=== PATIENT | female | born 1970 | race Caucasian/White ===

== ENCOUNTER 2021-08-14 15:27 | Outpatient (CLI) | payer OTHER, SELFPAY ==
--- NOTE | ~2021-08-14 | MR_ITS ---
EXAMINATION: MR brain IAC wo con DATE: 08/14/2021 16:28 INDICATION: Headache, unspecified. TECHNIQUE: Magnetic resonance imaging (MRI) of the brain, brainstem, and internal auditory canals was performed without intravenous contrast. COMPARISON: None. FINDINGS: There is no intracranial hemorrhage, acute infarction, or abnormal intracranial mass lesion . The ventricles are normal in size. The orbits are normal. The paranasal sinuses are clear. The mast oid air cells are normal. The internal auditory canals and inner and middle ears are normal. IMPRESSION: 1. Normal brain. Reviewed, dictated and finalized at location A. IMPRESSION: 1. Normal brain.
== END 2021-08-14 15:28 | disposition home or self-care (01) ==
PROVIDERS: PCP Internal Medicine; Visit Provider Physician Assistant
DX: R51.9 Headache, unspecified (principal)
CPT/HCPCS: 70551

== ENCOUNTER 2022-06-24 07:47 | Day surgery (SDC) | payer OTHER, SELFPAY ==
[2022-06-13 09:09] VITALS: BMI 32.5
--- NOTE | 2022-06-24 09:01 | PM.HPGS ---
History of Present Illness History of Present Illness Consent: Risks, benefits, and alternatives have been discussed and questions answered. Patient agrees to proceed with procedure. Chief complaint: Neoplasm Screening Narrative: Bernice Benavides is a 52 year old female here for first screening colonoscopy Review of Systems Constitutional: Constitutional: Denies headache(s) and Denies weakness Eyes: Eyes: Denies blurry vision ENT: Reports Normal hearing present, Denies headache(s) and Denies neck pain Cardiovascular: Cardiovascular: Denies chest pain and Denies dyspnea Respiratory: Respiratory: Denies dyspnea Gastrointestinal: Gastrointestinal: Reports no additional gastrointestinal complaints Genitourinary: Genitourinary: Denies dysuria Musculoskeletal: Musculoskeletal: Denies neck pain Integumentary/Breasts: Skin/Breast: Denies dry skin Neurologic: Reports Normal hearing present, Denies headache(s) and Denies weakness Psychiatric: Psychiatric: Denies anxiety Endocrine: Endocrine: Denies change in body appearance Hematologic/Lymphatic: Hematologic/Lymphatic: Denies easy bleeding Allergic/Immunologic: Allergic/Immunologic: Denies urticaria PMFSH Past Medical History Medical History (Updated 06/24/22 @ 09:02 by Yoshi Joiner MD) Anxiety and depression Colon cancer screening High cholesterol Screening mammogram, encounter for Surgical History Surgical History History of gynecological procedure (09/20/19) mirena iud insertion Family History Family History Mother Patient's mother is in good health Father Patient's father is in good health Social History Social History (Updated 05/07/22 @ 15:30 by Shane Baltazar MA) Smoking packs per day: 1 Smoking cigarettes per day: 20.0 Years smoked: 35 Smoking pack-years: 35.00 Smoking status: Current every day smoker Tobacco type: cigarettes Second hand tobacco smoke exposure: No Alcohol intake: current Alcohol use details: rarely Substance use: never Substance use type: does not use Lack of Transportation: No Lack of Food: Never True Current Housing: I Have Housing Concerned About Future Housing: No Difficulty Paying Gas/Electric Bills: No Difficulty Paying for Meds: No Currently Unemployed: No Education: Bachelor's Degree Difficulty w/ Childcare or Family Care: No Living arrangements: with family Spiritual care concerns: No Meds Home Medications and Allergies Home Medications Medication Instructions Recorded Confirmed Type alprazolam 0.5 mg tablet (Xanax) 0.5 mg PO BID PRN Anxiety 03/17/19 06/24/22 History fluoxetine 40 mg capsule (Prozac) 40 mg PO DAILY 03/17/19 06/24/22 History albuterol sulfate 90 mcg/actuation 2 puff inhalation Q4-6H PRN 12/25/21 06/24/22 Rx aerosol inhaler (ProAir HFA) shortness of breath or wheezing #8.5 grams simvastatin 20 mg tablet 20 mg PO DAILY #90 tabs 01/25/22 06/24/22 Rx ergocalciferol (vitamin D2) 1,250 50,000 unit PO WEEKLY #13 caps 04/26/22 06/24/22 Rx mcg (50,000 unit) capsule imiquimod 3.75 % topical cream 1 packet topical QHS #28 ea 05/07/22 06/24/22 Rx packet Allergies Allergy/AdvReac Type Severity Reaction Status Date / Time No Known Allergies Allergy Verified 06/24/22 08:34 Exam Const: General: comfortable and no acute distress HENMT: Face/Nose/Sinus: Normal nares present Eyes: General: appearance normal, both eyes and all related structures Neck: Neck: no JVD Resp: Auscultation: clear to auscultation bilaterally Cardio: Rate: regular rate Rhythm: regular rhythm GI: Inspection: non-distended GI Palp: Yes Soft to palpation Skin: General skin exam: normal color Neuro: General: gait normal Speech: normal speech Extrem: General: normal to inspection Psych: Mental Status: mental stat
[2022-06-24] MEDS: LACTATED RINGERS 1,000 ML 150 ML IV CONT (09:02)
[2022-06-24 09:22] VITALS: BP 118/63; PULSE 69; RESP 16; O2SAT 94
[2022-06-24 09:32] VITALS: BP 127/67; PULSE 62; RESP 20; O2SAT 94
--- NOTE | 2022-06-24 09:36 | WPDANESPN ---
Anes - Prog Note Post-Op Date/Time: 06/24/22 09:36 Cardiovascular status: normal Respiratory status: normal Airway patency: baseline Mental status: baseline Post-Op hydration status: normal Pain Score (VAS): 0 I/O: Intake & Output 06/23/22 06/24/22 06/24/22 23:59 07:59 15:59 Intake Total 200 Balance 200 Patient Feedback: Patient satisfied with anesthetic care.
[2022-06-24 09:42] VITALS: BP 146/67; PULSE 72; RESP 20; O2SAT 98
--- NOTE | 2022-06-24 09:46 | WPDANESEPPF ---
Anes - Initial Pre Proc Eval Procedure: Operation Date: 06/24/22 09:30 Proposed Procedures p Screening Colonoscopy - Yoshi Joiner MD Date/Time: 06/24/22 09:46 Surgeon: Yoshi Joiner MD Pre Op Diagnosis: Neoplasm Screening Patient Data Age: 52 Gender: F Height: 1.63 m Weight: 85.9 kg Last Vital Signs Pulse 62 06/24/22 09:32 Resp 20 06/24/22 09:32 BP 127/67 06/24/22 09:32 Pulse Ox 94 06/24/22 09:32 O2 Del Method Room Air 06/24/22 09:32 Allergies Allergy/AdvReac Type Severity Reaction Status Date / Time No Known Allergies Allergy Verified 06/24/22 08:34 Home Medications Medication Instructions Recorded Confirmed Type alprazolam 0.5 mg tablet (Xanax) 0.5 mg PO BID PRN Anxiety 03/17/19 06/24/22 History fluoxetine 40 mg capsule (Prozac) 40 mg PO DAILY 03/17/19 06/24/22 History albuterol sulfate 90 mcg/actuation 2 puff inhalation Q4-6H PRN 12/25/21 06/24/22 Rx aerosol inhaler (ProAir HFA) shortness of breath or wheezing #8.5 grams simvastatin 20 mg tablet 20 mg PO DAILY #90 tabs 01/25/22 06/24/22 Rx ergocalciferol (vitamin D2) 1,250 50,000 unit PO WEEKLY #13 caps 04/26/22 06/24/22 Rx mcg (50,000 unit) capsule imiquimod 3.75 % topical cream 1 packet topical QHS #28 ea 05/07/22 06/24/22 Rx packet Patient hx anesthesia problems: none Family hx anesthesia problems: none Results Review: All pre-operative results and documents have been reviewed as part of the pre-operative evaluation. [facility] Past Medical History Medical History Anxiety and depression Colon cancer screening High cholesterol Screening mammogram, encounter for Surgical History Surgical History History of gynecological procedure (09/20/19) mirena iud insertion Family History Family History Mother Patient's mother is in good health Father Patient's father is in good health Social History Social History Smoking packs per day: 1 Smoking cigarettes per day: 20.0 Years smoked: 35 Smoking pack-years: 35.00 Smoking status: Current every day smoker Tobacco type: cigarettes Second hand tobacco smoke exposure: No Alcohol intake: current Alcohol use details: rarely Substance use: never Substance use type: does not use Lack of Transportation: No Lack of Food: Never True Current Housing: I Have Housing Concerned About Future Housing: No Difficulty Paying Gas/Electric Bills: No Difficulty Paying for Meds: No Currently Unemployed: No Education: Bachelor's Degree Difficulty w/ Childcare or Family Care: No Living arrangements: with family Spiritual care concerns: No Anes - Eval Final PreProcedure Day of Procedure 06/24/22 09:46 Patient weight: obese Heart: regular rate and rhythm Lungs: decreased breath sounds Airway: Mallampati scale class II Neurological: alert and oriented Last oral intake: >/= 8 hours ASA classification: III Emergent: no Anesthetic plan: proceed Anesthesia type and monitoring: general GIVS and standard monitoring Results Review: All pre-operative results and documents have been reviewed as part of the pre-operative evaluation. Informed Consent: The patient's anesthetic plan and its attendant risks and benefits were discussed with the patient/family/POA. Questions were solicited and answers provided to the satisfaction of the patient/family/POA.
== END 2022-06-24 10:11 | disposition home or self-care (01) ==
PROVIDERS: PCP Internal Medicine; Visit Provider Internal Medicine Gastroenterology
PROC: 0DJD8ZZ Inspection of Lower Intestinal Tract, Via Natural or Artificial Opening Endoscopic (ICD-10-PCS; CPT 45378; principal; 2022-06-24 09:30)
DX: Z12.11 Encounter for screening for malignant neoplasm of colon (principal)
CPT/HCPCS: 45385

== ENCOUNTER 2022-06-24 09:00 | Outpatient (NON) | payer OTHER, SELFPAY | END 2022-06-24 09:01 | disposition home or self-care (01) | LOC: ANHLAB 06-25 10:19 | PROVIDERS: PCP Internal Medicine; Visit Provider Internal Medicine Gastroenterology | DX: Z12.11 Encounter for screening for malignant neoplasm of colon (principal) | CPT/HCPCS: 88305 ==

== ENCOUNTER → 2022-06-26 15:12 | Outpatient (CLI) | payer OTHER, SELFPAY ==
--- NOTE | ~2022-06-26 | MM_ITS ---
EXAMINATION: MM screening [facility] BI [facility] HISTORY: Screening mammogram TECHNIQUE: Craniocaudal and mediolateral oblique 3-D tomosynthesis images were obtained and synthetic 2-D images were generated. CAD analysis was submitted and interpreted. COMPARISON: 05/09/2016, 08/05/2008 BREAST PARENCHYMAL COMPOSITION: There are scattered areas of fibroglandular density. FINDINGS: No suspicious mass, calcification, or architectural distortion are identified in either jamir ast to suggest malignancy. There has been no suspicious interval change. IMPRESSION: 1. No mammographic evidence of malignancy. 2. Recommend routine screening mammography in one year. BI-RADS Category 1: Negative Reviewed, dictated and finalized at location A. 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
== END ==
PROVIDERS: PCP Internal Medicine; Visit Provider Obstetrics & Gynecology
DX: Z12.31 Encounter for screening mammogram for malignant neoplasm of breast (principal)
CPT/HCPCS: 77063; 77067

== ENCOUNTER 2023-03-31 13:37 | Outpatient (CLI) | payer OTHER, SELFPAY ==
--- NOTE | ~2023-03-31 | CT_ITS ---
CT Scan of the Chest without Contrast: Clinical Indication: Lung cancer screening, smoker Technique: Contiguous sections were acquired throughout the chest without intravenous contrast. Dose reduction technique was used on this scan by utilizing automated exposure control and iterative recon struction technique. The dose-length product (DLP) was 194.71 mGy-cm. Findings: There is no evidence of any significant mediastinal, hilar or axillary lymphadenopathy. The mediastin al soft tissues appear normal. There is no evidence of pleural or pericardial effusion. Calcified granulomas are present. No noncalcified pulmonary nodules. Images through the upper abdomen reveal no abnormalities. Impression: Lung RADS 2: Benign appearance. 12 month follow-up screening CT advised. Reviewed, dictated and finalized at location . 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 12 month follow-up screening CT advised.
== END 2023-03-31 13:38 | disposition home or self-care (01) ==
PROVIDERS: PCP Internal Medicine; Visit Provider Physician Assistant
DX: Z12.2 Encounter for screening for malignant neoplasm of respiratory organs (principal); Z87.891 Personal history of nicotine dependence
CPT/HCPCS: 71271

== ENCOUNTER 2023-06-28 11:09 | Outpatient (CLI) | payer OTHER, SELFPAY ==
--- NOTE | ~2023-06-28 | MM_ITS ---
EXAMINATION: MM screening [facility] HISTORY: Screening mammogram TECHNIQUE: Craniocaudal and mediolateral oblique 3-D tomosynthesis images were obtained and synthetic 2-D images were generated. CAD analysis was submitted and interpreted. COMPARISON: 06/26/2022, 05/09/2016 bilateral screening mammogram examinations BREAST PARENCHYMAL COMPOSITION: There are scattered areas of fibroglandular density. FINDINGS: Stable mild fibroglandular asymmetry. There is no evidence of suspicious mass, calcificatio n, or architectural distortion to suggest malignancy in either breast. There has been no suspicious i nterval change. IMPRESSION: 1. No mammographic evidence of malignancy. 2. Recommend routine screening mammography in one year. BI-RADS Category 1: Negative Reviewed, dictated and finalized at location A.
== END 2023-06-28 11:10 ==
LOC: MICIMG 11:09
PROVIDERS: PCP Obstetrics & Gynecology; Visit Provider Obstetrics & Gynecology
DX: Z12.31 Encounter for screening mammogram for malignant neoplasm of breast (principal)
CPT/HCPCS: 77063; 77067

== ENCOUNTER 2024-07-26 14:43 | Outpatient (CLI) | payer OTHER, SELFPAY ==
--- NOTE | ~2024-07-26 | MM_ITS ---
EXAMINATION: MM screening [facility] BI [facility] HISTORY: Screening TECHNIQUE: Craniocaudal and mediolateral oblique 3-D tomosynthesis images were obtained and synthetic 2-D images were generated. CAD analysis was submitted and interpreted. COMPARISON: Comparison to multiple prior studies sequentially, with oldest reviewed study dated 05/09. BREAST PARENCHYMAL COMPOSITION: Not dense: There are scattered areas of fibroglandular density. FINDINGS: There is no evidence of suspicious mass, calcification, or architectural distortion to sugg est malignancy in either breast. There has been no suspicious interval change. IMPRESSION: 1. No mammographic evidence of malignancy. 2. Recommend routine screening mammography in one year. BI-RADS Category 1: Negative Reviewed, dictated and finalized at location A.
== END 2024-07-26 14:44 | disposition home or self-care (01) ==
LOC: MICIMG 14:44
PROVIDERS: PCP Internal Medicine; Visit Provider Obstetrics & Gynecology
DX: Z12.31 Encounter for screening mammogram for malignant neoplasm of breast (principal)
CPT/HCPCS: 77063; 77067

== ENCOUNTER 2025-01-19 14:45 | Outpatient (CLI) | payer OTHER, SELFPAY ==
--- NOTE | ~2025-01-19 | CT_ITS ---
EXAMINATION:CT lung screening DATE: 01/19/2025 15:12 INDICATION: Tobacco use. Current smoker with 22 pack year history. TECHNIQUE: Computed tomography (CT) of the chest was performed without intravenous contrast. Automated exposure control and iterative reconstruction technique were employed. The dose-length product (DLP) was 148.29 mGy-cm. COMPARISON: Chest CT 03/31/2023 FINDINGS: There is mild emphysema. The lungs demonstrate minimal atelectasis. Calcified bilateral lung nodules and calcified bilateral hilar lymph nodes are consistent with old granulomatous disease. No pleural effusion. The heart size is normal. There are coronary artery calcifications. No pericardial effusion. There is mild thoracic spondylosis. There is mild chronic anterior wedging of T7 vertebral body. IMPRESSION: 1. Lung-RADS category 1: Negative. Continue annual screening with noncontrast low-dose chest CT in 12 months. Reviewed, dictated and finalized at location E. IMPRESSION: 1. Lung-RADS category 1: Negative. Continue annual screening with noncontrast l ow-dose chest CT in 12 months.
--- OUTSIDE RECORDS SUMMARY | 2025-01-19 14:49 | XMS_ITS | Clinical Summary ---
Author Organization [facility] Address [address] [place] [address] Care Team Providers Care Manager Safe Name Role Phone Unavailable Primary Care Provider Unavailabl e Source Comments [facility],non-owned Affiliates and Associated Physician Practices is amultiple site organization consisting of ambulatory clinics and hospital sitesin [place], [place], [place] and [place]. This disclosure is being madepursuant to the Care Everywhere program and may not contain all information available regarding this patient. Last updated 18.[facility] Allergies No known active allergies Medications * Be aware that medications may not be up to date on this document. Alwaysverify current medications with the patient. FLUoxetine HCl (PROZAC PO) Active DULoxetine HCl (CYMBALTA PO) Active ofloxacin (OCUFLOX) 0.3 % ophthalmic solution 1-2 gtts every 2-4 hours for 2 days, then QID x 5 days 1 bottles 01/03/2018 Active Family History Medical History Relation Name Comments Asthma Neg Hx Autoimmune Disease Neg Hx Bipolar Disorder Neg Hx Cancer - Breast Neg Hx Cancer - Colon Neg Hx Cancer - Other Neg Hx Cancer - Ovarian Neg Hx Cancer - Pancreatic Neg Hx Cancer - Prostate Neg Hx Depression Neg Hx Eczema Neg Hx Hypertension Neg Hx Migraine Neg Hx Osteoporosis Neg Hx Seizures Neg Hx Sudd. <30 Neg Hx Thyroid Disease Neg Hx Ulcerative Colitis Neg Hx Relation Name Status Comments Father Alive Mother Alive Social History Tobacco Use Types Packs/Day Years Used Date Smoking Tobacco: Every Day Smokeless Tobacco: Never Tobacco Cessation:Ready to Q uit: No; Counseling Given: No Alcohol Use Standard Drinks/Week Comments No 0 (1 standard drink = 0.6 oz pur e alcohol) Comments No Sex and Gender Information Value Date Recorded Sex Assigned at Not on file Legal Sex Female 2:47 PM CDT Gender Identity Not on file Sexual Orientation Not on file Last Filed Vital Signs Vital Sign Reading Time Taken Comments Blood Pressure 124/80 01/03/2018 2:55 PM CDT Pulse 80 01/03/2018 2:55 PM CDT Temperature 36.8 C (98.2 F) 01/03/2018 2:55 PM CDT Respiratory Rate 20 01/03/2018 2:55 PM CDT Oxygen Saturation 97% 01/03/2018 2:55 PM CDT Inhaled Oxygen Concentration - - Weight 81.6 kg (180 lb) 01/03/2018 2:55 PM CDT Height 162.6 cm (5' 4) 01/03/2018 2:55 PM CDT Body Mass Index 30.9 01/03/2018 2:55 PM CDT Plan of Treatment Health Maintenance Due Date Last Done Comments COLOGUARD (AGES 45-75) - COL ON CA SCREENING 1972 COLON MONITORING 1972 COLONOSCOPY - COLON CA SCREENING 1972 CT COLONOGRAPHY - COLON CA SCREENING 1972 Colorectal Cancer Screening 1972 FIT - COLON CA SCREENING 1972 FLEX SIG - COLON CA SCREENING 1972 LIPID TESTING 1972 MAMMOGRAM 1972 HIV SCREENING 02/07/1987 HEPATITIS C SCREENING 02/03/1990 DTAP/TDAP/TD VACCINES (1 - Tdap) 02/07/1991 HEPATITIS B VACCINE (1 of 3 - 19+ 3-dose series) 02/07/1991 PNEUMOCOCCAL VACCINE 50+ (1 of 2 - PCV) 02/07/1991 SCREENING FOR DIABETES 01/03/2018 ZOSTER VACCINE (1 of 2) 02/07/2022 DEPRESSION SCREENING 04/21/2024 COVID-19 VACCINE (1 - 2023-2 5 season) 2024 INFLUENZA VACCINE (#1) 2024 HIB VACCINE Aged Out No longer eligi ble based on patient's age to complete this topic HPV VACCINE Aged Out No longer eligi ble based on patient's age to complete this topic MENINGOCOCCAL (Group B) VACC INE SHARED DECISION-MAKING Aged Out No longer eligibl e based on patient's age to complete this topic MENINGOCOCCAL GROUPS A/C/Y/W VACCINE Aged Out No longer eligible b ased on patient's age to complete this topic Insurance [facility] Member Subscriber Plan / Payer (Ef fective 2017-Present) Name:Adrián Npaoles Relation to Subscriber:Self Name:Adrián Napoles Payer ID:[id number] (NAIC) Type:[employer] Address: [place] [phone] Member Subscriber Plan / Payer (Ef fective 2022-Present) Name:Adrián Napoles Relation to Subscriber:Self Name:ADRIÁN NAPOLES Payer ID:[id number] (NAIC) Type:[employer] Address: [place] [phone]
--- OUTSIDE RECORDS SUMMARY | 2025-01-19 14:49 | XMS_ITS | Patient Health Record ---
Author Organization [facility] Address [address] [place] [address] Care Team Providers Care Renal Dialysis Technician Name Role Phone Yassine HAYWARD Darrel Primary Care Provider Unavailleah ernestina Bernice Fofana Unavailable [phone] Allergies No Known Allergies Results Component Value Reference Range Flag Notes DRUG MONITOR,AMPHETAMINE, W/ DL, QN URINE (00525) Reviewed date:09/09/2024 08:16:55 AM Interpretation: Performing Lab:SARAH [facility] Opdx1415 [facility] EddbAC[address] Domenico Peres, Director - [address] [address] [facility] Notes/Report: FASTING: NO Amphetamine NEGATIVE <250 ng/mL Methamphetamine NEGATIVE <250 ng/mL Amphetamines Comments See LDT Notes Notes and Comments This drug testing is for medical treatment only. Analysis was performed as non-forensic testing and these results should be used only by healthcare providers to render diagnosis or treatment, or to monitor progress of medical conditions. Benzodiazepines Notes: aOH Alprazolam detected is consistent with the use of the drug Alprazolam. Buprenorphine Notes: Buprenorphine, Norbuprenorphine detected is consistent with the use of the drug(s) Buprenorphine or Buprenorphine with Naloxone. Naloxone may be negative due to poor oral bioavailability and/or short half-life. Buprenorphine, Norbuprenorphine, Naloxone detected is consistent with the use of the drug Buprenorphine and Naloxone. LDT Notes: Confirmation tests were developed and their analytical performance characteristics have been determined by [facility]. It has not been cleared or approved by the FDA. This assay has been validated pursuant to the CLIA regulations and is used for clinical purposes. medMATCH(R) enables providers to identify if drug use is consistent or inconsistent with a corresponding prescribed medication(s) list. Healthcare Providers needing Interpretation assistance, please contact us at [phone] ( ) M-F, 8am to 10pm EST DRUG MONITOR, BENZO, QN, URI NE ([id number]) Reviewed date:09/09/2024 08:16:44 AM Interpretation: Performing Lab:SARAH [facility] [address], TARIS BiomedicalKiviYM[address] Domenico Peres Notes/Report: FASTING: NO Alphahydroxyalprazolam 120 <25 ng/mL H medMATCH aOH alprazolam INCONSISTENT A Alphahydroxymidazolam NEGATIVE <50 ng/mL Alphahydroxytriazolam NEGATIVE <50 ng/mL Aminoclonazepam NEGATIVE <25 ng/mL Hydroxyethylflurazepam NEGATIVE <50 ng/mL Lorazepam NEGATIVE <50 ng/mL Nordiazepam NEGATIVE <50 ng/mL Oxazepam NEGATIVE <50 ng/mL Temazepam NEGATIVE <50 ng/mL Benzodiazepines Comments See Benzodiazepines Notes, LDT Notes DRUG MONITOR, METHADONE META B, QN, URINE ([id number]) Reviewed date:09/09/2024 08:15:42 AM Interpretation: Performing Lab:SARAH [facility] [address], KimLink Auto DetailingZjlcLE[address] Domenico Peres Notes/Report: FASTING: NO EDDP NEGATIVE <100 ng/mL Methadone NEGATIVE <100 ng/mL Methadone Comments See LD T Notes DRUG MONITOR, OPIATES EXPAND ED, QN, URINE ([id number]) Reviewed date:09/09/2024 08:15:11 AM Interpretation: Performing Lab:SARAH [facility] [address], KimLink Auto DetailingRyokZC[address] Domenico Peres Notes/Report: FASTING: NO Codeine NEGATIVE <50 ng/mL Hydrocodone NEGATIVE <50 ng/mL Hydromorphone NEGATIVE <50 ng/mL Morphine NEGATIVE <50 ng/mL Norhydrocodone NEGATIVE <50 ng/mL Opiates Comments See LDT Notes Noroxycodone NEGATIVE <50 ng/mL Oxycodone NEGATIVE <50 ng/mL Oxymorphone NEGATIVE <50 ng/mL Oxycodone Comments See LD T Notes DRUG MONITOR, BUP AND NALOXO NE,QN,URINE ([id number]) Reviewed date:09/09/2024 08:16:28 AM Interpretation: Performing Lab:Kelli SMITH-Miguel [address], [place] SqrgBT[address] Domenico Peres Notes/Report: FASTING: NO Buprenorphine 141 <2 ng/mL H medMATCH Buprenorphine INCONSISTENT A Norbuprenorphine 373 <2 ng/mL H medMATCH Norbuprenorphine INCONSISTENT A Naloxone 314 <2 ng/mL H medMATCH Naloxone INCONSISTENT A Buprenorphine Comments Se e Buprenorphine Notes, LDT Notes DRUG MONITOR,CARISOPRODOL ME TAB, QN, URINE ([id number]) Reviewed date:09/09/2024 08:16:03 AM Interpretation: Performing Lab:Kelli SMITH-Miguel [address], [place] OmcsKT[address] Domenico Peres Notes/Report: FASTING: NO Meprobamate NEGATIVE <1000 ng/mL Carisoprodol Comments See LDT Notes PRESCRIBED DRUGS, medMATCH(R ) ([id number]) Reviewed date:09/09/2024 08:17:07 AM Interpretation: Performing Lab:Kelli BLAND-Bsvema[address], NivoedAT[address] Norah Mays MD Notes/Report: FASTING: NO medMATCH Summary Prescribed Prescribed Not Prescribed Consistent Inconsistent Inconsistent Alphahydroxyalprazol am Buprenorphine Naloxone Norbuprenorphine DRUG MONITOR,MITRAGYNINE, QN , URINE ([id number]) Reviewed date:09/09/2024 08:15:32 AM Interpretation: Performing Lab:Kelli SMITH-Miguel [address], [place] RxxpCB[address] Domenico Peres Notes/Report: FASTING: NO Mitragynine NEGATIVE <2 ng/mL Mitragynine Comments See LDT Notes DRUG MONITOR,AMPHETAMINE, W/ DL, QN URINE ([id number]) Reviewed date:10/07/2024 11:41:45 AM Interpretation: Performing Lab:Kelli SMITH-Miguel Kennedye13[address] [facility]oni[facility] HospitalMiguel méndezMmjhMJ[address] Domenico V Ja, Director - [address] [address] [facility] Notes/Report: FASTING: NO Amphetamine NEGATIVE <250 ng/mL Methamphetamine NEGATIVE <250 ng/mL Amphetamines Comments See LDT Notes Notes and Comments This drug testing is for medical treatment only. Analysis was performed as non-forensic testing and these results should be used only by healthcare providers to render diagnosis or treatment, or to monitor progress of medical conditions. Benzodiazepines Notes: aOH Alprazolam detected is consistent with the use of the drug Alprazolam. Buprenorphine Notes: Buprenorphine, Norbuprenorphine detected is consistent with the use of the drug(s) Buprenorphine or Buprenorphine with Naloxone. Naloxone may be negative due to poor oral bioavailability and/or short half-life. Buprenorphine, Norbuprenorphine, Naloxone detected is consistent with the use of the drug Buprenorphine and Naloxone. LDT Notes: Confirmation tests were developed and their analytical performance characteristics have been determined by [facility]. It has not been cleared or approved by the FDA. This assay has been validated pursuant to the CLIA regulations and is used for clinical purposes. medMATCH(R) enables providers to identify if drug use is consistent or inconsistent with a corresponding prescribed medication(s) list. Healthcare Providers needing Interpretation assistance, please contact us at [phone] ( ) M-F, 8am to 10pm EST PRESCRIBED DRUGS, medMATCH(R ) (28687) Reviewed date:10/07/2024 11:42:05 AM Interpretation: Performing Lab:Kelli BLAND [employer]-Yeyqad[address], SutiqqWK[address] Norah Mays MD Notes/Report: FASTING: NO medMATCH Summary Prescribed Prescribed Not Prescribed Consistent Inconsistent Inconsistent Alprazolam Naloxone Buprenorphine Prescribed Drug 1 Alprazolam Prescribed Drug 2 Buprenorphine DRUG MONITOR, NALTREXONE, QN , URIN (50286) Reviewed date:10/07/2024 11:40:42 AM Interpretation: Performing Lab:Kelli SMITH-Miguel [address], TARIS BiomedicalQwmpPB[address] Domenico Peres Notes/Report: FASTING: NO Naltrexone NEGATIVE <5 ng/mL 6 Beta Naltrexol NEGATIVE <5 ng/mL Naltrexone Comments See L DT Notes DRUG MONITOR, BUP AND NALOXO NE,QN,URINE (35534) Reviewed date:10/07/2024 11:41:21 AM Interpretation: Performing Lab:SARAH [facility]-[employer] Detailinge[address], [employer] Serv[employer] SolutionsXnymTA[address] Domenico Peres Notes/Report: FASTING: NO Buprenorphine 225 <2 ng/mL H medMATCH Buprenorphine CONSISTENT Norbuprenorphine 547 <2 ng/mL H medMATCH Norbuprenorphine CONSISTENT Naloxone 1054 <2 ng/mL H medMATCH Naloxone INCONSISTENT A Buprenorphine Comments Se e Buprenorphine Notes, LDT Notes DRUG MONITOR, OPIATES EXPAND ED, QN, URINE ([id number]) Reviewed date:10/07/2024 11:40:32 AM Interpretation: Performing Lab:SARAH [facility]-[employer] Detailinge[address] [employer], [employer] Servicing SolutionsJmjaFB[address] Domenico Peres Notes/Report: FASTING: NO Codeine NEGATIVE <50 ng/mL Hydrocodone NEGATIVE <50 ng/mL Hydromorphone NEGATIVE <50 ng/mL Morphine NEGATIVE <50 ng/mL Norhydrocodone NEGATIVE <50 ng/mL Opiates Comments See LDT Notes Noroxycodone NEGATIVE <50 ng/mL Oxycodone NEGATIVE <50 ng/mL Oxymorphone NEGATIVE <50 ng/mL Oxycodone Comments See LD T Notes DRUG MONITOR, BENZO, QN, URI NE (76266) Reviewed date:10/07/2024 11:41:34 AM Interpretation: Performing Lab:SARAH [facility] [address], TARIS BiomedicalAzdwTM[address] Domenico Peres Notes/Report: FASTING: NO Alphahydroxyalprazolam 124 <25 ng/mL H medMATCH aOH alprazolam CONSISTENT Alphahydroxymidazolam NEGATIVE <50 ng/mL Alphahydroxytriazolam NEGATIVE <50 ng/mL Aminoclonazepam NEGATIVE <25 ng/mL Hydroxyethylflurazepam NEGATIVE <50 ng/mL Lorazepam NEGATIVE <50 ng/mL Nordiazepam NEGATIVE <50 ng/mL Oxazepam NEGATIVE <50 ng/mL Temazepam NEGATIVE <50 ng/mL Benzodiazepines Comments See Benzodiazepines Notes, LDT Notes UDT Reviewed date:07/23/2024 03:04:40 PM Interpretation: Performing Lab: Notes/Report: THC NEG 0 - 50 ng/ml Cocaine NEG 0 - 300 ng/ml Amphetamine NEG 0 - 1000 ng/ml Buprenorphine (BUP) POS 0 - 10 ng/ml Secobarbital (Bar) NEG 0 - 300 ng/ml Oxazepam (BZO) POS 0 - 300 ng/ml 6-quecyujrni-0,9-qrrtlsex-0, 3-dip henylpyrrolidine (EDDP) NEG 0 - 300 ng/ml Methamphetamine (MET) NEG 0 - 1000 ng/ml Methylenedioxymethamphetamin e (MDMA) NEG 0 - 500 ng/ml Morphine (MOP 300/JZQ7342) NEG 0 - 300 ng/ml Methadone (MTD) NEG 0 - 300 ng/ml Phencyclidine (PCP) NEG 0 - 25 ng/ml Nortriptyline (TCA) NEG 0 - 1000 ng/ml Oxycodone NEG 0 - 300 ng/ml x NEG 0 - 300 ng/ml UDT Reviewed date:09/02/2024 03:30:46 PM Interpretation: Performing Lab: Notes/Report: THC NEG 0 - 50 ng/ml Cocaine NEG 0 - 300 ng/ml Amphetamine NEG 0 - 1000 ng/ml Buprenorphine (BUP) POS 0 - 10 ng/ml Secobarbital (Bar) NEG 0 - 300 ng/ml Oxazepam (BZO) POS 0 - 300 ng/ml 9-gokwrypehq-7,6-oxnvhoev-6, 3-dip henylpyrrolidine (EDDP) NEG 0 - 300 ng/ml Methamphetamine (MET) NEG 0 - 1000 ng/ml Methylenedioxymethamphetamin e (MDMA) NEG 0 - 500 ng/ml Morphine (MOP 300/HTH0869) NEG 0 - 300 ng/ml Methadone (MTD) NEG 0 - 300 ng/ml Phencyclidine (PCP) NEG 0 - 25 ng/ml Nortriptyline (TCA) NEG 0 - 1000 ng/ml Oxycodone NEG 0 - 300 ng/ml x NEG 0 - 300 ng/ml UDT Reviewed date:08/02/2024 12:14:02 PM Interpretation: Performing Lab: Notes/Report: THC NEG 0 - 50 ng/ml Cocaine NEG 0 - 300 ng/ml Amphetamine NEG 0 - 1000 ng/ml Buprenorphine (BUP) POS 0 - 10 ng/ml Secobarbital (Bar) NEG 0 - 300 ng/ml Oxazepam (BZO) POS 0 - 300 ng/ml 0-aubqczlzvr-0,5-xjezmzsi-4, 3-dip henylpyrrolidine (EDDP) NEG 0 - 300 ng/ml Methamphetamine (MET) NEG 0 - 1000 ng/ml Methylenedioxymethamphetamin e (MDMA) NEG 0 - 500 ng/ml Morphine (MOP 300/UNX7981) NEG 0 - 300 ng/ml Methadone (MTD) NEG 0 - 300 ng/ml Phencyclidine (PCP) NEG 0 - 25 ng/ml Nortriptyline (TCA) NEG 0 - 1000 ng/ml Oxycodone NEG 0 - 300 ng/ml x NEG 0 - 300 ng/ml DRUG MONITOR, BENZO, QN, URI NE ([id number]) Reviewed date:07/29/2024 08:10:04 AM Interpretation: Performing Lab:SARAH [facility]-[employer] Detailinge[address] [employer] Domenico Peres Notes/Report: FASTING: NO Alphahydroxyalprazolam 182 <25 ng/mL H medMATCH aOH alprazolam CONSISTENT Alphahydroxymidazolam NEGATIVE <50 ng/mL Alphahydroxytriazolam NEGATIVE <50 ng/mL Aminoclonazepam NEGATIVE <25 ng/mL Hydroxyethylflurazepam NEGATIVE <50 ng/mL Lorazepam NEGATIVE <50 ng/mL Nordiazepam NEGATIVE <50 ng/mL Oxazepam NEGATIVE <50 ng/mL Temazepam NEGATIVE <50 ng/mL Benzodiazepines Comments See Benzodiazepines Notes, LDT Notes DRUG MONITOR, BUP AND NALOXO NE,QN,URINE ([id number]) Reviewed date:07/29/2024 08:09:52 AM Interpretation: Performing Lab:SARAH [facility]-Kim[employer] Auto Detailinge[address] PlateJoyL[address] Domenico Peres, Director - [address] [facility] Notes/Report: FASTING: NO Buprenorphine 524 <2 ng/mL H medMATCH Buprenorphine INCONSISTENT A Norbuprenorphine 997 <2 ng/mL H medMATCH Norbuprenorphine INCONSISTENT A Naloxone 1612 <2 ng/mL H medMATCH Naloxone INCONSISTENT A Buprenorphine Comments Se e Buprenorphine Notes, LDT Notes Notes and Comments This drug testing is for medical treatment only. Analysis was performed as non-forensic testing and these results should be used only by healthcare providers to render diagnosis or treatment, or to monitor progress of medical conditions. Benzodiazepines Notes: aOH Alprazolam detected is consistent with the use of the drug Alprazolam. Buprenorphine Notes: Buprenorphine, Norbuprenorphine detected is consistent with the use of the drug(s) Buprenorphine or Buprenorphine with Naloxone. Naloxone may be negative due to poor oral bioavailability and/or short half-life. Buprenorphine, Norbuprenorphine, Naloxone detected is consistent with the use of the drug Buprenorphine and Naloxone. LDT Notes: Confirmation tests were developed and their analytical performance characteristics have been determined by [facility]. It has not been cleared or approved by the FDA. This assay has been validated pursuant to the CLIA regulations and is used for clinical purposes. medMATCH(R) enables providers to identify if drug use is consistent or inconsistent with a corresponding prescribed medication(s) list. Healthcare Providers needing Interpretation assistance, please contact us at [phone] ( ) M-F, 8am to 10pm EST PRESCRIBED DRUGS, medMATCH(R ) ([id number]) Reviewed date:07/29/2024 08:10:19 AM Interpretation: Performing Lab:BALDO [facility]-Jsrlbn[address], MfcqyyZA[address] Norah Mays MD Notes/Report: FASTING: NO medMATCH Summary Prescribed Prescribed Not Prescribed Consistent Inconsistent Inconsistent Alprazolam Buprenorphine Naloxone Norbuprenorphine Prescribed Drug 1 Alprazolam DRUG MONITOR,AMPHETAMINE, W/ DL, QN URINE (25099) Reviewed date:08/12/2024 08:01:30 AM Interpretation: Performing Lab:Kelli SMITH-Miguel Pnmt[address], [place] KennedyXrevKT[address] Domenico Peres, Director - [address] [address] GarrettBaihe-[place] Notes/Report: FASTING: NO Amphetamine NEGATIVE <250 ng/mL Methamphetamine NEGATIVE <250 ng/mL Amphetamines Comments See LDT Notes Notes and Comments This drug testing is for medical treatment only. Analysis was performed as non-forensic testing and these results should be used only by healthcare providers to render diagnosis or treatment, or to monitor progress of medical conditions. Benzodiazepines Notes: aOH Alprazolam detected is consistent with the use of the drug Alprazolam. Buprenorphine Notes: Buprenorphine, Norbuprenorphine detected is consistent with the use of the drug(s) Buprenorphine or Buprenorphine with Naloxone. Naloxone may be negative due to poor oral bioavailability and/or short half-life. Buprenorphine, Norbuprenorphine, Naloxone detected is consistent with the use of the drug Buprenorphine and Naloxone. LDT Notes: Confirmation tests were developed and their analytical performance characteristics have been determined by [facility]. It has not been cleared or approved by the FDA. This assay has been validated pursuant to the CLIA regulations and is used for clinical purposes. medMATCH(R) enables providers to identify if drug use is consistent or inconsistent with a corresponding prescribed medication(s) list. Healthcare Providers needing Interpretation assistance, please contact us at [phone] ( ) M-F, 8am to 10pm EST DRUG MONITOR, BENZO, QN, URI NE ([id number]) Reviewed date:08/12/2024 08:01:20 AM Interpretation: Performing Lab:Kelli SMITH-[employer] Detailinge[address], KimLink Auto DetailingSywwIJ[address] Domenico Peres Notes/Report: FASTING: NO Alphahydroxyalprazolam 140 <25 ng/mL H medMATCH aOH alprazolam CONSISTENT Alphahydroxymidazolam NEGATIVE <50 ng/mL Alphahydroxytriazolam NEGATIVE <50 ng/mL Aminoclonazepam NEGATIVE <25 ng/mL Hydroxyethylflurazepam NEGATIVE <50 ng/mL Lorazepam NEGATIVE <50 ng/mL Nordiazepam NEGATIVE <50 ng/mL Oxazepam NEGATIVE <50 ng/mL Temazepam NEGATIVE <50 ng/mL Benzodiazepines Comments See Benzodiazepines Notes, LDT Notes DRUG MONITOR, MARIJUANA META B, QN, URINE ([id number]) Reviewed date:08/12/2024 08:00:26 AM Interpretation: Performing Lab:SARAH [facility]-[address], [facility] HospitalOojmFR[address] Domenico Peres Notes/Report: FASTING: NO Marijuana Metabolite NEGATIVE <5 ng/mL Marijuana Comments See LD T Notes DRUG MONITOR, METHADONE META B, QN, URINE (93785) Reviewed date:08/12/2024 08:00:16 AM Interpretation: Performing Lab:SARAH [facility] [address], [facility] CenterOymfPY[address] Domenico Peres Notes/Report: FASTING: NO EDDP NEGATIVE <100 ng/mL Methadone NEGATIVE <100 ng/mL Methadone Comments See LD T Notes DRUG MONITOR, BUP AND NALOXO NE,QN,URINE (50410) Reviewed date:08/12/2024 08:01:10 AM Interpretation: Performing Lab:SARAH [facility]-Wood Km[address], [facility] CenterPlcoEK[address] Domenico Peres Notes/Report: FASTING: NO Buprenorphine 171 <2 ng/mL H medMATCH Buprenorphine CONSISTENT Norbuprenorphine 465 <2 ng/mL H medMATCH Norbuprenorphine CONSISTENT Naloxone 811 <2 ng/mL H medMATCH Naloxone CONSISTENT Buprenorphine Comments Se e Buprenorphine Notes, LDT Notes DRUG MONITOR, HEROIN METAB, QN, URINE (77409) Reviewed date:08/12/2024 08:00:37 AM Interpretation: Performing Lab:SARAH [facility]-Miguel [address], [facility] CenterFpsmLX[address] Domenico Peres Notes/Report: FASTING: NO 6 Acetylmorphine NEGATIVE <10 ng/mL Heroin Metab Comments See LDT Notes DRUG MONITOR, COCAINE METAB, QN, URINE (54409) Reviewed date:08/12/2024 08:00:49 AM Interpretation: Performing Lab:SARAH [facility]-Wood [address], [facility] CenterYmwlNF[address] Domenico Peres Notes/Report: FASTING: NO Benzoylecgonine NEGATIVE <100 ng/mL Cocaine Comments See LDT Notes PRESCRIBED DRUGS, medMATCH(R ) (78408) Reviewed date:08/12/2024 08:01:41 AM Interpretation: Performing Lab:BALDO, [facility]-Otoihx[address], AdjerbDV[address] Norah Masy MD Notes/Report: FASTING: NO medMATCH Summary Prescribed Prescribed Not Prescribed Consistent Inconsistent Inconsistent Alprazolam Suboxone(TM) Prescribed Drug 1 Alprazolam Prescribed Drug 2 Suboxone(TM) DRUG MONITOR,ESZOPICLONE, QN , URINE (51382) Reviewed date:08/12/2024 07:59:43 AM Interpretation: Performing Lab:CB, [facility] [address], Kim[employer] Auto DetailingKziqZT[address] Domenico Peres Notes/Report: FASTING: NO Eszopiclone TNP N TEST NOT PERFORMED Specimen received at incorrect temperature. DRUG MONITOR, NALTREXONE, QN , URIN ([id number]) Reviewed date:08/12/2024 08:00:04 AM Interpretation: Performing Lab:AT, [facility]-Edftoln9786 [facility] HarrisburgA[address] [address] Yoav Terry Notes/Report: FASTING: NO Naltrexone NEGATIVE <5 ng/mL 6 Beta Naltrexol NEGATIVE <5 ng/mL Naltrexone Comments See L DT Notes DRUG MONITOR,MITRAGYNINE, QN , URINE ([id number]) Reviewed date:08/12/2024 07:59:54 AM Interpretation: Performing Lab:CB, [facility] [address], Kim[employer] Auto DetailingUohuJS[address] Domenico Peres Notes/Report: FASTING: NO Mitragynine NEGATIVE <2 ng/mL Mitragynine Comments See LDT Notes DRUG MONITOR, BENZO, QN, URI NE (41080) Reviewed date:11/12/2024 08:09:15 AM Interpretation: Performing Lab:CB, [facility] [address], Kim[employer] Auto DetailingXxudBF[address] Domenico Peres Notes/Report: FASTING: NO Alphahydroxyalprazolam 319 <25 ng/mL H medMATCH aOH alprazolam INCONSISTENT A Alphahydroxymidazolam NEGATIVE <50 ng/mL Alphahydroxytriazolam NEGATIVE <50 ng/mL Aminoclonazepam NEGATIVE <25 ng/mL Hydroxyethylflurazepam NEGATIVE <50 ng/mL Lorazepam NEGATIVE <50 ng/mL Nordiazepam NEGATIVE <50 ng/mL Oxazepam NEGATIVE <50 ng/mL Temazepam NEGATIVE <50 ng/mL Benzodiazepines Comments See Benzodiazepines Notes, LDT Notes DRUG MONITOR, MARIJUANA META B, QN, URINE (79484) Reviewed date:11/12/2024 08:08:26 AM Interpretation: Performing Lab:SARAH, [facility] [address], [place] YqjhKI[address] Domenico Peres Notes/Report: FASTING: NO Marijuana Metabolite NEGATIVE <5 ng/mL Marijuana Comments See LD T Notes DRUG MONITOR, METHADONE META B, QN, URINE (64099) Reviewed date:11/12/2024 08:08:20 AM Interpretation: Performing Lab:SARAH, [facility] [address], [place] AgzkGC[address] Domenico Peres Notes/Report: FASTING: NO EDDP NEGATIVE <100 ng/mL Methadone NEGATIVE <100 ng/mL Methadone Comments See LD T Notes DRUG MONITOR, OPIATES EXPAND ED, QN, URINE (16384) Reviewed date:11/12/2024 08:08:13 AM Interpretation: Performing Lab:SARAH, [facility] [address], [place] SeaeWK[address] Domenico Peres Notes/Report: FASTING: NO Codeine NEGATIVE <50 ng/mL Hydrocodone NEGATIVE <50 ng/mL Hydromorphone NEGATIVE <50 ng/mL Morphine NEGATIVE <50 ng/mL Norhydrocodone NEGATIVE <50 ng/mL Opiates Comments See LDT Notes Noroxycodone NEGATIVE <50 ng/mL Oxycodone NEGATIVE <50 ng/mL Oxymorphone NEGATIVE <50 ng/mL Oxycodone Comments See LD T Notes DRUG MONITOR, FENTANYL, QN, URINE (64445) Reviewed date:11/12/2024 08:08:39 AM Interpretation: Performing Lab:SARAH, [facility] [address], KimLink Auto DetailingMvymXP[address] Domenico Peres Notes/Report: FASTING: NO Fentanyl NEGATIVE <0.5 ng/mL Norfentanyl NEGATIVE <0.5 ng/mL Fentanyl Comments See LDT Notes DRUG MONITOR, BUP AND NALOXO NE,QN,URINE (05137) Reviewed date:11/12/2024 08:09:02 AM Interpretation: Performing Lab:SARAH [facility]I [address], TARIS BiomedicalXstcDP[address] Domenico Peres Notes/Report: FASTING: NO Buprenorphine 688 <2 ng/mL H medMATCH Buprenorphine INCONSISTENT A Norbuprenorphine 1534 <2 ng/mL H medMATCH Norbuprenorphine INCONSISTENT A Naloxone >2000 <2 ng/mL H medMATCH Naloxone INCONSISTENT A Buprenorphine Comments Se e Buprenorphine Notes, LDT Notes DRUG MONITOR,CARISOPRODOL ME TAB, QN, URINE (16621) Reviewed date:11/12/2024 08:08:45 AM Interpretation: Performing Lab:SARAH [facility] HTI Yqov[address] [employer], TARIS BiomedicalFhkyJA[address] Domenico Peres, Director - [address] [facility] CenterBaiheWata[facility] Notes/Report: FASTING: NO Meprobamate NEGATIVE <1000 ng/mL Carisoprodol Comments See LDT Notes Notes and Comments This drug testing is for medical treatment only. Analysis was performed as non-forensic testing and these results should be used only by healthcare providers to render diagnosis or treatment, or to monitor progress of medical conditions. Benzodiazepines Notes: aOH Alprazolam detected is consistent with the use of the drug Alprazolam. Buprenorphine Notes: Buprenorphine, Norbuprenorphine detected is consistent with the use of the drug(s) Buprenorphine or Buprenorphine with Naloxone. Naloxone may be negative due to poor oral bioavailability and/or short half-life. Buprenorphine, Norbuprenorphine, Naloxone detected is consistent with the use of the drug Buprenorphine and Naloxone. LDT Notes: Confirmation tests were developed and their analytical performance characteristics have been determined by [facility]. It has not been cleared or approved by the FDA. This assay has been validated pursuant to the CLIA regulations and is used for clinical purposes. medMATCH(R) enables providers to identify if drug use is consistent or inconsistent with a corresponding prescribed medication(s) list. Healthcare Providers needing Interpretation assistance, please contact us at [phone] ( ) M-F, 8am to 10pm EST DRUG MONITOR, HEROIN METAB, QN, URINE (58238) Reviewed date:11/12/2024 08:08:33 AM Interpretation: Performing Lab:SARAH [facility] Kyhd[address]30 [facility], [place] SfhmRJ[address] Domenico Peres Notes/Report: FASTING: NO 6 Acetylmorphine NEGATIVE <10 ng/mL Heroin Metab Comments See LDT Notes PRESCRIBED DRUGS, medMATCH(R ) (83841) Reviewed date:11/12/2024 08:09:24 AM Interpretation: Performing Lab:[facility] Baihe-[id number] [facility]ina [facility], [id number] Norah Mays MD Notes/Report: FASTING: NO medMATCH Summary Prescribed Prescribed Not Prescribed Consistent Inconsistent Inconsistent Alphahydroxyalprazol am Buprenorphine Naloxone Norbuprenorphine UDT Reviewed date:09/30/2024 12:24:16 PM Interpretation: Performing Lab: Notes/Report: THC NEG 0 - 50 ng/ml Cocaine NEG 0 - 300 ng/ml Amphetamine NEG 0 - 1000 ng/ml Buprenorphine (BUP) POS 0 - 10 ng/ml Secobarbital (Bar) NEG 0 - 300 ng/ml Oxazepam (BZO) POS 0 - 300 ng/ml 0-lmjymdkjoq-1,4-gdbtmvty-2, 3-dip henylpyrrolidine (EDDP) NEG 0 - 300 ng/ml Methamphetamine (MET) NEG 0 - 1000 ng/ml Methylenedioxymethamphetamin e (MDMA) NEG 0 - 500 ng/ml Morphine (MOP 300/[id number]) NEG 0 - 300 ng/ml Methadone (MTD) NEG 0 - 300 ng/ml Phencyclidine (PCP) NEG 0 - 25 ng/ml Nortriptyline (TCA) NEG 0 - 1000 ng/ml Oxycodone NEG 0 - 300 ng/ml x NEG 0 - 300 ng/ml UDT Reviewed date:10/29/2024 11:55:55 AM Interpretation: Performing Lab: Notes/Report: THC n 0 - 50 ng/ml Cocaine n 0 - 300 ng/ml Amphetamine n 0 - 1000 ng/ml Buprenorphine (BUP) p 0 - 10 ng/ml Secobarbital (Bar) n 0 - 300 ng/ml Oxazepam (BZO) p 0 - 300 ng/ml 2-xpgkhtzaot-1,0-buogtdya-8, 3-dip henylpyrrolidine (EDDP) n 0 - 300 ng/ml Methamphetamine (MET) n 0 - 1000 ng/ml Methylenedioxymethamphetamin e (MDMA) n 0 - 500 ng/ml Morphine (MOP 300/[id number]) n 0 - 300 ng/ml Methadone (MTD) n 0 - 300 ng/ml Phencyclidine (PCP) n 0 - 25 ng/ml Nortriptyline (TCA) n 0 - 1000 ng/ml Oxycodone n 0 - 300 ng/ml x n 0 - 300 ng/ml UDT Reviewed date:12/28/2024 03:17:35 PM Interpretation: Performing Lab: Notes/Report: THC n 0 - 50 ng/ml Cocaine n 0 - 300 ng/ml Amphetamine n 0 - 1000 ng/ml Buprenorphine (BUP) p 0 - 10 ng/ml Secobarbital (Bar) n 0 - 300 ng/ml Oxazepam (BZO) p 0 - 300 ng/ml 5-qzpnorhqvj-9,7-hxqukrnf-5, 3-dip henylpyrrolidine (EDDP) n 0 - 300 ng/ml Methamphetamine (MET) n 0 - 1000 ng/ml Methylenedioxymethamphetamin e (MDMA) nn 0 - 500 ng/ml Morphine (MOP 300/[id number]) n 0 - 300 ng/ml Methadone (MTD) n 0 - 300 ng/ml Phencyclidine (PCP) n 0 - 25 ng/ml Nortriptyline (TCA) n 0 - 1000 ng/ml Oxycodone p 0 - 300 ng/ml UDT Reviewed date:11/26/2024 11:58:49 AM Interpretation: Performing Lab: Notes/Report: THC N 0 - 50 ng/ml Cocaine N 0 - 300 ng/ml Amphetamine N 0 - 1000 ng/ml Buprenorphine (BUP) P 0 - 10 ng/ml Secobarbital (Bar) N 0 - 300 ng/ml Oxazepam (BZO) P 0 - 300 ng/ml 5-gzixhutuod-8,7-qgbhnsuj-3, 3-dip henylpyrrolidine (EDDP) N 0 - 300 ng/ml Methamphetamine (MET) N 0 - 1000 ng/ml Methylenedioxymethamphetamin e (MDMA) N 0 - 500 ng/ml Morphine (MOP 300/[id number]) N 0 - 300 ng/ml Methadone (MTD) N 0 - 300 ng/ml Phencyclidine (PCP) N 0 - 25 ng/ml Nortriptyline (TCA) N 0 - 1000 ng/ml Oxycodone N 0 - 300 ng/ml Reason For Referral No Information Medications Medication SIG (Take, Route, Frequency, Duration) Notes Start Date End Date Status Vitamin D (Ergocalciferol) 1.25 MG (86764 UT) Capsule TAKE 1 CAPSULE BY MOUTH ONE TIME PER WEEK Oral; Duration: 28 Days Active Dicyclomine HCl 20 MG Tablet Oral 07/15/2023 Active Simvastatin 20 MG Tablet Oral 07/15/2023 Active ProAir HFA 108 (90 Base) MCG/ACT Aerosol Solution Inhalation 07/15/2023 Act nelson busPIRone HCl 5 MG Tablet 1 tablet Orall y Twice a day; Duration: 30 days Active hydrOXYzine HCl 10 MG Tablet 1 tablet as needed Orally 3 times a day; Duration: 30 days Active Simvastatin 10 MG Tablet Oral 07/15/2023 Not-Taking Gabapentin 100 MG Capsule Oral 07/15/2023 Not-Taking ALPRAZolam 0.5 MG Tablet 1 tablet Orally Twice a day; Duration: 30 days 12/28/2024 Active busPIRone HCl 10 MG Tablet Oral 07/15/2023 Not-Taking Divalproex Sodium 250 MG Tablet Delayed Release Oral 07/15/2023 Not-T aking Buprenorphine HCl-Naloxone HCl 8-2 MG Film DISSOLVE 1 FILM UNDER THE TONGUE TWICE A DAY Sublingual twice a day; Duration: 30 days 12/28/2024 01/27/2025 Active FLUoxetine HCl 20 MG Capsule 3 capsule Oral Once a day; Duration: 90 days 12/28/2024 Active hydrOXYzine HCl 25 MG Tablet 1 tablet Orally three times a day; Duration: 90 days Active Immunizations Vaccine Route Administration Date Status Comme nts Moderna Covid-19 Vaccine 1st dose Unknown 06/10/2020 Ad ministered Moderna Covid-19 Vaccine 1st dose Unknown 07/08/2020 Ad ministered Pfizer Biontech Covid-19 Vac cine 2nd dose Unknown 06/06/2021 Administered Social History Tobacco Use: Social History Observation Description Date Details (start date - stop date) Current Smoker 04/21/1987 - NA Sex Assigned At : Social History Observation Description Sex Assigned At Female Social History Household: Social Info Question Answer Notes Household Marital status: Number of adults in household: 2 Level of education: finished college Drug/Alcohol: Social Info Question Answer Notes AUDIT-C (Standard) Did you have a drink containing alcohol in the past year? Yes How often did you have six or more drinks on one occasion in the past year? Less than monthly (1 point) How many drinks did you have on a typical day when you were drinking in the past year? 1 or 2 drinks (0 point) How often did you have a drink containing alcohol in the past year? Monthly or less (1 point) Points 2 Interpretation Negative Caffeine Intake: 1-2 cups per day Tobacco Use: Social Info Question Answer Notes Tobacco Control (Standard) Tobacco use: Current smoker When did you start smoking? 04/21/1987 How often do you smoke cigarettes? Every day How many cigarettes a day do you smoke? 11-20 How soon after you wake up do you smoke your first cigarette? 6-30 minutes Are you interested in quitting? Not ready to quit Additional Details Category Social Info Options Details Migrated Social History Migrated Social History Alcohol Intake: None 10/17/2020,Tobacco Years: Current every day smoker 02/26/2018,Smoking Status: 31 04/01/2023 Drug/Alcohol: Do you smoke marijuana? Den ies Section Notes: Activities of Daily LivingAr e you able to care for yourself?: YesAre you blind or do you have difficulty seeing?: NoAre you deaf or do you have serious difficulty hearing? : NoDo you have difficulty concentrating, remembering or making decisions?: NoDo you have difficulty walking or climbing stairs?: NoDo you have difficulty dressing or bathing?: NoDo you have difficulty doing errands alone?: NoAre you able to walk?: Yes: walks without restrictionsDo you have transportation difficulties?: NoOtherEducation: 4 Year CollegeFamily history of heart disease?: NoHigh blood pressure: NoHigh Cholesterol: NoHigh number of sexual partners: NoHistory of inconsistent/no condom use: NoMarital status: MarriedGender Identity and LGBTQ IdentityGender identity: Identifies as FemaleAssigned sex at : FemaleSexual orientation: Straight or heterosexual, Substance UseDo you or have you ever smoked tobacco?: Current every day smokerHow many years have you smoked tobacco?: 31At what age did you start smoking tobacco?: 17How much tobacco do you smoke?: 1 pack per dayDo you or have you ever used any other forms of tobacco or nicotine?: NoDo you or have you ever used e-cigarettes or vape?: Never used electronic cigarettesDo you or have you ever used smokeless tobacco?: Never used smokeless tobaccoHow much tobacco do you chew?: noneWhat was the date of your most recent tobacco screening?: 07/15/2023Has tobacco cessation counseling been provided?: YesOn what date was tobacco cessation counseling provided?: 07/15/2023What is your level of alcohol consumption?: NoneHow many years have you consumed alcohol?: 27Do you use any illicit or recreational drugs?: NoWhich illicit or recreational drugs have you used?: NoneHave you used IV drugs?: NoWhat is your level of caffeine consumption?: ModerateEducation and OccupationWhat is the highest grade or level of school you have completed or the highest degree you have received?: Bachelor's degree (e.g., BA, AB, BS)Are you currently in school?: NoAre you currently employed?: YesWho is your employer?: [employer]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 and SexualityWhat is your relationship status?: MarriedAre you sexually active?: YesDo you use protection during sex?: NoHow many children do you have?: 1Home and EnvironmentAre you a caregiver?: NoDo you have any siblings?: 1Do you have smoke and carbon monoxide detectors in your home?: YesAre you passively exposed to smoke?: YesAre there any smokers in your house?: YesAre there any guns present in your home?: NoDiet and ExerciseWhat type of diet are you following?: RegularLifestyleDo you participate in social media?: YesDo you use your seat belt or car seat routinely?: YesAdvance DirectiveDo you have an advance directive?: YesWhat is your code status?: Full CodeDo you have a medical power of assistant district attorney?: Yes Problems Problem Type SNOMED Code ICD Code Onset Dates Problem Status W/U Status Risk Notes Problem Tobacco user (704984405) Nicotine dependence, unspecified, uncomplicated (F17.200) 07/15/19 24 Active confirmed Problem Mild recurrent major depression (34291547) Major depressive disorder, recurrent, mild (F33.0) 07/15/19 Active confirmed Problem Generalized anxiety disorder (36003068) Generalized anxiety disorder (F41.1) 07/15/19 Active confirmed Problem Screening for cardiovascular system disease (983355080) Encounter for screening for cardiovascular disorders (Z13.6) Active confirmed Problem Dietary management surveillance (104519450) Dietary counseling and surveillance (Z71.3) Active confirmed Problem Long-term current use of drug therapy (375918818) Other intermediate manager (current) drug therapy (Z79.899) 07/15/19 Active confirmed Problem Depression Screening (699918270) Encounter for screening for depression (Z13.31) Active confirmed Problem Opioid dependence in remission (773878315) Opioid dependence in remission (F11.21) Active confirmed Problem Elevated blood-pressure reading without diagnosis of hypertension (896263205) Elevated blood pressure reading (R03.0) Active confirmed Problem Tobacco use (247773871) Nicotine use (Z72.0) Active confirmed Vital Signs Heart Rate 92 /min 12/28/2024 Respiratory Rate 20 /min 12/28/2024 Blood pressure diastolic 77 mm Hg 12/28/2024 Height-cm 162.56 cm 12/28/2024 Weight-kg 81.65 kg 12/28/2024 Height 64.00 in 12/28/2024 Blood pressure systolic 132 mm Hg 12/28/2024 Weight 180 lbs 12/28/2024 BMI 30.89 kg/m2 12/28/2024 Encounters Encounter Location Date Provider Diagnosis [facility] [employer] [address] [place] [address] 01/20/2024 Bernice Fofana Major depressive disorder, recurrent, mild F33.0 ; Generalized anxiety disorder F41.1 ; Nicotine dependence, unspecified, uncomplicated F17.200 and Other intermediate manager (current) drug therapy Z79.899 [facility] [employer] [facility] [address] [place] [address] 04/23/2024 Bernice Fofana Major depressive disorder, recurrent, mild F33.0 ; Generalized anxiety disorder F41.1 ; Nicotine dependence, unspecified, uncomplicated F17.200 and Other [facility] (current) [facility] Z[facility].899 [email or web address] [address] [address] 07/23/2024 Bernice Thery Nicotine use Z72.0 ; Encounter for screening for depression Z13.31 ; Encounter for screening for cardiovascular disorders Z13.6 ; Dietary counseling and surveillance Z71.3 ; Major depressive disorder, recurrent, mild F33.0 ; Generalized anxiety disorder F41.1 ; Opioid dependence in remission F11.21 and Elevated blood pressure reading R03.0 [email or web address] [address] [address] 08/02/2024 Bernice Thery Nicotine use Z72.0 ; Encounter for screening for depression Z13.31 ; Encounter for screening for cardiovascular disorders Z13.6 ; Dietary counseling and surveillance Z71.3 ; Major depressive disorder, recurrent, mild F33.0 ; Generalized anxiety disorder F41.1 ; Opioid dependence in remission F11.21 and Elevated blood pressure reading R03.[address] [address] 09/02/2024 Bernice Thery Negative depression screening Z13.31 ; Major depressive disorder, recurrent, mild F33.0 ; Nicotine use Z72.0 ; Encounter for screening for depression Z13.31 ; Encounter for screening for cardiovascular disorders Z13.6 ; Dietary counseling and surveillance Z71.3 ; Generalized anxiety disorder F41.1 ; Opioid dependence in remission F11.21 and Elevated blood pressure reading R03.0 [email or web address] [address] [address] 09/30/2024 Bernice Thery Negative depression screening Z13.31 ; Opioid dependence in remission F11.21 ; Nicotine use Z72.0 ; Encounter for screening for cardiovascular disorders Z13.6 ; Dietary counseling and surveillance Z71.3 ; Major depressive disorder, recurrent, mild F33.0 ; Encounter for screening for depression Z13.31 ; Generalized anxiety disorder F41.1 and Elevated blood pressure reading R03.0 [email or web address] [address] [address] 10/29/2024 Bernice Thery Negative depression screening Z13.31 ; Opioid dependence in remission F11.21 ; Nicotine use Z72.0 ; Encounter for screening for cardiovascular disorders Z13.6 ; Dietary counseling and surveillance Z71.3 ; Major depressive disorder, recurrent, mild F33.0 ; Encounter for screening for depression Z13.31 ; Generalized anxiety disorder F41.1 and Elevated blood pressure reading R03.0 [facility] [employer] [facility] [address] [facility] [address] [place] [address] 11/26/2024 Bernice Fofana Negative depression screening Z13.31 ; Opioid dependence in remission F11.21 ; Nicotine use Z72.0 ; Encounter for screening for cardiovascular disorders Z13.6 ; Dietary counseling and surveillance Z71.3 ; Major depressive disorder, recurrent, mild F33.0 ; Encounter for screening for depression Z13.31 ; Generalized anxiety disorder F41.1 and Elevated blood pressure reading R03.0 [facility] [employer] [facility] [address] [address] 12/28/2024 Bernice Therfernandez Nicotine use Z72.0 ; Opioid dependence in remission F11.21 ; Major depressive disorder, recurrent, mild F33.0 ; Generalized anxiety disorder F41.1 and Elevated blood pressure reading R03.0 [facility] [employer] [place] [id number] [address] 07/28/2024 [email or web address] [place] [address] [address] 10/01/2024 Bernice Thery [place] [address] [address] 01/03/2025 Bernice Fofana Assessments Encounter Date Diagnosis (ICD Code) Assessment Notes Treatment Notes Treatment Clinical Notes Section Notes 04/23/2024 Major depressive disorder, recurrent, mild (ICD-10 - F33.0) Preventing Depression From Coming Back: Care Instructions material was published, Learning About How to Get Help During a Mental Health Crisis material was published, Learning About Depression Screening material was published, Learning About Depression material was published, Depression Treatment: Care Instructions material was published 1. Mild recurrent major depression -Prozac 20 mg daily (3 tabs daily) obtain recent labs PCP educated on all medications, benefits, side effects and risk, and educated on depression, anxiety, and mood d/o and educated on compliance of medications, appointment's, continue therapy discussion with patient about course of treatment and patient instructions. [place] prescription reviewed 2. Generalized anxiety disorder - Xanax 1 mg twice a daystable Discussed and educated pt regarding benzodiazepines are generally not intended for prolonged use and that use can cause tolerance, dependence, depression, and associated memory issues including dementias (this list is not exhaustive). Benzodiazepine use is generally not recommended concurrently with pain medications and/or other controlled substances due to increased risks of profound sedation, respiratory depression, coma, and even . They are not to be used with any alcohol, as this combination can also be lethal. Patient was provided caution 3. Nicotine dependence 4. Long-term drug therapy LABS REVIEWED AND SCANND INTO CHART b/p monitored and see PCP 01/20/2024 Major depressive disorder, recurrent, mild (ICD-10 - F33.0) Preventing Depression From Coming Back: Care Instructions material was published, Learning About How to Get Help During a Mental Health Crisis material was published, Learning About Depression Screening material was published, Learning About Depression material was published, Depression Treatment: Care Instructions material was published 1. Mild recurrent major depression -Prozac 20 mg daily (3 tabs daily) obtain recent labs PCP educated on all medications, benefits, side effects and risk, and educated on depression, anxiety, and mood d/o and educated on compliance of medications, appointment's, continue therapy discussion with patient about course of treatment and patient instructions. [place] prescription reviewed 2. Generalized anxiety disorder - Xanax 1 mg twice a daystable Discussed and educated pt regarding benzodiazepines are generally not intended for prolonged use and that use can cause tolerance, dependence, depression, and associated memory issues including dementias (this list is not exhaustive). Benzodiazepine use is generally not recommended concurrently with pain medications and/or other controlled substances due to increased risks of profound sedation, respiratory depression, coma, and even . They are not to be used with any alcohol, as this combination can also be lethal. Patient was provided caution 3. Nicotine dependence 4. Long-term drug therapy LABS REVIEWED AND SCANND INTO CHART b/p monitored and see PCP 07/23/2024 Nicotine use (ICD-10 - Z72.0) Quitting Tobacco: Care Instructions material was published, Stopping Smokeless Tobacco Use: Care Instructions material was published, Learning About Benefits of Quitting Smoking material was published, Deciding About Using Medicines To Quit Smoking material was published 1. Mild recurrent major depression -Prozac 20 mg daily (3 tabs daily) obtain recent labs PCP educated on all medications, benefits, side effects and risk, and educated on depression, anxiety, and mood d/o and educated on compliance of medications, appointment's, continue therapy discussion with patient about course of treatment and patient instructions. [place] prescription reviewed 2. Generalized anxiety disorder - Xanax 1 mg twice a day UDS showed suboxone and cannibis and Benzo discuss cannabis use and Benzo and patient reported will stop cannabis Patient was abusing opiated and has been taking suboxone off the street for the past 2-3 years. Discussed moving to sublocade to assure that she is not addicted to suboxone and to give steady medication. Patient agreeable. Instructed on plan of care -one week of suboxone, return to office and will start sublocade 300mg, then 100mg monthly. Discussed and educated pt regarding benzodiazepines are generally not intended for prolonged use and that use can cause tolerance, dependence, depression, and associated memory issues including dementias (this list is not exhaustive). Benzodiazepine use is generally not recommended concurrently with pain medications and/or other controlled substances due to increased risks of profound sedation, respiratory depression, coma, and even . They are not to be used with any alcohol, as this combination can also be lethal. Patient was provided caution 3. Nicotine dependence Do not smoke. Nicotine and other chemicals in cigarettes and cigars can cause lung damage. Ask your healthcare provider for information if you currently smoke and need help to quit. E-cigarettes or smokeless tobacco still contain nicotine. Talk to your healthcare provider before you use these products. education on decrease to stopping nicotine products and stop smoking hotline given Quit - Yes [place] Tobacco Quitline Call a Smoking Quitline The [employer]'s Smoking Quitline, (4-693-34G-QUIT) Smokefree.gov, which connects you with your State's Quitline, (0-280-SROGLXT) Veterans Smoking Quitline, (3-824-FLBVTCD) 4. Opioid use disorder Suboxone 8mg/2mg SL film daily for 1 week Discussed policy and procedures of suboxone, pill counts, UDS, controlled med contract. Discussed that she will need to come back in one week and will start Sublocade 300mg then in a month Sublocade 100mg per month. Patient educated on Sublocade, reduction of addiction to Suboxone risk and agreed Will give one week of Suboxone until prior auth is completed for Sublocade. Spoke with Dr. Omer about plan of care with suboxone and sublocade. 5. ELEVATED Blood pressure educated on healthy b/p 120/80 monitor b/p at home heart healthy diet and excise limit salt intake limit soda intake and caffiene increase water b/p monitored and see PCP 08/02/2024 Nicotine use (ICD-10 - Z72.0) Quitting Tobacco: Care Instructions material was published, Stopping Smokeless Tobacco Use: Care Instructions material was published, Learning About Benefits of Quitting Smoking material was published, Deciding About Using Medicines To Quit Smoking material was published, Deciding About Using Medicines To Quit Smoking material was published, Quitting Tobacco: Care Instructions material was published, Stopping Smokeless Tobacco Use: Care Instructions material was published, Learning About Benefits of Quitting Smoking material was published 1. major depression -Prozac 20 mg daily (3 tabs daily) obtain recent labs PCP educated on all medications, benefits, side effects and risk, and educated on depression, anxiety, and mood d/o and educated on compliance of medications, appointment's, continue therapy discussion with patient about course of treatment and patient instructions. [place] prescription reviewed 2. Generalized anxiety disorder - Xanax 1 mg twice a day- plan to taper off in near future UDS showed suboxone and Benzo- discuss Patient was abusing opiated and has been taking suboxone off the street for the past 2-3 years. Discussed moving to sublocade in near future and coverage with insurance to assure that she is not addicted to suboxone and to give steady medication. Patient agreeable. Discussed and educated pt regarding benzodiazepines are generally not intended for prolonged use and that use can cause tolerance, dependence, depression, and associated memory issues including dementias (this list is not exhaustive). Benzodiazepine use is generally not recommended concurrently with pain medications and/or other controlled substances due to increased risks of profound sedation, respiratory depression, coma, and even . They are not to be used with any alcohol, as this combination can also be lethal. Patient was provided caution 3. Nicotine dependence Do not smoke. Nicotine and other chemicals in cigarettes and cigars can cause lung damage. Ask your healthcare provider for information if you currently smoke and need help to quit. E-cigarettes or smokeless tobacco still contain nicotine. Talk to your healthcare provider before you use these products. education on decrease to stopping nicotine products and stop smoking hotline given -Quit - Yes [place] Tobacco Quitline Call a Smoking Quitline The National [employer]'s Smoking Quitline, (7-740-47H-QUIT) Smokefree.gov, which connects you with your State's Quitline, (1-877-XXWMYRZ) Veterans Smoking Quitline, (6-546-VPCVZED) 4. Opioid use disorder Suboxone 8mg/2mg SL film twice daily - monthly appointments and pill counts, and emties, and UDS discuss therapy options Discussed policy and procedures of suboxone, pill counts, UDS, controlled med contract. Discussed that she will need to come back in one week and will start Sublocade 300mg then in a month Sublocade 100mg per month. Patient educated on Sublocade, reduction of addiction to Suboxone risk and agreed Spoke with Dr. Omer about plan of care with suboxone and sublocade at last visit Subolcade [place] will continue Suboxone at this time and patient will like to try Suboclade in future. 5. ELEVATED Blood pressure educated on healthy b/p 120/80 monitor b/p at home heart healthy diet and excise limit salt intake limit soda intake and caffiene increase water b/p monitored and see PCP 09/02/2024 Major depressive disorder, recurrent, mild (ICD-10 - F33.0) Preventing Depression From Coming Back: Care Instructions material was published, Learning About How to Get Help During a Mental Health Crisis material was published, Learning About Depression Screening material was published, Learning About Depression material was published, Depression Treatment: Care Instructions material was published, Preventing Depression From Coming Back: Care Instructions material was published, Depression Treatment: Care Instructions material was published, Learning About How to Get Help During a Mental Health Crisis material was published, Preventing Depression From Coming Back: Care Instructions material was published, Learning About Depression Screening material was published 1. major depression -Prozac 20 mg daily (3 tabs daily) obtain labs PCP educated on all medications, benefits, side effects and risk, and educated on depression, anxiety, and mood d/o and educated on compliance of medications, appointment's, continue therapy discussion with patient about course of treatment and patient instructions. [place] prescription reviewed 2. Generalized anxiety disorder - Xanax 1 mg twice a day- plan to taper off in near future UDS showed suboxone and Benzo- discuss Patient was abusing opiated and has been taking suboxone off the street for the past 2-3 years. Discussed moving to sublocade in near future and coverage with insurance to assure that she is not addicted to suboxone and to give steady medication. Patient agreeable. Discussed and educated pt regarding benzodiazepines are generally not intended for prolonged use and that use can cause tolerance, dependence, depression, and associated memory issues including dementias (this list is not exhaustive). Benzodiazepine use is generally not recommended concurrently with pain medications and/or other controlled substances due to increased risks of profound sedation, respiratory depression, coma, and even . They are not to be used with any alcohol, as this combination can also be lethal. Patient was provided caution 3. Nicotine dependence Do not smoke. Nicotine and other chemicals in cigarettes and cigars can cause lung damage. Ask your healthcare provider for information if you currently smoke and need help to quit. E-cigarettes or smokeless tobacco still contain nicotine. Talk to your healthcare provider before you use these products. education on decrease to stopping nicotine products and stop smoking hotline given 404Quit - Yes [place] Tobacco Quitline Call a Smoking Quitline The [employer]'s Smoking Quitline, (2-947-21J-QUIT) Smokefree.gov, which connects you with your State's Quitline, (2-639-UVUFBQN) [facility] Smoking Quitline, (2-683-VNIAQZM) 4. Opioid use disorder Suboxone 8mg/2mg SL film twice daily - monthly appointments and pill counts, and emties, and UDS discuss therapy options Discussed policy and procedures of suboxone, pill counts, UDS, controlled med contract. Discussed that she will need to come back in one week and will start Sublocade 300mg then in a month Sublocade 100mg per month. Patient educated on Sublocade, reduction of addiction to Suboxone risk and agreed Spoke with Dr. Omer about plan of care with suboxone and sublocade at last [place] Subolcade [place] will continue Suboxone at this time and patient will like to try Suboclade in future. 5. ELEVATED Blood pressure- PATIENT will see PCP and monitor and document B/P at home discuss B/P and cardiovascular risk educated on healthy b/p 120/80 monitor b/p at home heart healthy diet and excise limit salt intake limit soda intake and caffiene increase water b/p monitored and see PCP 09/02/2024 Negative depression screening (ICD-10 - Z13.31) 1. major depression -Prozac 20 mg daily (3 tabs daily) obtain labs PCP educated on all medications, benefits, side effects and risk, and educated on depression, anxiety, and mood d/o and educated on compliance of medications, appointment's, continue therapy discussion with patient about course of treatment and patient instructions. [place] prescription reviewed 2. Generalized anxiety disorder - Xanax 1 mg twice a day- plan to taper off in near future UDS showed suboxone and Benzo- discuss Patient was abusing opiated and has been taking suboxone off the street for the past 2-3 years. Discussed moving to sublocade in near future and coverage with insurance to assure that she is not addicted to suboxone and to give steady medication. Patient agreeable. Discussed and educated pt regarding benzodiazepines are generally not intended for prolonged use and that use can cause tolerance, dependence, depression, and associated memory issues including dementias (this list is not exhaustive). Benzodiazepine use is generally not recommended concurrently with pain medications and/or other controlled substances due to increased risks of profound sedation, respiratory depression, coma, and even . They are not to be used with any alcohol, as this combination can also be lethal. Patient was provided caution 3. Nicotine dependence Do not smoke. Nicotine and other chemicals in cigarettes and cigars can cause lung damage. Ask your healthcare provider for information if you currently smoke and need help to quit. E-cigarettes or smokeless tobacco still contain nicotine. Talk to your healthcare provider before you use these products. education on decrease to stopping nicotine products and stop smoking hotline given -Quit - Yes [place] Tobacco Quitline Call a Smoking Quitline The [employer]'s Smoking Quitline, (0-140-44O-QUIT) Smokefree.gov, which connects you with your State's Quitline, (2-953-WMWDIRM) [facility] Smoking Quitline, (7-577-YNRYAUJ) 4. Opioid use disorder Suboxone 8mg/2mg SL film twice daily - monthly appointments and pill counts, and emties, and UDS discuss therapy options Discussed policy and procedures of suboxone, pill counts, UDS, controlled med contract. Discussed that she will need to come back in one week and will start Sublocade 300mg then in a month Sublocade 100mg per month. Patient educated on Sublocade, reduction of addiction to Suboxone risk and agreed Spoke with Dr. Omer about plan of care with suboxone and sublocade at last visit Subolcade [place] will continue Suboxone at this time and patient will like to try Suboclade in future. 5. ELEVATED Blood pressure- PATIENT will see PCP and monitor and document B/P at home discuss B/P and cardiovascular risk educated on healthy b/p 120/80 monitor b/p at home heart healthy diet and excise limit salt intake limit soda intake and caffiene increase water b/p monitored and see PCP 09/30/2024 Opioid dependence in remission (ICD-10 - F11.21) Learning About Opioid Use Disorder material was published, Learning About Pain Control When You Have a History of Opioid Use Disorder material was published, Opioid Overdose: Care Instructions material was published, Learning About Substance Use Disorder material was published, Learning About Pain Control When You Have a History of Opioid Use Disorder material was published, Learning About Opioid Use Disorder material was published, Substance Use Disorder: Care Instructions material was published, Opioid Withdrawal: Care Instructions material was published, Learning About Medication-Assi sted Treatment for Opioid Use Disorder material was published 1. major depression -Prozac 20 mg daily (3 tabs daily) no refill needed today obtain labs PCP educated on all medications, benefits, side effects and risk, and educated on depression, anxiety, and mood d/o and educated on compliance of medications, appointment's, continue therapy discussion with patient about course of treatment and patient instructions. [place] prescription reviewed 2. Generalized anxiety disorder - Xanax 1 mg twice a day- plan to taper off in near future Patient was abusing opiated and has been taking suboxone off the street for the past 2-3 years. Discussed moving to sublocade in near future and coverage with insurance to assure that she is not addicted to suboxone and to give steady medication. Patient agreeable. Discussed and educated pt regarding benzodiazepines are generally not intended for prolonged use and that use can cause tolerance, dependence, depression, and associated memory issues including dementias (this list is not exhaustive). Benzodiazepine use is generally not recommended concurrently with pain medications and/or other controlled substances due to increased risks of profound sedation, respiratory depression, coma, and even . They are not to be used with any alcohol, as this combination can also be lethal. Patient was provided caution 3. Nicotine dependence Do not smoke. Nicotine and other chemicals in cigarettes and cigars can cause lung damage. Ask your healthcare provider for information if you currently smoke and need help to quit. E-cigarettes or smokeless tobacco still contain nicotine. Talk to your healthcare provider before you use these products. education on decrease to stopping nicotine products and stop smoking hotline given 193-Quit - Yes [place] Tobacco Quitline Call a Smoking Quitline The [employer] Smoking Quitline, (2-814-32U-QUIT) Smokefree.gov, which connects you with your State's Quitline, (2-002-WVANVMR) [facility] Smoking Quitline, (0-769-HSKCXGE) 4. Opioid use disorder Suboxone 8mg/2mg SL film twice daily - monthly appointments and pill counts, and emties, and UDS discuss therapy options Discussed policy and procedures of suboxone, pill counts, UDS, controlled med contract. Discussed that she will need to come back in one week and will start Sublocade 300mg then in a month Sublocade 100mg per month. Patient educated on Sublocade, reduction of addiction to Suboxone risk and agreed Spoke with Dr. Omer about plan of care with suboxone and sublocade at last visit Subolcade [place] will continue Suboxone at this time 5. ELEVATED Blood pressure- PATIENT will see PCP and monitor and document B/P at home discuss B/P and cardiovascular risk educated on healthy b/p 120/80 monitor b/p at home heart healthy diet and excise limit salt intake limit soda intake and caffiene increase water b/p monitored and see PCP 09/30/2024 Negative depression screening (ICD-10 - Z13.31) 1. major depression -Prozac 20 mg daily (3 tabs daily) no refill needed today obtain labs PCP educated on all medications, benefits, side effects and risk, and educated on depression, anxiety, and mood d/o and educated on compliance of medications, appointment's, continue therapy discussion with patient about course of treatment and patient instructions. [place] prescription reviewed 2. Generalized anxiety disorder - Xanax 1 mg twice a day- plan to taper off in near future Patient was abusing opiated and has been taking suboxone off the street for the past 2-3 years. Discussed moving to sublocade in near future and coverage with insurance to assure that she is not addicted to suboxone and to give steady medication. Patient agreeable. Discussed and educated pt regarding benzodiazepines are generally not intended for prolonged use and that use can cause tolerance, dependence, depression, and associated memory issues including dementias (this list is not exhaustive). Benzodiazepine use is generally not recommended concurrently with pain medications and/or other controlled substances due to increased risks of profound sedation, respiratory depression, coma, and even . They are not to be used with any alcohol, as this combination can also be lethal. Patient was provided caution 3. Nicotine dependence Do not smoke. Nicotine and other chemicals in cigarettes and cigars can cause lung damage. Ask your healthcare provider for information if you currently smoke and need help to quit. E-cigarettes or smokeless tobacco still contain nicotine. Talk to your healthcare provider before you use these products. education on decrease to stopping nicotine products and stop smoking hotline given 27-Quit - Yes [place] Tobacco Quitline Call a Smoking Quitline The [employer] Smoking Quitline, (5-552-84W-QUIT) Smokefree.gov, which connects you with your State's Quitline, (4-529-RULZAVR) [facility] Smoking Quitline, (1-606-AIQTBXG) 4. Opioid use disorder Suboxone 8mg/2mg SL film twice daily - monthly appointments and pill counts, and emties, and UDS discuss therapy options Discussed policy and procedures of suboxone, pill counts, UDS, controlled med contract. Discussed that she will need to come back in one week and will start Sublocade 300mg then in a month Sublocade 100mg per month. Patient educated on Sublocade, reduction of addiction to Suboxone risk and agreed Spoke with Dr. Omer about plan of care with suboxone and sublocade at last visit Subolcade [place] will continue Suboxone at this time 5. ELEVATED Blood pressure- PATIENT will see PCP and monitor and document B/P at home discuss B/P and cardiovascular risk educated on healthy b/p 120/80 monitor b/p at home heart healthy diet and excise limit salt intake limit soda intake and caffiene increase water b/p monitored and see PCP 10/29/2024 Negative depression screening (ICD-10 - Z13.31) Learning About Depression Screening material was published 1. major depression -Prozac 20 mg daily (3 tabs daily) obtain labs PCP educated on all medications, benefits, side effects and risk, and educated on depression, anxiety, and mood d/o and educated on compliance of medications, appointment's, continue therapy discussion with patient about course of treatment and patient instructions. [place] prescription reviewed 2. Generalized anxiety disorder - GDR plans discuss and will do slow tiration over each visit with plan to stop Xanax decrease Xanax 1 mg in evening and Xanax 0.5 mg in am- plan to taper off in near future discuss and educated on adding Buspar 5 mg twice a day for anxiety and panic discuss and educated on adding Vistaril 10 mg twice a day for anxiety and panic Patient was abusing opiated and has been taking suboxone off the street for the past 2-3 years. Discussed moving to sublocade in near future and coverage with insurance to assure that she is not addicted to suboxone and to give steady medication. Patient agreeable. Discussed and educated pt regarding benzodiazepines are generally not intended for prolonged use and that use can cause tolerance, dependence, depression, and associated memory issues including dementias (this list is not exhaustive). Benzodiazepine use is generally not recommended concurrently with pain medications and/or other controlled substances due to increased risks of profound sedation, respiratory depression, coma, and even . They are not to be used with any alcohol, as this combination can also be lethal. Patient was provided caution 3. Nicotine dependence Do not smoke. Nicotine and other chemicals in cigarettes and cigars can cause lung damage. Ask your healthcare provider for information if you currently smoke and need help to quit. E-cigarettes or smokeless tobacco still contain nicotine. Talk to your healthcare provider before you use these products. education on decrease to stopping nicotine products and stop smoking hotline given -Quit - Yes [place] Tobacco Quitline Call a Smoking Quitline The [employer]'s Smoking Quitline, (6-594-65Z-QUIT) Smokefree.gov, which connects you with your State's Quitline, (7-065-GNXXQGY) [facility] Smoking Quitline, (0-969-GRTFOCZ) 4. Opioid use disorder Suboxone 8mg/2mg SL film twice daily - monthly appointments and pill counts, and emties, and UDS discuss therapy options Discussed policy and procedures of suboxone, pill counts, UDS, controlled med contract. Discussed that she will need to come back in one week and will start Sublocade 300mg then in a month Sublocade 100mg per month. Patient educated on Sublocade, reduction of addiction to Suboxone risk and agreed Subolcade [place] will continue Suboxone at this time 5. ELEVATED Blood pressure- PATIENT will see PCP appointment 12/13 to discuss HTN and medication options monitor and document B/P at home discuss B/P and cardiovascular risk educated on healthy b/p 120/80 monitor b/p at home heart healthy diet and excise limit salt intake limit soda intake and caffiene increase water b/p monitored and see PCP 11/26/2024 Negative depression screening (ICD-10 - Z13.31) Learning About Depression Screening material was published 1. major depression -Prozac 20 mg daily (3 tabs daily) obtain labs PCP educated on all medications, benefits, side effects and risk, and educated on depression, anxiety, and mood d/o and educated on compliance of medications, appointment's, continue therapy discussion with patient about course of treatment and patient instructions. [place] prescription reviewed 2. Generalized anxiety disorder - GDR plans discuss and will do slow tiration over each visit with plan to stop Xanax decrease Xanax 0.5 mg in evening and Xanax 0.5 mg in am- plan to taper off in near future d/c Buspar 5 mg twice a day for anxiety and panic not taking discuss and educated on increase Vistaril 10 mg three times a day for anxiety and panic Patient was abusing opiated and has been taking suboxone off the street for the past 2-3 years. Discussed moving to sublocade in near future and coverage with insurance to assure that she is not addicted to suboxone and to give steady medication. Patient agreeable. Discussed and educated pt regarding benzodiazepines are generally not intended for prolonged use and that use can cause tolerance, dependence, depression, and associated memory issues including dementias (this list is not exhaustive). Benzodiazepine use is generally not recommended concurrently with pain medications and/or other controlled substances due to increased risks of profound sedation, respiratory depression, coma, and even . They are not to be used with any alcohol, as this combination can also be lethal. Patient was provided caution 3. Nicotine dependence Do not smoke. Nicotine and other chemicals in cigarettes and cigars can cause lung damage. Ask your healthcare provider for information if you currently smoke and need help to quit. E-cigarettes or smokeless tobacco still contain nicotine. Talk to your healthcare provider before you use these products. education on decrease to stopping nicotine products and stop smoking hotline given 011-Quit - Yes [place] Tobacco Quitline Call a Smoking Quitline The [employer]'s Smoking Quitline, (0-684-50I-QUIT) Smokefree.gov, which connects you with your State's Quitline, (2-537-CJFOMPY) [facility] Smoking Quitline, (8-180-FTRAUJU) 4. Opioid use disorder Suboxone 8mg/2mg SL film twice daily - monthly appointments and pill counts, and emties, and UDS discuss therapy options Discussed policy and procedures of suboxone, pill counts, UDS, controlled med contract. Discussed that she will need to come back in one week and will start Sublocade 300mg then in a month Sublocade 100mg per month. Patient educated on Sublocade, reduction of addiction to Suboxone risk and agreed Subolcade [place] insurance will continue Suboxone at this time 5. ELEVATED Blood pressure- PATIENT will see PCP appointment 01/13 to discuss HTN and medication options monitor and document B/P at home discuss B/P and cardiovascular risk educated on healthy b/p 120/80 monitor b/p at home heart healthy diet and excise limit salt intake limit soda intake and caffiene increase water b/p monitored and see PCP 12/28/2024 Nicotine use (ICD-10 - Z72.0) Quitting Tobacco: Care Instructions material was published, Stopping Smokeless Tobacco Use: Care Instructions material was published, Learning About Benefits of Quitting Smoking material was published, Deciding About Using Medicines To Quit Smoking material was published, Deciding About Using Medicines To Quit Smoking material was published, Quitting Tobacco: Care Instructions material was published, Stopping Smokeless Tobacco Use: Care Instructions material was published, Learning About Benefits of Quitting Smoking material was published, Deciding About Using Medicines To Quit Smoking material was published, Learning About Benefits of Quitting Smoking material was published, Stopping Smokeless Tobacco Use: Care Instructions material was published, Quitting Tobacco: Care Instructions material was published 1. 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 [place] prescription reviewed 2. Generalized anxiety disorder - GDR plans discuss and will do slow tiration with plan to stop Xanax Xanax 0.5 mg in evening and Xanax 0.5 mg in am- plan to continue at this dose for next 3 months plan to taper off in near future discuss and educated on increase Vistaril 25 mg three times a day for anxiety and panic pateint reported 10 mg dose taking 3 tabs at a time recently Patient was abusing opiated and has been taking suboxone off the street for the past 2-3 years. Discussed moving to sublocade in near future and coverage with insurance to assure that she is not addicted to suboxone and to give steady medication. Patient agreeable. Discussed and educated pt regarding benzodiazepines are generally not intended for prolonged use and that use can cause tolerance, dependence, depression, and associated memory issues including dementias (this list is not exhaustive). Benzodiazepine use is generally not recommended concurrently with pain medications and/or other controlled substances due to increased risks of profound sedation, respiratory depression, coma, and even . They are not to be used with any alcohol, as this combination can also be lethal. Patient was provided caution 3. Nicotine dependence Do not smoke. Nicotine and other chemicals in cigarettes and cigars can cause lung damage. Ask your healthcare provider for information if you currently smoke and need help to quit. E-cigarettes or smokeless tobacco still contain nicotine. Talk to your healthcare provider before you use these products. education on decrease to stopping nicotine products and stop smoking hotline given -Quit - Yes [place] Tobacco Quitline Call a Smoking Quitline The [employer]'s Smoking Quitline, (4-653-04D-QUIT) Smokefree.gov, which connects you with your State's Quitline, (2-160-OPQVJEO) [facility] Smoking Quitline, (0-785-BSQYWKO) 4. Opioid use disorder Suboxone 8mg/2mg SL film twice daily - monthly appointments and pill counts, and emties, and UDS discuss therapy options Discussed policy and procedures of suboxone, pill counts, UDS, controlled med contract. Discussed that she will need to come back in one week and will start Sublocade 300mg then in a month Sublocade 100mg per month. Patient educated on Sublocade, reduction of addiction to Suboxone risk and agreed Subolcade [place] insurance will continue Suboxone at this time 5. ELEVATED Blood pressure- PATIENT will see PCP appointment 01/13 to discuss HTN and medication options monitor and document B/P at home discuss B/P and cardiovascular risk educated on healthy b/p 120/80 monitor b/p at home heart healthy diet and excise limit salt intake limit soda intake and caffiene increase water b/p monitored and see PCP 12/28/2024 Major depressive disorder, recurrent, mild (ICD-10 - F33.0) Preventing Depression From Coming Back: Care Instructions material was published, Learning About How to Get Help During a Mental Health Crisis material was published, Learning About Depression Screening material was published, Learning About Depression material was published, Depression Treatment: Care Instructions material was published, Preventing Depression From Coming Back: Care Instructions material was published, Depression Treatment: Care Instructions material was published, Learning About How to Get Help During a Mental Health Crisis material was published, Preventing Depression From Coming Back: Care Instructions material was published, Learning About Depression Screening material was published, Preventing Depression From Coming Back: Care Instructions material was published, Depression Treatment: Care Instructions material was published, Learning About How to Get Help During a Mental Health Crisis material was published 1. 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 [place] prescription reviewed 2. Generalized anxiety disorder - GDR plans discuss and will do slow tiration with plan to stop Xanax Xanax 0.5 mg in evening and Xanax 0.5 mg in am- plan to continue at this dose for next 3 months plan to taper off in near future discuss and educated on increase Vistaril 25 mg three times a day for anxiety and panic pateint reported 10 mg dose taking 3 tabs at a time recently Patient was abusing opiated and has been taking suboxone off the street for the past 2-3 years. Discussed moving to sublocade in near future and coverage with insurance to assure that she is not addicted to suboxone and to give steady medication. Patient agreeable. Discussed and educated pt regarding benzodiazepines are generally not intended for prolonged use and that use can cause tolerance, dependence, depression, and associated memory issues including dementias (this list is not exhaustive). Benzodiazepine use is generally not recommended concurrently with pain medications and/or other controlled substances due to increased risks of profound sedation, respiratory depression, coma, and even . They are not to be used with any alcohol, as this combination can also be lethal. Patient was provided caution 3. Nicotine dependence Do not smoke. Nicotine and other chemicals in cigarettes and cigars can cause lung damage. Ask your healthcare provider for information if you currently smoke and need help to quit. E-cigarettes or smokeless tobacco still contain nicotine. Talk to your healthcare provider before you use these products. education on decrease to stopping nicotine products and stop smoking hotline given -Quit - Yes [place] Tobacco Quitline Call a Smoking Quitline The [employer]'s Smoking Quitline, (6-218-18R-QUIT) Smokefree.gov, which connects you with your State's Quitline, (8-313-BNUDUCF) Veterans Smoking Quitline, (2-852-LJYWAMV) 4. Opioid use disorder Suboxone 8mg/2mg SL film twice daily - monthly appointments and pill counts, and emties, and UDS discuss therapy options Discussed policy and procedures of suboxone, pill counts, UDS, controlled med contract. Discussed that she will need to come back in one week and will start Sublocade 300mg then in a month Sublocade 100mg per month. Patient educated on Sublocade, reduction of addiction to Suboxone risk and agreed Subolcade [place] on insurance will continue Suboxone at this time 5. ELEVATED Blood pressure- PATIENT will see PCP appointment 01/13 to discuss HTN and medication options monitor and document B/P at home discuss B/P and cardiovascular risk educated on healthy b/p 120/80 monitor b/p at home heart healthy diet and excise limit salt intake limit soda intake and caffiene increase water b/p monitored and see PCP 12/28/2024 Opioid dependence in remission (ICD-10 - F11.21) Learning About Opioid Use Disorder material was published, Learning About Pain Control When You Have a History of Opioid Use Disorder material was published, Opioid Overdose: Care Instructions material was published, Learning About Substance Use Disorder material was published, Learning About Pain Control When You Have a History of Opioid Use Disorder material was published, Learning About Opioid Use Disorder material was published, Substance Use Disorder: Care Instructions material was published, Opioid Withdrawal: Care Instructions material was published, Learning About Medication-Assi sted Treatment for Opioid Use Disorder material was published, Learning About Opioid Use Disorder material was published, Learning About Pain Control When You Have a History of Opioid Use Disorder material was published, Substance Use Disorder: Care Instructions material was published, Opioid Overdose: Care Instructions material was published, Opioid Withdrawal: Care Instructions material was published 1. 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 [place] prescription reviewed 2. Generalized anxiety disorder - GDR plans discuss and will do slow tiration with plan to stop Xanax Xanax 0.5 mg in evening and Xanax 0.5 mg in am- plan to continue at this dose for next 3 months plan to taper off in near future discuss and educated on increase Vistaril 25 mg three times a day for anxiety and panic pateint reported 10 mg dose taking 3 tabs at a time recently Patient was abusing opiated and has been taking suboxone off the street for the past 2-3 years. Discussed moving to sublocade in near future and coverage with insurance to assure that she is not addicted to suboxone and to give steady medication. Patient agreeable. Discussed and educated pt regarding benzodiazepines are generally not intended for prolonged use and that use can cause tolerance, dependence, depression, and associated memory issues including dementias (this list is not exhaustive). Benzodiazepine use is generally not recommended concurrently with pain medications and/or other controlled substances due to increased risks of profound sedation, respiratory depression, coma, and even . They are not to be used with any alcohol, as this combination can also be lethal. Patient was provided caution 3. Nicotine dependence Do not smoke. Nicotine and other chemicals in cigarettes and cigars can cause lung damage. Ask your healthcare provider for information if you currently smoke and need help to quit. E-cigarettes or smokeless tobacco still contain nicotine. Talk to your healthcare provider before you use these products. education on decrease to stopping nicotine products and stop smoking hotline given -Quit - Yes [place] Tobacco Quitline Call a Smoking Quitline The [employer]'s Smoking Quitline, (5-220-98K-QUIT) Smokefree.gov, which connects you with your State's Quitline, (1-822-VMOSKJZ) Veterans Smoking Quitline, (3-906-QZICVUY) 4. Opioid use disorder Suboxone 8mg/2mg SL film twice daily - monthly appointments and pill counts, and emties, and UDS discuss therapy options Discussed policy and procedures of suboxone, pill counts, UDS, controlled med contract. Discussed that she will need to come back in one week and will start Sublocade 300mg then in a month Sublocade 100mg per month. Patient educated on Sublocade, reduction of addiction to Suboxone risk and agreed Subolcade [place] insurance will continue Suboxone at this time 5. ELEVATED Blood pressure- PATIENT will see PCP appointment 01/13 to discuss HTN and medication options monitor and document B/P at home discuss B/P and cardiovascular risk educated on healthy b/p 120/80 monitor b/p at home heart healthy diet and excise limit salt intake limit soda intake and caffiene increase water b/p monitored and see PCP 09/30/2024 Nicotine use (ICD-10 - Z72.0) Quitting Tobacco: Care Instructions material was published, Stopping Smokeless Tobacco Use: Care Instructions material was published, Learning About Benefits of Quitting Smoking material was published, Deciding About Using Medicines To Quit Smoking material was published, Deciding About Using Medicines To Quit Smoking material was published, Quitting Tobacco: Care Instructions material was published, Stopping Smokeless Tobacco Use: Care Instructions material was published, Learning About Benefits of Quitting Smoking material was published 1. major depression -Prozac 20 mg daily (3 tabs daily) no refill needed today obtain labs PCP educated on all medications, benefits, side effects and risk, and educated on depression, anxiety, and mood d/o and educated on compliance of medications, appointment's, continue therapy discussion with patient about course of treatment and patient instructions. [place] prescription reviewed 2. Generalized anxiety disorder - Xanax 1 mg twice a day- plan to taper off in near future Patient was abusing opiated and has been taking suboxone off the street for the past 2-3 years. Discussed moving to sublocade in near future and coverage with insurance to assure that she is not addicted to suboxone and to give steady medication. Patient agreeable. Discussed and educated pt regarding benzodiazepines are generally not intended for prolonged use and that use can cause tolerance, dependence, depression, and associated memory issues including dementias (this list is not exhaustive). Benzodiazepine use is generally not recommended concurrently with pain medications and/or other controlled substances due to increased risks of profound sedation, respiratory depression, coma, and even . They are not to be used with any alcohol, as this combination can also be lethal. Patient was provided caution 3. Nicotine dependence Do not smoke. Nicotine and other chemicals in cigarettes and cigars can cause lung damage. Ask your healthcare provider for information if you currently smoke and need help to quit. E-cigarettes or smokeless tobacco still contain nicotine. Talk to your healthcare provider before you use these products. education on decrease to stopping nicotine products and stop smoking hotline given Quit - Yes [place] Tobacco Quitline Call a Smoking Quitline The [employer]'s Smoking Quitline, (9-253-51T-QUIT) Smokefree.gov, which connects you with your State's Quitline, (5-763-ONJCGHZ) [facility] Smoking Quitline, (6-908-RPQYOVQ) 4. Opioid use disorder Suboxone 8mg/2mg SL film twice daily - monthly appointments and pill counts, and emties, and UDS discuss therapy options Discussed policy and procedures of suboxone, pill counts, UDS, controlled med contract. Discussed that she will need to come back in one week and will start Sublocade 300mg then in a month Sublocade 100mg per month. Patient educated on Sublocade, reduction of addiction to Suboxone risk and agreed Spoke with Dr. Omer about plan of care with suboxone and sublocade at last visit Subolcade [place] insurance will continue Suboxone at this time 5. ELEVATED Blood pressure- PATIENT will see PCP and monitor and document B/P at home discuss B/P and cardiovascular risk educated on healthy b/p 120/80 monitor b/p at home heart healthy diet and excise limit salt intake limit soda intake and caffiene increase water b/p monitored and see PCP 11/26/2024 Opioid dependence in remission (ICD-10 - F11.21) Learning About Opioid Use Disorder material was published, Learning About Pain Control When You Have a History of Opioid Use Disorder material was published, Opioid Overdose: Care Instructions material was published, Learning About Substance Use Disorder material was published, Learning About Pain Control When You Have a History of Opioid Use Disorder material was published, Learning About Opioid Use Disorder material was published, Substance Use Disorder: Care Instructions material was published, Opioid Withdrawal: Care Instructions material was published, Learning About Medication-Assi marlond Treatment for Opioid Use Disorder material was published, Learning About Opioid Use Disorder material was published, Learning About Pain Control When You Have a History of Opioid Use Disorder material was published, Substance Use Disorder: Care Instructions material was published, Opioid Overdose: Care Instructions material was published, Opioid Withdrawal: Care Instructions material was published 1. major depression -Prozac 20 mg daily (3 tabs daily) obtain labs PCP educated on all medications, benefits, side effects and risk, and educated on depression, anxiety, and mood d/o and educated on compliance of medications, appointment's, continue therapy discussion with patient about course of treatment and patient instructions. [place] prescription reviewed 2. Generalized anxiety disorder - GDR plans discuss and will do slow tiration over each visit with plan to stop Xanax decrease Xanax 0.5 mg in evening and Xanax 0.5 mg in am- plan to taper off in near future d/c Buspar 5 mg twice a day for anxiety and panic not taking discuss and educated on increase Vistaril 10 mg three times a day for anxiety and panic Patient was abusing opiated and has been taking suboxone off the street for the past 2-3 years. Discussed moving to sublocade in near future and coverage with insurance to assure that she is not addicted to suboxone and to give steady medication. Patient agreeable. Discussed and educated pt regarding benzodiazepines are generally not intended for prolonged use and that use can cause tolerance, dependence, depression, and associated memory issues including dementias (this list is not exhaustive). Benzodiazepine use is generally not recommended concurrently with pain medications and/or other controlled substances due to increased risks of profound sedation, respiratory depression, coma, and even . They are not to be used with any alcohol, as this combination can also be lethal. Patient was provided caution 3. Nicotine dependence Do not smoke. Nicotine and other chemicals in cigarettes and cigars can cause lung damage. Ask your healthcare provider for information if you currently smoke and need help to quit. E-cigarettes or smokeless tobacco still contain nicotine. Talk to your healthcare provider before you use these products. education on decrease to stopping nicotine products and stop smoking hotline given -Quit - Yes [place] Tobacco Quitline Call a Smoking Quitline The [employer] Smoking Quitline, (3-616-66M-QUIT) Smokefree.gov, which connects you with your State's Quitline, (0-203-IASXHDQ) Veterans Smoking Quitline, (5-294-SMLEAKP) 4. Opioid use disorder Suboxone 8mg/2mg SL film twice daily - monthly appointments and pill counts, and emties, and UDS discuss therapy options Discussed policy and procedures of suboxone, pill counts, UDS, controlled med contract. Discussed that she will need to come back in one week and will start Sublocade 300mg then in a month Sublocade 100mg per month. Patient educated on Sublocade, reduction of addiction to Suboxone risk and agreed Subolcade [place] will continue Suboxone at this time 5. ELEVATED Blood pressure- PATIENT will see PCP appointment 01/13 to discuss HTN and medication options monitor and document B/P at home discuss B/P and cardiovascular risk educated on healthy b/p 120/80 monitor b/p at home heart healthy diet and excise limit salt intake limit soda intake and caffiene increase water b/p monitored and see PCP 10/29/2024 Opioid dependence in remission (ICD-10 - F11.21) Learning About Opioid Use Disorder material was published, Learning About Pain Control When You Have a History of Opioid Use Disorder material was published, Opioid Overdose: Care Instructions material was published, Learning About Substance Use Disorder material was published, Learning About Pain Control When You Have a History of Opioid Use Disorder material was published, Learning About Opioid Use Disorder material was published, Substance Use Disorder: Care Instructions material was published, Opioid Withdrawal: Care Instructions material was published, Learning About Medication-Assi sted Treatment for Opioid Use Disorder material was published, Learning About Opioid Use Disorder material was published, Learning About Pain Control When You Have a History of Opioid Use Disorder material was published, Substance Use Disorder: Care Instructions material was published, Opioid Overdose: Care Instructions material was published, Opioid Withdrawal: Care Instructions material was published 1. major depression -Prozac 20 mg daily (3 tabs daily) obtain labs PCP educated on all medications, benefits, side effects and risk, and educated on depression, anxiety, and mood d/o and educated on compliance of medications, appointment's, continue therapy discussion with patient about course of treatment and patient instructions. [place] prescription reviewed 2. Generalized anxiety disorder - GDR plans discuss and will do slow tiration over each visit with plan to stop Xanax decrease Xanax 1 mg in evening and Xanax 0.5 mg in am- plan to taper off in near future discuss and educated on adding Buspar 5 mg twice a day for anxiety and panic discuss and educated on adding Vistaril 10 mg twice a day for anxiety and panic Patient was abusing opiated and has been taking suboxone off the street for the past 2-3 years. Discussed moving to sublocade in near future and coverage with insurance to assure that she is not addicted to suboxone and to give steady medication. Patient agreeable. Discussed and educated pt regarding benzodiazepines are generally not intended for prolonged use and that use can cause tolerance, dependence, depression, and associated memory issues including dementias (this list is not exhaustive). Benzodiazepine use is generally not recommended concurrently with pain medications and/or other controlled substances due to increased risks of profound sedation, respiratory depression, coma, and even . They are not to be used with any alcohol, as this combination can also be lethal. Patient was provided caution 3. Nicotine dependence Do not smoke. Nicotine and other chemicals in cigarettes and cigars can cause lung damage. Ask your healthcare provider for information if you currently smoke and need help to quit. E-cigarettes or smokeless tobacco still contain nicotine. Talk to your healthcare provider before you use these products. education on decrease to stopping nicotine products and stop smoking hotline given 885-Quit - Yes [place] Tobacco Quitline Call a Smoking Quitline The [employer]'s Smoking Quitline, (5-481-80R-QUIT) Smokefree.gov, which connects you with your State's Quitline, (6-920-JKNBETZ) [facility] Smoking Quitline, (6-268-NUJWXZA) 4. Opioid use disorder Suboxone 8mg/2mg SL film twice daily - monthly appointments and pill counts, and emties, and UDS discuss therapy options Discussed policy and procedures of suboxone, pill counts, UDS, controlled med contract. Discussed that she will need to come back in one week and will start Sublocade 300mg then in a month Sublocade 100mg per month. Patient educated on Sublocade, reduction of addiction to Suboxone risk and agreed Subolcade [place] on insurance will continue Suboxone at this time 5. ELEVATED Blood pressure- PATIENT will see PCP appointment 12/13 to discuss HTN and medication options monitor and document B/P at home discuss B/P and cardiovascular risk educated on healthy b/p 120/80 monitor b/p at home heart healthy diet and excise limit salt intake limit soda intake and caffiene increase water b/p monitored and see PCP 09/02/2024 Nicotine use (ICD-10 - Z72.0) Quitting Tobacco: Care Instructions material was published, Stopping Smokeless Tobacco Use: Care Instructions material was published, Learning About Benefits of Quitting Smoking material was published, Deciding About Using Medicines To Quit Smoking material was published, Deciding About Using Medicines To Quit Smoking material was published, Quitting Tobacco: Care Instructions material was published, Stopping Smokeless Tobacco Use: Care Instructions material was published, Learning About Benefits of Quitting Smoking material was published 1. major depression -Prozac 20 mg daily (3 tabs daily) obtain labs PCP educated on all medications, benefits, side effects and risk, and educated on depression, anxiety, and mood d/o and educated on compliance of medications, appointment's, continue therapy discussion with patient about course of treatment and patient instructions. [place] prescription reviewed 2. Generalized anxiety disorder - Xanax 1 mg twice a day- plan to taper off in near future UDS showed suboxone and Benzo- discuss Patient was abusing opiated and has been taking suboxone off the street for the past 2-3 years. Discussed moving to sublocade in near future and coverage with insurance to assure that she is not addicted to suboxone and to give steady medication. Patient agreeable. Discussed and educated pt regarding benzodiazepines are generally not intended for prolonged use and that use can cause tolerance, dependence, depression, and associated memory issues including dementias (this list is not exhaustive). Benzodiazepine use is generally not recommended concurrently with pain medications and/or other controlled substances due to increased risks of profound sedation, respiratory depression, coma, and even . They are not to be used with any alcohol, as this combination can also be lethal. Patient was provided caution 3. Nicotine dependence Do not smoke. Nicotine and other chemicals in cigarettes and cigars can cause lung damage. Ask your healthcare provider for information if you currently smoke and need help to quit. E-cigarettes or smokeless tobacco still contain nicotine. Talk to your healthcare provider before you use these products. education on decrease to stopping nicotine products and stop smoking hotline given Quit - Yes [place] Tobacco Quitline Call a Smoking Quitline The [employer] Smoking Quitline, (3-505-23S-QUIT) Smokefree.gov, which connects you with your State's Quitline, (3-921-ZMOANKP) [facility] Smoking Quitline, (2-436-FONUYEO) 4. Opioid use disorder Suboxone 8mg/2mg SL film twice daily - monthly appointments and pill counts, and emties, and UDS discuss therapy options Discussed policy and procedures of suboxone, pill counts, UDS, controlled med contract. Discussed that she will need to come back in one week and will start Sublocade 300mg then in a month Sublocade 100mg per month. Patient educated on Sublocade, reduction of addiction to Suboxone risk and agreed Spoke with Dr. Omer about plan of care with suboxone and sublocade at last visit Subolcade [place] will continue Suboxone at this time and patient will like to try Suboclade in future. 5. ELEVATED Blood pressure- PATIENT will see PCP and monitor and document B/P at home discuss B/P and cardiovascular risk educated on healthy b/p 120/80 monitor b/p at home heart healthy diet and excise limit salt intake limit soda intake and caffiene increase water b/p monitored and see PCP 08/02/2024 Encounter for screening for depression (ICD-10 - Z13.31) Learning About Depression Screening material was published 1. major depression -Prozac 20 mg daily (3 tabs daily) obtain recent labs PCP educated on all medications, benefits, side effects and risk, and educated on depression, anxiety, and mood d/o and educated on compliance of medications, appointment's, continue therapy discussion with patient about course of treatment and patient instructions. [place] prescription reviewed 2. Generalized anxiety disorder - Xanax 1 mg twice a day- plan to taper off in near future UDS showed suboxone and Benzo- discuss Patient was abusing opiated and has been taking suboxone off the street for the past 2-3 years. Discussed moving to sublocade in near future and coverage with insurance to assure that she is not addicted to suboxone and to give steady medication. Patient agreeable. Discussed and educated pt regarding benzodiazepines are generally not intended for prolonged use and that use can cause tolerance, dependence, depression, and associated memory issues including dementias (this list is not exhaustive). Benzodiazepine use is generally not recommended concurrently with pain medications and/or other controlled substances due to increased risks of profound sedation, respiratory depression, coma, and even . They are not to be used with any alcohol, as this combination can also be lethal. Patient was provided caution 3. Nicotine dependence Do not smoke. Nicotine and other chemicals in cigarettes and cigars can cause lung damage. Ask your healthcare provider for information if you currently smoke and need help to quit. E-cigarettes or smokeless tobacco still contain nicotine. Talk to your healthcare provider before you use these products. education on decrease to stopping nicotine products and stop smoking hotline given 411-Quit - Yes [place] Tobacco Quitline Call a Smoking Quitline The [employer]'s Smoking Quitline, (6-566-34Y-QUIT) Smokefree.gov, which connects you with your State's Quitline, (8-345-BFZDFSJ) [facility] Smoking Quitline, (3-314-YQTHGGE) 4. Opioid use disorder Suboxone 8mg/2mg SL film twice daily - monthly appointments and pill counts, and emties, and UDS discuss therapy options Discussed policy and procedures of suboxone, pill counts, UDS, controlled med contract. Discussed that she will need to come back in one week and will start Sublocade 300mg then in a month Sublocade 100mg per month. Patient educated on Sublocade, reduction of addiction to Suboxone risk and agreed Spoke with Dr. Omer about plan of care with suboxone and sublocade at last visit Subolcade [place] will continue Suboxone at this time and patient will like to try Suboclade in future. 5. ELEVATED Blood pressure educated on healthy b/p 120/80 monitor b/p at home heart healthy diet and excise limit salt intake limit soda intake and caffiene increase water b/p monitored and see PCP 07/23/2024 Encounter for screening for depression (ICD-10 - Z13.31) Learning About Depression Screening material was published 1. Mild recurrent major depression -Prozac 20 mg daily (3 tabs daily) obtain recent labs PCP educated on all medications, benefits, side effects and risk, and educated on depression, anxiety, and mood d/o and educated on compliance of medications, appointment's, continue therapy discussion with patient about course of treatment and patient instructions. [place] prescription reviewed 2. Generalized anxiety disorder - Xanax 1 mg twice a day UDS showed suboxone and cannibis and Benzo discuss cannabis use and Benzo and patient reported will stop cannabis Patient was abusing opiated and has been taking suboxone off the street for the past 2-3 years. Discussed moving to sublocade to assure that she is not addicted to suboxone and to give steady medication. Patient agreeable. Instructed on plan of care -one week of suboxone, return to office and will start sublocade 300mg, then 100mg monthly. Discussed and educated pt regarding benzodiazepines are generally not intended for prolonged use and that use can cause tolerance, dependence, depression, and associated memory issues including dementias (this list is not exhaustive). Benzodiazepine use is generally not recommended concurrently with pain medications and/or other controlled substances due to increased risks of profound sedation, respiratory depression, coma, and even . They are not to be used with any alcohol, as this combination can also be lethal. Patient was provided caution 3. Nicotine dependence Do not smoke. Nicotine and other chemicals in cigarettes and cigars can cause lung damage. Ask your healthcare provider for information if you currently smoke and need help to quit. E-cigarettes or smokeless tobacco still contain nicotine. Talk to your healthcare provider before you use these products. education on decrease to stopping nicotine products and stop smoking hotline given -Quit - Yes [place] Tobacco Quitline Call a Smoking Quitline The [employer]'s Smoking Quitline, (9-869-66S-QUIT) Smokefree.gov, which connects you with your State's Quitline, (4-453-SGYHNGH) [facility] Smoking Quitline, (2-059-VSBPFTQ) 4. Opioid use disorder Suboxone 8mg/2mg SL film daily for 1 week Discussed policy and procedures of suboxone, pill counts, UDS, controlled med contract. Discussed that she will need to come back in one week and will start Sublocade 300mg then in a month Sublocade 100mg per month. Patient educated on Sublocade, reduction of addiction to Suboxone risk and agreed Will give one week of Suboxone until prior auth is completed for Sublocade. Spoke with Dr. Omer about plan of care with suboxone and sublocade. 5. ELEVATED Blood pressure educated on healthy b/p 120/80 monitor b/p at home heart healthy diet and excise limit salt intake limit soda intake and caffiene increase water b/p monitored and see PCP 01/20/2024 Generalized anxiety disorder (ICD-10 - F41.1) Generalized Anxiety Disorder: Care Instructions material was published, Learning About Anxiety Disorders material was published 1. Mild recurrent major depression -Prozac 20 mg daily (3 tabs daily) obtain recent labs PCP educated on all medications, benefits, side effects and risk, and educated on depression, anxiety, and mood d/o and educated on compliance of medications, appointment's, continue therapy discussion with patient about course of treatment and patient instructions. [place] prescription reviewed 2. Generalized anxiety disorder - Xanax 1 mg twice a daystable Discussed and educated pt regarding benzodiazepines are generally not intended for prolonged use and that use can cause tolerance, dependence, depression, and associated memory issues including dementias (this list is not exhaustive). Benzodiazepine use is generally not recommended concurrently with pain medications and/or other controlled substances due to increased risks of profound sedation, respiratory depression, coma, and even . They are not to be used with any alcohol, as this combination can also be lethal. Patient was provided caution 3. Nicotine dependence 4. Long-term drug therapy LABS REVIEWED AND SCANND INTO CHART b/p monitored and see PCP 04/23/2024 Generalized anxiety disorder (ICD-10 - F41.1) Generalized Anxiety Disorder: Care Instructions material was published, Learning About Anxiety Disorders material was published 1. Mild recurrent major depression -Prozac 20 mg daily (3 tabs daily) obtain recent labs PCP educated on all medications, benefits, side effects and risk, and educated on depression, anxiety, and mood d/o and educated on compliance of medications, appointment's, continue therapy discussion with patient about course of treatment and patient instructions. [place] prescription reviewed 2. Generalized anxiety disorder - Xanax 1 mg twice a daystable Discussed and educated pt regarding benzodiazepines are generally not intended for prolonged use and that use can cause tolerance, dependence, depression, and associated memory issues including dementias (this list is not exhaustive). Benzodiazepine use is generally not recommended concurrently with pain medications and/or other controlled substances due to increased risks of profound sedation, respiratory depression, coma, and even . They are not to be used with any alcohol, as this combination can also be lethal. Patient was provided caution 3. Nicotine dependence 4. Long-term drug therapy LABS REVIEWED AND SCANND INTO CHART b/p monitored and see PCP 01/20/2024 Nicotine dependence, unspecified, uncomplicated (ICD-10 - F17.200) Deciding About Using Medicines To Quit Smoking material was published, Stopping Smokeless Tobacco Use: Care Instructions material was published, Quitting Tobacco: Care Instructions material was published, Learning About Benefits of Quitting Smoking material was published 1. Mild recurrent major depression -Prozac 20 mg daily (3 tabs daily) obtain recent labs PCP educated on all medications, benefits, side effects and risk, and educated on depression, anxiety, and mood d/o and educated on compliance of medications, appointment's, continue therapy discussion with patient about course of treatment and patient instructions. [place] prescription reviewed 2. Generalized anxiety disorder - Xanax 1 mg twice a daystable Discussed and educated pt regarding benzodiazepines are generally not intended for prolonged use and that use can cause tolerance, dependence, depression, and associated memory issues including dementias (this list is not exhaustive). Benzodiazepine use is generally not recommended concurrently with pain medications and/or other controlled substances due to increased risks of profound sedation, respiratory depression, coma, and even . They are not to be used with any alcohol, as this combination can also be lethal. Patient was provided caution 3. Nicotine dependence 4. Long-term drug therapy LABS REVIEWED AND SCANND INTO CHART b/p monitored and see PCP 07/23/2024 Encounter for screening for cardiovascular disorders (ICD-10 - Z13.6) 1. Mild recurrent major depression -Prozac 20 mg daily (3 tabs daily) obtain recent labs PCP educated on all medications, benefits, side effects and risk, and educated on depression, anxiety, and mood d/o and educated on compliance of medications, appointment's, continue therapy discussion with patient about course of treatment and patient instructions. [place] prescription reviewed 2. Generalized anxiety disorder - Xanax 1 mg twice a day UDS showed suboxone and cannibis and Benzo discuss cannabis use and Benzo and patient reported will stop cannabis Patient was abusing opiated and has been taking suboxone off the street for the past 2-3 years. Discussed moving to sublocade to assure that she is not addicted to suboxone and to give steady medication. Patient agreeable. Instructed on plan of care -one week of suboxone, return to office and will start sublocade 300mg, then 100mg monthly. Discussed and educated pt regarding benzodiazepines are generally not intended for prolonged use and that use can cause tolerance, dependence, depression, and associated memory issues including dementias (this list is not exhaustive). Benzodiazepine use is generally not recommended concurrently with pain medications and/or other controlled substances due to increased risks of profound sedation, respiratory depression, coma, and even . They are not to be used with any alcohol, as this combination can also be lethal. Patient was provided caution 3. Nicotine dependence Do not smoke. Nicotine and other chemicals in cigarettes and cigars can cause lung damage. Ask your healthcare provider for information if you currently smoke and need help to quit. E-cigarettes or smokeless tobacco still contain nicotine. Talk to your healthcare provider before you use these products. education on decrease to stopping nicotine products and stop smoking hotline given Quit - Yes [place] Tobacco Quitline Call a Smoking Quitline The [employer]'s Smoking Quitline, (7-096-78O-QUIT) Smokefree.gov, which connects you with your State's Quitline, (2-556-WDRAVTD) [facility] Smoking Quitline, (7-861-SHSRTDS) 4. Opioid use disorder Suboxone 8mg/2mg SL film daily for 1 week Discussed policy and procedures of suboxone, pill counts, UDS, controlled med contract. Discussed that she will need to come back in one week and will start Sublocade 300mg then in a month Sublocade 100mg per month. Patient educated on Sublocade, reduction of addiction to Suboxone risk and agreed Will give one week of Suboxone until prior auth is completed for Sublocade. Spoke with Dr. Omer about plan of care with suboxone and sublocade. 5. ELEVATED Blood pressure educated on healthy b/p 120/80 monitor b/p at home heart healthy diet and excise limit salt intake limit soda intake and caffiene increase water b/p monitored and see PCP 08/02/2024 Encounter for screening for cardiovascular disorders (ICD-10 - Z13.6) 1. major depression -Prozac 20 mg daily (3 tabs daily) obtain recent labs PCP educated on all medications, benefits, side effects and risk, and educated on depression, anxiety, and mood d/o and educated on compliance of medications, appointment's, continue therapy discussion with patient about course of treatment and patient instructions. [place] prescription reviewed 2. Generalized anxiety disorder - Xanax 1 mg twice a day- plan to taper off in near future UDS showed suboxone and Benzo- discuss Patient was abusing opiated and has been taking suboxone off the street for the past 2-3 years. Discussed moving to sublocade in near future and coverage with insurance to assure that she is not addicted to suboxone and to give steady medication. Patient agreeable. Discussed and educated pt regarding benzodiazepines are generally not intended for prolonged use and that use can cause tolerance, dependence, depression, and associated memory issues including dementias (this list is not exhaustive). Benzodiazepine use is generally not recommended concurrently with pain medications and/or other controlled substances due to increased risks of profound sedation, respiratory depression, coma, and even . They are not to be used with any alcohol, as this combination can also be lethal. Patient was provided caution 3. Nicotine dependence Do not smoke. Nicotine and other chemicals in cigarettes and cigars can cause lung damage. Ask your healthcare provider for information if you currently smoke and need help to quit. E-cigarettes or smokeless tobacco still contain nicotine. Talk to your healthcare provider before you use these products. education on decrease to stopping nicotine products and stop smoking hotline given Quit - Yes [place] Tobacco Quitline Call a Smoking Quitline The [employer]'s Smoking Quitline, (1-966-32X-QUIT) Smokefree.gov, which connects you with your State's Quitline, (2-444-MOPBTWX) [facility] Smoking Quitline, (7-595-HBWYMBT) 4. Opioid use disorder Suboxone 8mg/2mg SL film twice daily - monthly appointments and pill counts, and emties, and UDS discuss therapy options Discussed policy and procedures of suboxone, pill counts, UDS, controlled med contract. Discussed that she will need to come back in one week and will start Sublocade 300mg then in a month Sublocade 100mg per month. Patient educated on Sublocade, reduction of addiction to Suboxone risk and agreed Spoke with Dr. Omer about plan of care with suboxone and sublocade at last visit Subolcade [place] will continue Suboxone at this time and patient will like to try Suboclade in future. 5. ELEVATED Blood pressure educated on healthy b/p 120/80 monitor b/p at home heart healthy diet and excise limit salt intake limit soda intake and caffiene increase water b/p monitored and see PCP 04/23/2024 Nicotine dependence, unspecified, uncomplicated (ICD-10 - F17.200) Deciding About Using Medicines To Quit Smoking material was published, Stopping Smokeless Tobacco Use: Care Instructions material was published, Quitting Tobacco: Care Instructions material was published, Learning About Benefits of Quitting Smoking material was published 1. Mild recurrent major depression -Prozac 20 mg daily (3 tabs daily) obtain recent labs PCP educated on all medications, benefits, side effects and risk, and educated on depression, anxiety, and mood d/o and educated on compliance of medications, appointment's, continue therapy discussion with patient about course of treatment and patient instructions. [place] prescription reviewed 2. Generalized anxiety disorder - Xanax 1 mg twice a daystable Discussed and educated pt regarding benzodiazepines are generally not intended for prolonged use and that use can cause tolerance, dependence, depression, and associated memory issues including dementias (this list is not exhaustive). Benzodiazepine use is generally not recommended concurrently with pain medications and/or other controlled substances due to increased risks of profound sedation, respiratory depression, coma, and even . They are not to be used with any alcohol, as this combination can also be lethal. Patient was provided caution 3. Nicotine dependence 4. Long-term drug therapy LABS REVIEWED AND SCANND INTO CHART b/p monitored and see PCP 09/02/2024 Encounter for screening for depression (ICD-10 - Z13.31) Learning About Depression Screening material was published 1. major depression -Prozac 20 mg daily (3 tabs daily) obtain labs PCP educated on all medications, benefits, side effects and risk, and educated on depression, anxiety, and mood d/o and educated on compliance of medications, appointment's, continue therapy discussion with patient about course of treatment and patient instructions. [place] prescription reviewed 2. Generalized anxiety disorder - Xanax 1 mg twice a day- plan to taper off in near future UDS showed suboxone and Benzo- discuss Patient was abusing opiated and has been taking suboxone off the street for the past 2-3 years. Discussed moving to sublocade in near future and coverage with insurance to assure that she is not addicted to suboxone and to give steady medication. Patient agreeable. Discussed and educated pt regarding benzodiazepines are generally not intended for prolonged use and that use can cause tolerance, dependence, depression, and associated memory issues including dementias (this list is not exhaustive). Benzodiazepine use is generally not recommended concurrently with pain medications and/or other controlled substances due to increased risks of profound sedation, respiratory depression, coma, and even . They are not to be used with any alcohol, as this combination can also be lethal. Patient was provided caution 3. Nicotine dependence Do not smoke. Nicotine and other chemicals in cigarettes and cigars can cause lung damage. Ask your healthcare provider for information if you currently smoke and need help to quit. E-cigarettes or smokeless tobacco still contain nicotine. Talk to your healthcare provider before you use these products. education on decrease to stopping nicotine products and stop smoking hotline given 03-Quit - Yes [place] Tobacco Quitline Call a Smoking Quitline The [employer]'s Smoking Quitline, (7-011-93A-QUIT) Smokefree.gov, which connects you with your State's Quitline, (6-002-JIEYTEI) [facility] Smoking Quitline, (6-051-FUCZAAX) 4. Opioid use disorder Suboxone 8mg/2mg SL film twice daily - monthly appointments and pill counts, and emties, and UDS discuss therapy options Discussed policy and procedures of suboxone, pill counts, UDS, controlled med contract. Discussed that she will need to come back in one week and will start Sublocade 300mg then in a month Sublocade 100mg per month. Patient educated on Sublocade, reduction of addiction to Suboxone risk and agreed Spoke with Dr. Omer about plan of care with suboxone and sublocade at last [place] Subolcade [place] will continue Suboxone at this time and patient will like to try Suboclade in future. 5. ELEVATED Blood pressure- PATIENT will see PCP and monitor and document B/P at home discuss B/P and cardiovascular risk educated on healthy b/p 120/80 monitor b/p at home heart healthy diet and excise limit salt intake limit soda intake and caffiene increase water b/p monitored and see PCP 09/30/2024 Encounter for screening for cardiovascular disorders (ICD-10 - Z13.6) 1. major depression -Prozac 20 mg daily (3 tabs daily) no refill needed today obtain labs PCP educated on all medications, benefits, side effects and risk, and educated on depression, anxiety, and mood d/o and educated on compliance of medications, appointment's, continue therapy discussion with patient about course of treatment and patient instructions. [place] prescription reviewed 2. Generalized anxiety disorder - Xanax 1 mg twice a day- plan to taper off in near future Patient was abusing opiated and has been taking suboxone off the street for the past 2-3 years. Discussed moving to sublocade in near future and coverage with insurance to assure that she is not addicted to suboxone and to give steady medication. Patient agreeable. Discussed and educated pt regarding benzodiazepines are generally not intended for prolonged use and that use can cause tolerance, dependence, depression, and associated memory issues including dementias (this list is not exhaustive). Benzodiazepine use is generally not recommended concurrently with pain medications and/or other controlled substances due to increased risks of profound sedation, respiratory depression, coma, and even . They are not to be used with any alcohol, as this combination can also be lethal. Patient was provided caution 3. Nicotine dependence Do not smoke. Nicotine and other chemicals in cigarettes and cigars can cause lung damage. Ask your healthcare provider for information if you currently smoke and need help to quit. E-cigarettes or smokeless tobacco still contain nicotine. Talk to your healthcare provider before you use these products. education on decrease to stopping nicotine products and stop smoking hotline given -Quit - Yes [place] Tobacco Quitline Call a Smoking Quitline The [employer]'s Smoking Quitline, (1-052-07K-QUIT) Smokefree.gov, which connects you with your State's Quitline, (3-999-JVXUUHJ) [facility] Smoking Quitline, (9-235-GWFBFPX) 4. Opioid use disorder Suboxone 8mg/2mg SL film twice daily - monthly appointments and pill counts, and emties, and UDS discuss therapy options Discussed policy and procedures of suboxone, pill counts, UDS, controlled med contract. Discussed that she will need to come back in one week and will start Sublocade 300mg then in a month Sublocade 100mg per month. Patient educated on Sublocade, reduction of addiction to Suboxone risk and agreed Spoke with Dr. Omer about plan of care with suboxone and sublocade at last visit Subolcade [place] will continue Suboxone at this time 5. ELEVATED Blood pressure- PATIENT will see PCP and monitor and document B/P at home discuss B/P and cardiovascular risk educated on healthy b/p 120/80 monitor b/p at home heart healthy diet and excise limit salt intake limit soda intake and caffiene increase water b/p monitored and see PCP 10/29/2024 Nicotine use (ICD-10 - Z72.0) Quitting Tobacco: Care Instructions material was published, Stopping Smokeless Tobacco Use: Care Instructions material was published, Learning About Benefits of Quitting Smoking material was published, Deciding About Using Medicines To Quit Smoking material was published, Deciding About Using Medicines To Quit Smoking material was published, Quitting Tobacco: Care Instructions material was published, Stopping Smokeless Tobacco Use: Care Instructions material was published, Learning About Benefits of Quitting Smoking material was published, Deciding About Using Medicines To Quit Smoking material was published, Learning About Benefits of Quitting Smoking material was published, Stopping Smokeless Tobacco Use: Care Instructions material was published, Quitting Tobacco: Care Instructions material was published 1. major depression -Prozac 20 mg daily (3 tabs daily) obtain labs PCP educated on all medications, benefits, side effects and risk, and educated on depression, anxiety, and mood d/o and educated on compliance of medications, appointment's, continue therapy discussion with patient about course of treatment and patient instructions. [place] prescription reviewed 2. Generalized anxiety disorder - GDR plans discuss and will do slow tiration over each visit with plan to stop Xanax decrease Xanax 1 mg in evening and Xanax 0.5 mg in am- plan to taper off in near future discuss and educated on adding Buspar 5 mg twice a day for anxiety and panic discuss and educated on adding Vistaril 10 mg twice a day for anxiety and panic Patient was abusing opiated and has been taking suboxone off the street for the past 2-3 years. Discussed moving to sublocade in near future and coverage with insurance to assure that she is not addicted to suboxone and to give steady medication. Patient agreeable. Discussed and educated pt regarding benzodiazepines are generally not intended for prolonged use and that use can cause tolerance, dependence, depression, and associated memory issues including dementias (this list is not exhaustive). Benzodiazepine use is generally not recommended concurrently with pain medications and/or other controlled substances due to increased risks of profound sedation, respiratory depression, coma, and even . They are not to be used with any alcohol, as this combination can also be lethal. Patient was provided caution 3. Nicotine dependence Do not smoke. Nicotine and other chemicals in cigarettes and cigars can cause lung damage. Ask your healthcare provider for information if you currently smoke and need help to quit. E-cigarettes or smokeless tobacco still contain nicotine. Talk to your healthcare provider before you use these products. education on decrease to stopping nicotine products and stop smoking hotline given 44-Quit - Yes [place] Tobacco Quitline Call a Smoking Quitline The [employer]'s Smoking Quitline, (9-211-53G-QUIT) Smokefree.gov, which connects you with your State's Quitline, (5-007-MJGIPGT) Veterans Smoking Quitline, (4-820-CYCPBPD) 4. Opioid use disorder Suboxone 8mg/2mg SL film twice daily - monthly appointments and pill counts, and emties, and UDS discuss therapy options Discussed policy and procedures of suboxone, pill counts, UDS, controlled med contract. Discussed that she will need to come back in one week and will start Sublocade 300mg then in a month Sublocade 100mg per month. Patient educated on Sublocade, reduction of addiction to Suboxone risk and agreed Subolcade [place] on insurance will continue Suboxone at this time 5. ELEVATED Blood pressure- PATIENT will see PCP appointment 12/13 to discuss HTN and medication options monitor and document B/P at home discuss B/P and cardiovascular risk educated on healthy b/p 120/80 monitor b/p at home heart healthy diet and excise limit salt intake limit soda intake and caffiene increase water b/p monitored and see PCP 12/28/2024 Generalized anxiety disorder (ICD-10 - F41.1) Generalized Anxiety Disorder: Care Instructions material was published, Learning About Anxiety Disorders material was published, Learning About Generalized Anxiety Disorder material was published, Generalized Anxiety Disorder: Care Instructions material was published, Learning About Anxiety Disorders material was published, Generalized Anxiety Disorder: Care Instructions material was published, Learning About Generalized Anxiety Disorder material was published, Learning About Anxiety Disorders material was published 1. 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 [place] prescription reviewed 2. Generalized anxiety disorder - GDR plans discuss and will do slow tiration with plan to stop Xanax Xanax 0.5 mg in evening and Xanax 0.5 mg in am- plan to continue at this dose for next 3 months plan to taper off in near future discuss and educated on increase Vistaril 25 mg three times a day for anxiety and panic pateint reported 10 mg dose taking 3 tabs at a time recently Patient was abusing opiated and has been taking suboxone off the street for the past 2-3 years. Discussed moving to sublocade in near future and coverage with insurance to assure that she is not addicted to suboxone and to give steady medication. Patient agreeable. Discussed and educated pt regarding benzodiazepines are generally not intended for prolonged use and that use can cause tolerance, dependence, depression, and associated memory issues including dementias (this list is not exhaustive). Benzodiazepine use is generally not recommended concurrently with pain medications and/or other controlled substances due to increased risks of profound sedation, respiratory depression, coma, and even . They are not to be used with any alcohol, as this combination can also be lethal. Patient was provided caution 3. Nicotine dependence Do not smoke. Nicotine and other chemicals in cigarettes and cigars can cause lung damage. Ask your healthcare provider for information if you currently smoke and need help to quit. E-cigarettes or smokeless tobacco still contain nicotine. Talk to your healthcare provider before you use these products. education on decrease to stopping nicotine products and stop smoking hotline given 532-Quit - Yes [place] Tobacco Quitline Call a Smoking Quitline The [employer]'s Smoking Quitline, (0-031-84D-QUIT) Smokefree.gov, which connects you with your State's Quitline, (1-410-TVKEOWN) Veterans Smoking Quitline, (2-456-WUUMZBW) 4. Opioid use disorder Suboxone 8mg/2mg SL film twice daily - monthly appointments and pill counts, and emties, and UDS discuss therapy options Discussed policy and procedures of suboxone, pill counts, UDS, controlled med contract. Discussed that she will need to come back in one week and will start Sublocade 300mg then in a month Sublocade 100mg per month. Patient educated on Sublocade, reduction of addiction to Suboxone risk and agreed Subolcade [place] insurance will continue Suboxone at this time 5. ELEVATED Blood pressure- PATIENT will see PCP appointment 01/13 to discuss HTN and medication options monitor and document B/P at home discuss B/P and cardiovascular risk educated on healthy b/p 120/80 monitor b/p at home heart healthy diet and excise limit salt intake limit soda intake and caffiene increase water b/p monitored and see PCP 11/26/2024 Nicotine use (ICD-10 - Z72.0) Quitting Tobacco: Care Instructions material was published, Stopping Smokeless Tobacco Use: Care Instructions material was published, Learning About Benefits of Quitting Smoking material was published, Deciding About Using Medicines To Quit Smoking material was published, Deciding About Using Medicines To Quit Smoking material was published, Quitting Tobacco: Care Instructions material was published, Stopping Smokeless Tobacco Use: Care Instructions material was published, Learning About Benefits of Quitting Smoking material was published, Deciding About Using Medicines To Quit Smoking material was published, Learning About Benefits of Quitting Smoking material was published, Stopping Smokeless Tobacco Use: Care Instructions material was published, Quitting Tobacco: Care Instructions material was published 1. major depression -Prozac 20 mg daily (3 tabs daily) obtain labs PCP educated on all medications, benefits, side effects and risk, and educated on depression, anxiety, and mood d/o and educated on compliance of medications, appointment's, continue therapy discussion with patient about course of treatment and patient instructions. [place] prescription reviewed 2. Generalized anxiety disorder - GDR plans discuss and will do slow tiration over each visit with plan to stop Xanax decrease Xanax 0.5 mg in evening and Xanax 0.5 mg in am- plan to taper off in near future d/c Buspar 5 mg twice a day for anxiety and panic not taking discuss and educated on increase Vistaril 10 mg three times a day for anxiety and panic Patient was abusing opiated and has been taking suboxone off the street for the past 2-3 years. Discussed moving to sublocade in near future and coverage with insurance to assure that she is not addicted to suboxone and to give steady medication. Patient agreeable. Discussed and educated pt regarding benzodiazepines are generally not intended for prolonged use and that use can cause tolerance, dependence, depression, and associated memory issues including dementias (this list is not exhaustive). Benzodiazepine use is generally not recommended concurrently with pain medications and/or other controlled substances due to increased risks of profound sedation, respiratory depression, coma, and even . They are not to be used with any alcohol, as this combination can also be lethal. Patient was provided caution 3. Nicotine dependence Do not smoke. Nicotine and other chemicals in cigarettes and cigars can cause lung damage. Ask your healthcare provider for information if you currently smoke and need help to quit. E-cigarettes or smokeless tobacco still contain nicotine. Talk to your healthcare provider before you use these products. education on decrease to stopping nicotine products and stop smoking hotline given -Quit - Yes [place] Tobacco Quitline Call a Smoking Quitline The [employer] Smoking Quitline, (5-395-59K-QUIT) Smokefree.gov, which connects you with your State's Quitline, (0-587-SZVEACX) Veterans Smoking Quitline, (2-369-OPFRYIW) 4. Opioid use disorder Suboxone 8mg/2mg SL film twice daily - monthly appointments and pill counts, and emties, and UDS discuss therapy options Discussed policy and procedures of suboxone, pill counts, UDS, controlled med contract. Discussed that she will need to come back in one week and will start Sublocade 300mg then in a month Sublocade 100mg per month. Patient educated on Sublocade, reduction of addiction to Suboxone risk and agreed Subolcade [place] insurance will continue Suboxone at this time 5. ELEVATED Blood pressure- PATIENT will see PCP appointment 01/13 to discuss HTN and medication options monitor and document B/P at home discuss B/P and cardiovascular risk educated on healthy b/p 120/80 monitor b/p at home heart healthy diet and excise limit salt intake limit soda intake and caffiene increase water b/p monitored and see PCP 12/28/2024 Elevated blood pressure reading (ICD-10 - R03.0) Learning About High Blood Pressure material was published, High Blood Pressure: Care Instructions material was published, High Blood Pressure: Care Instructions material was published, Learning About High Blood Pressure material was published, High Blood Pressure: Care Instructions material was published, Learning About High Blood Pressure material was published 1. 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 [place] prescription reviewed 2. Generalized anxiety disorder - GDR plans discuss and will do slow tiration with plan to stop Xanax Xanax 0.5 mg in evening and Xanax 0.5 mg in am- plan to continue at this dose for next 3 months plan to taper off in near future discuss and educated on increase Vistaril 25 mg three times a day for anxiety and panic pateint reported 10 mg dose taking 3 tabs at a time recently Patient was abusing opiated and has been taking suboxone off the street for the past 2-3 years. Discussed moving to sublocade in near future and coverage with insurance to assure that she is not addicted to suboxone and to give steady medication. Patient agreeable. Discussed and educated pt regarding benzodiazepines are generally not intended for prolonged use and that use can cause tolerance, dependence, depression, and associated memory issues including dementias (this list is not exhaustive). Benzodiazepine use is generally not recommended concurrently with pain medications and/or other controlled substances due to increased risks of profound sedation, respiratory depression, coma, and even . They are not to be used with any alcohol, as this combination can also be lethal. Patient was provided caution 3. Nicotine dependence Do not smoke. Nicotine and other chemicals in cigarettes and cigars can cause lung damage. Ask your healthcare provider for information if you currently smoke and need help to quit. E-cigarettes or smokeless tobacco still contain nicotine. Talk to your healthcare provider before you use these products. education on decrease to stopping nicotine products and stop smoking hotline given 672-Quit - Yes [place] Tobacco Quitline Call a Smoking Quitline The [employer]'s Smoking Quitline, (5-547-89X-QUIT) Smokefree.gov, which connects you with your State's Quitline, (7-910-YJWWBEY) Veterans Smoking Quitline, (6-152-SKLZCFN) 4. Opioid use disorder Suboxone 8mg/2mg SL film twice daily - monthly appointments and pill counts, and emties, and UDS discuss therapy options Discussed policy and procedures of suboxone, pill counts, UDS, controlled med contract. Discussed that she will need to come back in one week and will start Sublocade 300mg then in a month Sublocade 100mg per month. Patient educated on Sublocade, reduction of addiction to Suboxone risk and agreed Subolcade [place] on insurance will continue Suboxone at this time 5. ELEVATED Blood pressure- PATIENT will see PCP appointment 01/13 to discuss HTN and medication options monitor and document B/P at home discuss B/P and cardiovascular risk educated on healthy b/p 120/80 monitor b/p at home heart healthy diet and excise limit salt intake limit soda intake and caffiene increase water b/p monitored and see PCP 11/26/2024 Encounter for screening for cardiovascular disorders (ICD-10 - Z13.6) 1. major depression -Prozac 20 mg daily (3 tabs daily) obtain labs PCP educated on all medications, benefits, side effects and risk, and educated on depression, anxiety, and mood d/o and educated on compliance of medications, appointment's, continue therapy discussion with patient about course of treatment and patient instructions. [place] prescription reviewed 2. Generalized anxiety disorder - GDR plans discuss and will do slow tiration over each visit with plan to stop Xanax decrease Xanax 0.5 mg in evening and Xanax 0.5 mg in am- plan to taper off in near future d/c Buspar 5 mg twice a day for anxiety and panic not taking discuss and educated on increase Vistaril 10 mg three times a day for anxiety and panic Patient was abusing opiated and has been taking suboxone off the street for the past 2-3 years. Discussed moving to sublocade in near future and coverage with insurance to assure that she is not addicted to suboxone and to give steady medication. Patient agreeable. Discussed and educated pt regarding benzodiazepines are generally not intended for prolonged use and that use can cause tolerance, dependence, depression, and associated memory issues including dementias (this list is not exhaustive). Benzodiazepine use is generally not recommended concurrently with pain medications and/or other controlled substances due to increased risks of profound sedation, respiratory depression, coma, and even . They are not to be used with any alcohol, as this combination can also be lethal. Patient was provided caution 3. Nicotine dependence Do not smoke. Nicotine and other chemicals in cigarettes and cigars can cause lung damage. Ask your healthcare provider for information if you currently smoke and need help to quit. E-cigarettes or smokeless tobacco still contain nicotine. Talk to your healthcare provider before you use these products. education on decrease to stopping nicotine products and stop smoking hotline given Quit - Yes [place] Tobacco Quitline Call a Smoking Quitline The [employer]'s Smoking Quitline, (7-397-78V-QUIT) Smokefree.gov, which connects you with your State's Quitline, (4-090-KTGNISP) Veterans Smoking Quitline, (6-267-PGDOGHX) 4. Opioid use disorder Suboxone 8mg/2mg SL film twice daily - monthly appointments and pill counts, and emties, and UDS discuss therapy options Discussed policy and procedures of suboxone, pill counts, UDS, controlled med contract. Discussed that she will need to come back in one week and will start Sublocade 300mg then in a month Sublocade 100mg per month. Patient educated on Sublocade, reduction of addiction to Suboxone risk and agreed Subolcade [place] insurance will continue Suboxone at this time 5. ELEVATED Blood pressure- PATIENT will see PCP appointment 01/13 to discuss HTN and medication options monitor and document B/P at home discuss B/P and cardiovascular risk educated on healthy b/p 120/80 monitor b/p at home heart healthy diet and excise limit salt intake limit soda intake and caffiene increase water b/p monitored and see PCP 10/29/2024 Encounter for screening for cardiovascular disorders (ICD-10 - Z13.6) 1. major depression -Prozac 20 mg daily (3 tabs daily) obtain labs PCP educated on all medications, benefits, side effects and risk, and educated on depression, anxiety, and mood d/o and educated on compliance of medications, appointment's, continue therapy discussion with patient about course of treatment and patient instructions. [place] prescription reviewed 2. Generalized anxiety disorder - GDR plans discuss and will do slow tiration over each visit with plan to stop Xanax decrease Xanax 1 mg in evening and Xanax 0.5 mg in am- plan to taper off in near future discuss and educated on adding Buspar 5 mg twice a day for anxiety and panic discuss and educated on adding Vistaril 10 mg twice a day for anxiety and panic Patient was abusing opiated and has been taking suboxone off the street for the past 2-3 years. Discussed moving to sublocade in near future and coverage with insurance to assure that she is not addicted to suboxone and to give steady medication. Patient agreeable. Discussed and educated pt regarding benzodiazepines are generally not intended for prolonged use and that use can cause tolerance, dependence, depression, and associated memory issues including dementias (this list is not exhaustive). Benzodiazepine use is generally not recommended concurrently with pain medications and/or other controlled substances due to increased risks of profound sedation, respiratory depression, coma, and even . They are not to be used with any alcohol, as this combination can also be lethal. Patient was provided caution 3. Nicotine dependence Do not smoke. Nicotine and other chemicals in cigarettes and cigars can cause lung damage. Ask your healthcare provider for information if you currently smoke and need help to quit. E-cigarettes or smokeless tobacco still contain nicotine. Talk to your healthcare provider before you use these products. education on decrease to stopping nicotine products and stop smoking hotline given 239-Quit - Yes [place] Tobacco Quitline Call a Smoking Quitline The [employer]'s Smoking Quitline, (8-308-40F-QUIT) Smokefree.gov, which connects you with your State's Quitline, (0-434-RZFBHMP) [facility] Smoking Quitline, (4-441-TMKXRBM) 4. Opioid use disorder Suboxone 8mg/2mg SL film twice daily - monthly appointments and pill counts, and emties, and UDS discuss therapy options Discussed policy and procedures of suboxone, pill counts, UDS, controlled med contract. Discussed that she will need to come back in one week and will start Sublocade 300mg then in a month Sublocade 100mg per month. Patient educated on Sublocade, reduction of addiction to Suboxone risk and agreed Subolcade [place] on [place] will continue Suboxone at this time 5. ELEVATED Blood pressure- PATIENT will see PCP appointment 12/13 to discuss HTN and medication options monitor and document B/P at home discuss B/P and cardiovascular risk educated on healthy b/p 120/80 monitor b/p at home heart healthy diet and excise limit salt intake limit soda intake and caffiene increase water b/p monitored and see PCP 09/30/2024 Dietary counseling and surveillance (ICD-10 - Z71.3) Counting Carbohydrates for Diabetes: Care Instructions material was published, Learning About Carbohydrate (Carb) Counting and Eating Out When You Have Diabetes material was published, Low Sodium Diet (2,000 Milligram): Care Instructions material was published, Learning About Low-Fat Eating material was published, Learning About Low-Carbohydrat e Foods material was published, DASH Diet: Care Instructions material was published, Learning About Low-Fat Eating material was published, Learning About Low-Carbohydrat e Diets material was published, Learning About the Mediterranean Diet material was published, Learning About Healthy Weight material was published 1. major depression -Prozac 20 mg daily (3 tabs daily) no refill needed today obtain labs PCP educated on all medications, benefits, side effects and risk, and educated on depression, anxiety, and mood d/o and educated on compliance of medications, appointment's, continue therapy discussion with patient about course of treatment and patient instructions. [place] prescription reviewed 2. Generalized anxiety disorder - Xanax 1 mg twice a day- plan to taper off in near future Patient was abusing opiated and has been taking suboxone off the street for the past 2-3 years. Discussed moving to sublocade in near future and coverage with insurance to assure that she is not addicted to suboxone and to give steady medication. Patient agreeable. Discussed and educated pt regarding benzodiazepines are generally not intended for prolonged use and that use can cause tolerance, dependence, depression, and associated memory issues including dementias (this list is not exhaustive). Benzodiazepine use is generally not recommended concurrently with pain medications and/or other controlled substances due to increased risks of profound sedation, respiratory depression, coma, and even . They are not to be used with any alcohol, as this combination can also be lethal. Patient was provided caution 3. Nicotine dependence Do not smoke. Nicotine and other chemicals in cigarettes and cigars can cause lung damage. Ask your healthcare provider for information if you currently smoke and need help to quit. E-cigarettes or smokeless tobacco still contain nicotine. Talk to your healthcare provider before you use these products. education on decrease to stopping nicotine products and stop smoking hotline given -Quit - Yes [place] Tobacco Quitline Call a Smoking Quitline The [employer]'s Smoking Quitline, (3-967-36Z-QUIT) Smokefree.gov, which connects you with your State's Quitline, (3-692-VKYQIEJ) Veterans Smoking Quitline, (1-879-HKHSCAG) 4. Opioid use disorder Suboxone 8mg/2mg SL film twice daily - monthly appointments and pill counts, and emties, and UDS discuss therapy options Discussed policy and procedures of suboxone, pill counts, UDS, controlled med contract. Discussed that she will need to come back in one week and will start Sublocade 300mg then in a month Sublocade 100mg per month. Patient educated on Sublocade, reduction of addiction to Suboxone risk and agreed Spoke with Dr. Omer about plan of care with suboxone and sublocade at last visit Subolcade [place] on insurance will continue Suboxone at this time 5. ELEVATED Blood pressure- PATIENT will see PCP and monitor and document B/P at home discuss B/P and cardiovascular risk educated on healthy b/p 120/80 monitor b/p at home heart healthy diet and excise limit salt intake limit soda intake and caffiene increase water b/p monitored and see PCP 08/02/2024 Dietary counseling and surveillance (ICD-10 - Z71.3) Counting Carbohydrates for Diabetes: Care Instructions material was published, Learning About Carbohydrate (Carb) Counting and Eating Out When You Have Diabetes material was published, Low Sodium Diet (2,000 Milligram): Care Instructions material was published, Learning About Low-Fat Eating material was published, Learning About Low-Carbohydrat e Foods material was published, DASH Diet: Care Instructions material was published, Learning About Low-Fat Eating material was published, Learning About Low-Carbohydrat e Diets material was published, Learning About the Mediterranean Diet material was published, Learning About Healthy Weight material was published 1. major depression -Prozac 20 mg daily (3 tabs daily) obtain recent labs PCP educated on all medications, benefits, side effects and risk, and educated on depression, anxiety, and mood d/o and educated on compliance of medications, appointment's, continue therapy discussion with patient about course of treatment and patient instructions. [place] prescription reviewed 2. Generalized anxiety disorder - Xanax 1 mg twice a day- plan to taper off in near future UDS showed suboxone and Benzo- discuss Patient was abusing opiated and has been taking suboxone off the street for the past 2-3 years. Discussed moving to sublocade in near future and coverage with insurance to assure that she is not addicted to suboxone and to give steady medication. Patient agreeable. Discussed and educated pt regarding benzodiazepines are generally not intended for prolonged use and that use can cause tolerance, dependence, depression, and associated memory issues including dementias (this list is not exhaustive). Benzodiazepine use is generally not recommended concurrently with pain medications and/or other controlled substances due to increased risks of profound sedation, respiratory depression, coma, and even . They are not to be used with any alcohol, as this combination can also be lethal. Patient was provided caution 3. Nicotine dependence Do not smoke. Nicotine and other chemicals in cigarettes and cigars can cause lung damage. Ask your healthcare provider for information if you currently smoke and need help to quit. E-cigarettes or smokeless tobacco still contain nicotine. Talk to your healthcare provider before you use these products. education on decrease to stopping nicotine products and stop smoking hotline given 522-Quit - Yes [place] Tobacco Quitline Call a Smoking Quitline The [employer]'s Smoking Quitline, (3-024-21N-QUIT) Smokefree.gov, which connects you with your State's Quitline, (0-688-LRFUYCK) [facility] Smoking Quitline, (0-024-XSEBJTR) 4. Opioid use disorder Suboxone 8mg/2mg SL film twice daily - monthly appointments and pill counts, and emties, and UDS discuss therapy options Discussed policy and procedures of suboxone, pill counts, UDS, controlled med contract. Discussed that she will need to come back in one week and will start Sublocade 300mg then in a month Sublocade 100mg per month. Patient educated on Sublocade, reduction of addiction to Suboxone risk and agreed Spoke with Dr. Omer about plan of care with suboxone and sublocade at last visit Subolcade [place] will continue Suboxone at this time and patient will like to try Suboclade in future. 5. ELEVATED Blood pressure educated on healthy b/p 120/80 monitor b/p at home heart healthy diet and excise limit salt intake limit soda intake and caffiene increase water b/p monitored and see PCP 09/02/2024 Encounter for screening for cardiovascular disorders (ICD-10 - Z13.6) 1. major depression -Prozac 20 mg daily (3 tabs daily) obtain labs PCP educated on all medications, benefits, side effects and risk, and educated on depression, anxiety, and mood d/o and educated on compliance of medications, appointment's, continue therapy discussion with patient about course of treatment and patient instructions. [place] prescription reviewed 2. Generalized anxiety disorder - Xanax 1 mg twice a day- plan to taper off in near future UDS showed suboxone and Benzo- discuss Patient was abusing opiated and has been taking suboxone off the street for the past 2-3 years. Discussed moving to sublocade in near future and coverage with insurance to assure that she is not addicted to suboxone and to give steady medication. Patient agreeable. Discussed and educated pt regarding benzodiazepines are generally not intended for prolonged use and that use can cause tolerance, dependence, depression, and associated memory issues including dementias (this list is not exhaustive). Benzodiazepine use is generally not recommended concurrently with pain medications and/or other controlled substances due to increased risks of profound sedation, respiratory depression, coma, and even . They are not to be used with any alcohol, as this combination can also be lethal. Patient was provided caution 3. Nicotine dependence Do not smoke. Nicotine and other chemicals in cigarettes and cigars can cause lung damage. Ask your healthcare provider for information if you currently smoke and need help to quit. E-cigarettes or smokeless tobacco still contain nicotine. Talk to your healthcare provider before you use these products. education on decrease to stopping nicotine products and stop smoking hotline given 260Quit - Yes [place] Tobacco Quitline Call a Smoking Quitline The [employer]'s Smoking Quitline, (4-173-44L-QUIT) Smokefree.gov, which connects you with your State's Quitline, (5-984-MOVGGMT) [facility] Smoking Quitline, (5-041-YHQBPXO) 4. Opioid use disorder Suboxone 8mg/2mg SL film twice daily - monthly appointments and pill counts, and emties, and UDS discuss therapy options Discussed policy and procedures of suboxone, pill counts, UDS, controlled med contract. Discussed that she will need to come back in one week and will start Sublocade 300mg then in a month Sublocade 100mg per month. Patient educated on Sublocade, reduction of addiction to Suboxone risk and agreed Spoke with Dr. Omer about plan of care with suboxone and sublocade at last visit Subolchaparrode [place] on insurance will continue Suboxone at this time and patient will like to try Suboclade in future. 5. ELEVATED Blood pressure- PATIENT will see PCP and monitor and document B/P at home discuss B/P and cardiovascular risk educated on healthy b/p 120/80 monitor b/p at home heart healthy diet and excise limit salt intake limit soda intake and caffiene increase water b/p monitored and see PCP 07/23/2024 Dietary counseling and surveillance (ICD-10 - Z71.3) Counting Carbohydrates for Diabetes: Care Instructions material was published, Learning About Carbohydrate (Carb) Counting and Eating Out When You Have Diabetes material was published, Low Sodium Diet (2,000 Milligram): Care Instructions material was published, Learning About Low-Fat Eating material was published, Learning About Low-Carbohydrat e Foods material was published 1. Mild recurrent major depression -Prozac 20 mg daily (3 tabs daily) obtain recent labs PCP educated on all medications, benefits, side effects and risk, and educated on depression, anxiety, and mood d/o and educated on compliance of medications, appointment's, continue therapy discussion with patient about course of treatment and patient instructions. [place] prescription reviewed 2. Generalized anxiety disorder - Xanax 1 mg twice a day UDS showed suboxone and cannibis and Benzo discuss cannabis use and Benzo and patient reported will stop cannabis Patient was abusing opiated and has been taking suboxone off the street for the past 2-3 years. Discussed moving to sublocade to assure that she is not addicted to suboxone and to give steady medication. Patient agreeable. Instructed on plan of care -one week of suboxone, return to office and will start sublocade 300mg, then 100mg monthly. Discussed and educated pt regarding benzodiazepines are generally not intended for prolonged use and that use can cause tolerance, dependence, depression, and associated memory issues including dementias (this list is not exhaustive). Benzodiazepine use is generally not recommended concurrently with pain medications and/or other controlled substances due to increased risks of profound sedation, respiratory depression, coma, and even . They are not to be used with any alcohol, as this combination can also be lethal. Patient was provided caution 3. Nicotine dependence Do not smoke. Nicotine and other chemicals in cigarettes and cigars can cause lung damage. Ask your healthcare provider for information if you currently smoke and need help to quit. E-cigarettes or smokeless tobacco still contain nicotine. Talk to your healthcare provider before you use these products. education on decrease to stopping nicotine products and stop smoking hotline given -Quit - Yes [place] Tobacco Quitline Call a Smoking Quitline The [employer]'s Smoking Quitline, (6-698-40L-QUIT) Smokefree.gov, which connects you with your State's Quitline, (2-116-INFCYVQ) [facility] Smoking Quitline, (1-082-YCITGYX) 4. Opioid use disorder Suboxone 8mg/2mg SL film daily for 1 week Discussed policy and procedures of suboxone, pill counts, UDS, controlled med contract. Discussed that she will need to come back in one week and will start Sublocade 300mg then in a month Sublocade 100mg per month. Patient educated on Sublocade, reduction of addiction to Suboxone risk and agreed Will give one week of Suboxone until prior auth is completed for Sublocade. Spoke with Dr. Omer about plan of care with suboxone and sublocade. 5. ELEVATED Blood pressure educated on healthy b/p 120/80 monitor b/p at home heart healthy diet and excise limit salt intake limit soda intake and caffiene increase water b/p monitored and see PCP 01/20/2024 Other intermediate manager (current) drug therapy (ICD-10 - Z79.899) Medication Refill: Care Instructions material was published 1. Mild recurrent major depression -Prozac 20 mg daily (3 tabs daily) obtain recent labs PCP educated on all medications, benefits, side effects and risk, and educated on depression, anxiety, and mood d/o and educated on compliance of medications, appointment's, continue therapy discussion with patient about course of treatment and patient instructions. [place] prescription reviewed 2. Generalized anxiety disorder - Xanax 1 mg twice a daystable Discussed and educated pt regarding benzodiazepines are generally not intended for prolonged use and that use can cause tolerance, dependence, depression, and associated memory issues including dementias (this list is not exhaustive). Benzodiazepine use is generally not recommended concurrently with pain medications and/or other controlled substances due to increased risks of profound sedation, respiratory depression, coma, and even . They are not to be used with any alcohol, as this combination can also be lethal. Patient was provided caution 3. Nicotine dependence 4. Long-term drug therapy LABS REVIEWED AND SCANND INTO CHART b/p monitored and see PCP 04/23/2024 Other intermediate manager (current) drug therapy (ICD-10 - Z79.899) Medication Refill: Care Instructions material was published 1. Mild recurrent major depression -Prozac 20 mg daily (3 tabs daily) obtain recent labs PCP educated on all medications, benefits, side effects and risk, and educated on depression, anxiety, and mood d/o and educated on compliance of medications, appointment's, continue therapy discussion with patient about course of treatment and patient instructions. [place] prescription reviewed 2. Generalized anxiety disorder - Xanax 1 mg twice a daystable Discussed and educated pt regarding benzodiazepines are generally not intended for prolonged use and that use can cause tolerance, dependence, depression, and associated memory issues including dementias (this list is not exhaustive). Benzodiazepine use is generally not recommended concurrently with pain medications and/or other controlled substances due to increased risks of profound sedation, respiratory depression, coma, and even . They are not to be used with any alcohol, as this combination can also be lethal. Patient was provided caution 3. Nicotine dependence 4. Long-term drug therapy LABS REVIEWED AND SCANND INTO CHART b/p monitored and see PCP 07/23/2024 Major depressive disorder, recurrent, mild (ICD-10 - F33.0) Preventing Depression From Coming Back: Care Instructions material was published, Learning About How to Get Help During a Mental Health Crisis material was published, Learning About Depression Screening material was published, Learning About Depression material was published, Depression Treatment: Care Instructions material was published, Preventing Depression From Coming Back: Care Instructions material was published, Depression Treatment: Care Instructions material was published, Learning About How to Get Help During a Mental Health Crisis material was published 1. Mild recurrent major depression -Prozac 20 mg daily (3 tabs daily) obtain recent labs PCP educated on all medications, benefits, side effects and risk, and educated on depression, anxiety, and mood d/o and educated on compliance of medications, appointment's, continue therapy discussion with patient about course of treatment and patient instructions. [place] prescription reviewed 2. Generalized anxiety disorder - Xanax 1 mg twice a day UDS showed suboxone and cannibis and Benzo discuss cannabis use and Benzo and patient reported will stop cannabis Patient was abusing opiated and has been taking suboxone off the street for the past 2-3 years. Discussed moving to sublocade to assure that she is not addicted to suboxone and to give steady medication. Patient agreeable. Instructed on plan of care -one week of suboxone, return to office and will start sublocade 300mg, then 100mg monthly. Discussed and educated pt regarding benzodiazepines are generally not intended for prolonged use and that use can cause tolerance, dependence, depression, and associated memory issues including dementias (this list is not exhaustive). Benzodiazepine use is generally not recommended concurrently with pain medications and/or other controlled substances due to increased risks of profound sedation, respiratory depression, coma, and even . They are not to be used with any alcohol, as this combination can also be lethal. Patient was provided caution 3. Nicotine dependence Do not smoke. Nicotine and other chemicals in cigarettes and cigars can cause lung damage. Ask your healthcare provider for information if you currently smoke and need help to quit. E-cigarettes or smokeless tobacco still contain nicotine. Talk to your healthcare provider before you use these products. education on decrease to stopping nicotine products and stop smoking hotline given 580Quit - Yes [place] Tobacco Quitline Call a Smoking Quitline The [employer]'s Smoking Quitline, (0-218-06T-QUIT) Smokefree.gov, which connects you with your State's Quitline, (7-085-ZKMHENX) [facility] Smoking Quitline, (3-208-ATGOHOJ) 4. Opioid use disorder Suboxone 8mg/2mg SL film daily for 1 week Discussed policy and procedures of suboxone, pill counts, UDS, controlled med contract. Discussed that she will need to come back in one week and will start Sublocade 300mg then in a month Sublocade 100mg per month. Patient educated on Sublocade, reduction of addiction to Suboxone risk and agreed Will give one week of Suboxone until prior auth is completed for Sublocade. Spoke with Dr. Omer about plan of care with suboxone and sublocade. 5. ELEVATED Blood pressure educated on healthy b/p 120/80 monitor b/p at home heart healthy diet and excise limit salt intake limit soda intake and caffiene increase water b/p monitored and see PCP 07/23/2024 Generalized anxiety disorder (ICD-10 - F41.1) Generalized Anxiety Disorder: Care Instructions material was published, Learning About Anxiety Disorders material was published, Learning About Generalized Anxiety Disorder material was published, Generalized Anxiety Disorder: Care Instructions material was published, Learning About Anxiety Disorders material was published 1. Mild recurrent major depression -Prozac 20 mg daily (3 tabs daily) obtain recent labs PCP educated on all medications, benefits, side effects and risk, and educated on depression, anxiety, and mood d/o and educated on compliance of medications, appointment's, continue therapy discussion with patient about course of treatment and patient instructions. [place] prescription reviewed 2. Generalized anxiety disorder - Xanax 1 mg twice a day UDS showed suboxone and cannibis and Benzo discuss cannabis use and Benzo and patient reported will stop cannabis Patient was abusing opiated and has been taking suboxone off the street for the past 2-3 years. Discussed moving to sublocade to assure that she is not addicted to suboxone and to give steady medication. Patient agreeable. Instructed on plan of care -one week of suboxone, return to office and will start sublocade 300mg, then 100mg monthly. Discussed and educated pt regarding benzodiazepines are generally not intended for prolonged use and that use can cause tolerance, dependence, depression, and associated memory issues including dementias (this list is not exhaustive). Benzodiazepine use is generally not recommended concurrently with pain medications and/or other controlled substances due to increased risks of profound sedation, respiratory depression, coma, and even . They are not to be used with any alcohol, as this combination can also be lethal. Patient was provided caution 3. Nicotine dependence Do not smoke. Nicotine and other chemicals in cigarettes and cigars can cause lung damage. Ask your healthcare provider for information if you currently smoke and need help to quit. E-cigarettes or smokeless tobacco still contain nicotine. Talk to your healthcare provider before you use these products. education on decrease to stopping nicotine products and stop smoking hotline given 27-Quit - Yes [place] Tobacco Quitline Call a Smoking Quitline The [employer]'s Smoking Quitline, (4-415-14Y-QUIT) Smokefree.gov, which connects you with your State's Quitline, (3-955-LQRIZTX) Veterans Smoking Quitline, (2-015-LRHBFGG) 4. Opioid use disorder Suboxone 8mg/2mg SL film daily for 1 week Discussed policy and procedures of suboxone, pill counts, UDS, controlled med contract. Discussed that she will need to come back in one week and will start Sublocade 300mg then in a month Sublocade 100mg per month. Patient educated on Sublocade, reduction of addiction to Suboxone risk and agreed Will give one week of Suboxone until prior auth is completed for Sublocade. Spoke with Dr. Omer about plan of care with suboxone and sublocade. 5. ELEVATED Blood pressure educated on healthy b/p 120/80 monitor b/p at home heart healthy diet and excise limit salt intake limit soda intake and caffiene increase water b/p monitored and see PCP 08/02/2024 Major depressive disorder, recurrent, mild (ICD-10 - F33.0) Preventing Depression From Coming Back: Care Instructions material was published, Learning About How to Get Help During a Mental Health Crisis material was published, Learning About Depression Screening material was published, Learning About Depression material was published, Depression Treatment: Care Instructions material was published, Preventing Depression From Coming Back: Care Instructions material was published, Depression Treatment: Care Instructions material was published, Learning About How to Get Help During a Mental Health Crisis material was published, Preventing Depression From Coming Back: Care Instructions material was published, Learning About Depression Screening material was published 1. major depression -Prozac 20 mg daily (3 tabs daily) obtain recent labs PCP educated on all medications, benefits, side effects and risk, and educated on depression, anxiety, and mood d/o and educated on compliance of medications, appointment's, continue therapy discussion with patient about course of treatment and patient instructions. [place] prescription reviewed 2. Generalized anxiety disorder - Xanax 1 mg twice a day- plan to taper off in near future UDS showed suboxone and Benzo- discuss Patient was abusing opiated and has been taking suboxone off the street for the past 2-3 years. Discussed moving to sublocade in near future and coverage with insurance to assure that she is not addicted to suboxone and to give steady medication. Patient agreeable. Discussed and educated pt regarding benzodiazepines are generally not intended for prolonged use and that use can cause tolerance, dependence, depression, and associated memory issues including dementias (this list is not exhaustive). Benzodiazepine use is generally not recommended concurrently with pain medications and/or other controlled substances due to increased risks of profound sedation, respiratory depression, coma, and even . They are not to be used with any alcohol, as this combination can also be lethal. Patient was provided caution 3. Nicotine dependence Do not smoke. Nicotine and other chemicals in cigarettes and cigars can cause lung damage. Ask your healthcare provider for information if you currently smoke and need help to quit. E-cigarettes or smokeless tobacco still contain nicotine. Talk to your healthcare provider before you use these products. education on decrease to stopping nicotine products and stop smoking hotline given 477-Quit - Yes [place] Tobacco Quitline Call a Smoking Quitline The [employer]'s Smoking Quitline, (0-416-10K-QUIT) Smokefree.gov, which connects you with your State's Quitline, (2-041-IGJDNVJ) [facility] Smoking Quitline, (2-775-EYOQIXK) 4. Opioid use disorder Suboxone 8mg/2mg SL film twice daily - monthly appointments and pill counts, and emties, and UDS discuss therapy options Discussed policy and procedures of suboxone, pill counts, UDS, controlled med contract. Discussed that she will need to come back in one week and will start Sublocade 300mg then in a month Sublocade 100mg per month. Patient educated on Sublocade, reduction of addiction to Suboxone risk and agreed Spoke with Dr. Omer about plan of care with suboxone and sublocade at last visit Subolcade [place] will continue Suboxone at this time and patient will like to try Suboclade in future. 5. ELEVATED Blood pressure educated on healthy b/p 120/80 monitor b/p at home heart healthy diet and excise limit salt intake limit soda intake and caffiene increase water b/p monitored and see PCP 09/02/2024 Dietary counseling and surveillance (ICD-10 - Z71.3) Counting Carbohydrates for Diabetes: Care Instructions material was published, Learning About Carbohydrate (Carb) Counting and Eating Out When You Have Diabetes material was published, Low Sodium Diet (2,000 Milligram): Care Instructions material was published, Learning About Low-Fat Eating material was published, Learning About Low-Carbohydrat e Foods material was published, DASH Diet: Care Instructions material was published, Learning About Low-Fat Eating material was published, Learning About Low-Carbohydrat e Diets material was published, Learning About the Mediterranean Diet material was published, Learning About Healthy Weight material was published 1. major depression -Prozac 20 mg daily (3 tabs daily) obtain labs PCP educated on all medications, benefits, side effects and risk, and educated on depression, anxiety, and mood d/o and educated on compliance of medications, appointment's, continue therapy discussion with patient about course of treatment and patient instructions. [place] prescription reviewed 2. Generalized anxiety disorder - Xanax 1 mg twice a day- plan to taper off in near future UDS showed suboxone and Benzo- discuss Patient was abusing opiated and has been taking suboxone off the street for the past 2-3 years. Discussed moving to sublocade in near future and coverage with insurance to assure that she is not addicted to suboxone and to give steady medication. Patient agreeable. Discussed and educated pt regarding benzodiazepines are generally not intended for prolonged use and that use can cause tolerance, dependence, depression, and associated memory issues including dementias (this list is not exhaustive). Benzodiazepine use is generally not recommended concurrently with pain medications and/or other controlled substances due to increased risks of profound sedation, respiratory depression, coma, and even . They are not to be used with any alcohol, as this combination can also be lethal. Patient was provided caution 3. Nicotine dependence Do not smoke. Nicotine and other chemicals in cigarettes and cigars can cause lung damage. Ask your healthcare provider for information if you currently smoke and need help to quit. E-cigarettes or smokeless tobacco still contain nicotine. Talk to your healthcare provider before you use these products. education on decrease to stopping nicotine products and stop smoking hotline given -Quit - Yes [place] Tobacco Quitline Call a Smoking Quitline The [employer]'s Smoking Quitline, (0-482-90S-QUIT) Smokefree.gov, which connects you with your State's Quitline, (7-399-PWLQJVD) Veterans Smoking Quitline, (1-841-FHEFFOD) 4. Opioid use disorder Suboxone 8mg/2mg SL film twice daily - monthly appointments and pill counts, and emties, and UDS discuss therapy options Discussed policy and procedures of suboxone, pill counts, UDS, controlled med contract. Discussed that she will need to come back in one week and will start Sublocade 300mg then in a month Sublocade 100mg per month. Patient educated on Sublocade, reduction of addiction to Suboxone risk and agreed Spoke with Dr. Omer about plan of care with suboxone and sublocade at last visit Subolcade [place] on insurance will continue Suboxone at this time and patient will like to try Suboclade in future. 5. ELEVATED Blood pressure- PATIENT will see PCP and monitor and document B/P at home discuss B/P and cardiovascular risk educated on healthy b/p 120/80 monitor b/p at home heart healthy diet and excise limit salt intake limit soda intake and caffiene increase water b/p monitored and see PCP 09/30/2024 Major depressive disorder, recurrent, mild (ICD-10 - F33.0) Preventing Depression From Coming Back: Care Instructions material was published, Learning About How to Get Help During a Mental Health Crisis material was published, Learning About Depression Screening material was published, Learning About Depression material was published, Depression Treatment: Care Instructions material was published, Preventing Depression From Coming Back: Care Instructions material was published, Depression Treatment: Care Instructions material was published, Learning About How to Get Help During a Mental Health Crisis material was published, Preventing Depression From Coming Back: Care Instructions material was published, Learning About Depression Screening material was published 1. major depression -Prozac 20 mg daily (3 tabs daily) no refill needed today obtain labs PCP educated on all medications, benefits, side effects and risk, and educated on depression, anxiety, and mood d/o and educated on compliance of medications, appointment's, continue therapy discussion with patient about course of treatment and patient instructions. [place] prescription reviewed 2. Generalized anxiety disorder - Xanax 1 mg twice a day- plan to taper off in near future Patient was abusing opiated and has been taking suboxone off the street for the past 2-3 years. Discussed moving to sublocade in near future and coverage with insurance to assure that she is not addicted to suboxone and to give steady medication. Patient agreeable. Discussed and educated pt regarding benzodiazepines are generally not intended for prolonged use and that use can cause tolerance, dependence, depression, and associated memory issues including dementias (this list is not exhaustive). Benzodiazepine use is generally not recommended concurrently with pain medications and/or other controlled substances due to increased risks of profound sedation, respiratory depression, coma, and even . They are not to be used with any alcohol, as this combination can also be lethal. Patient was provided caution 3. Nicotine dependence Do not smoke. Nicotine and other chemicals in cigarettes and cigars can cause lung damage. Ask your healthcare provider for information if you currently smoke and need help to quit. E-cigarettes or smokeless tobacco still contain nicotine. Talk to your healthcare provider before you use these products. education on decrease to stopping nicotine products and stop smoking hotline given 121-Quit - Yes [place] Tobacco Quitline Call a Smoking Quitline The [employer]'s Smoking Quitline, (7-256-48L-QUIT) Smokefree.gov, which connects you with your State's Quitline, (3-332-YPDBOHL) Veterans Smoking Quitline, (1-328-IZQEUVG) 4. Opioid use disorder Suboxone 8mg/2mg SL film twice daily - monthly appointments and pill counts, and emties, and UDS discuss therapy options Discussed policy and procedures of suboxone, pill counts, UDS, controlled med contract. Discussed that she will need to come back in one week and will start Sublocade 300mg then in a month Sublocade 100mg per month. Patient educated on Sublocade, reduction of addiction to Suboxone risk and agreed Spoke with Dr. Omer about plan of care with suboxone and sublocade at last visit Subolcade [place] will continue Suboxone at this time 5. ELEVATED Blood pressure- PATIENT will see PCP and monitor and document B/P at home discuss B/P and cardiovascular risk educated on healthy b/p 120/80 monitor b/p at home heart healthy diet and excise limit salt intake limit soda intake and caffiene increase water b/p monitored and see PCP 10/29/2024 Dietary counseling and surveillance (ICD-10 - Z71.3) Counting Carbohydrates for Diabetes: Care Instructions material was published, Learning About Carbohydrate (Carb) Counting and Eating Out When You Have Diabetes material was published, Low Sodium Diet (2,000 Milligram): Care Instructions material was published, Learning About Low-Fat Eating material was published, Learning About Low-Carbohydrat e Foods material was published, DASH Diet: Care Instructions material was published, Learning About Low-Fat Eating material was published, Learning About Low-Carbohydrat e Diets material was published, Learning About the Mediterranean Diet material was published, Learning About Healthy Weight material was published, Learning About Low-Carbohydrat e Diets material was published, Low Sodium Diet (2,000 Milligram): Care Instructions material was published, Heart-Healthy Diet: Care Instructions material was published, Learning About Low-Fat Eating material was published, DASH Diet: Care Instructions material was published 1. major depression -Prozac 20 mg daily (3 tabs daily) obtain labs PCP educated on all medications, benefits, side effects and risk, and educated on depression, anxiety, and mood d/o and educated on compliance of medications, appointment's, continue therapy discussion with patient about course of treatment and patient instructions. [place] prescription reviewed 2. Generalized anxiety disorder - GDR plans discuss and will do slow tiration over each visit with plan to stop Xanax decrease Xanax 1 mg in evening and Xanax 0.5 mg in am- plan to taper off in near future discuss and educated on adding Buspar 5 mg twice a day for anxiety and panic discuss and educated on adding Vistaril 10 mg twice a day for anxiety and panic Patient was abusing opiated and has been taking suboxone off the street for the past 2-3 years. Discussed moving to sublocade in near future and coverage with insurance to assure that she is not addicted to suboxone and to give steady medication. Patient agreeable. Discussed and educated pt regarding benzodiazepines are generally not intended for prolonged use and that use can cause tolerance, dependence, depression, and associated memory issues including dementias (this list is not exhaustive). Benzodiazepine use is generally not recommended concurrently with pain medications and/or other controlled substances due to increased risks of profound sedation, respiratory depression, coma, and even . They are not to be used with any alcohol, as this combination can also be lethal. Patient was provided caution 3. Nicotine dependence Do not smoke. Nicotine and other chemicals in cigarettes and cigars can cause lung damage. Ask your healthcare provider for information if you currently smoke and need help to quit. E-cigarettes or smokeless tobacco still contain nicotine. Talk to your healthcare provider before you use these products. education on decrease to stopping nicotine products and stop smoking hotline given -Quit - Yes [place] Tobacco Quitline Call a Smoking Quitline The [employer]'s Smoking Quitline, (4-747-23K-QUIT) Smokefree.gov, which connects you with your State's Quitline, (9-784-FYTQTHZ) Veterans Smoking Quitline, (8-565-VITMIFB) 4. Opioid use disorder Suboxone 8mg/2mg SL film twice daily - monthly appointments and pill counts, and emties, and UDS discuss therapy options Discussed policy and procedures of suboxone, pill counts, UDS, controlled med contract. Discussed that she will need to come back in one week and will start Sublocade 300mg then in a month Sublocade 100mg per month. Patient educated on Sublocade, reduction of addiction to Suboxone risk and agreed Subolcade [place] insurance will continue Suboxone at this time 5. ELEVATED Blood pressure- PATIENT will see PCP appointment 12/13 to discuss HTN and medication options monitor and document B/P at home discuss B/P and cardiovascular risk educated on healthy b/p 120/80 monitor b/p at home heart healthy diet and excise limit salt intake limit soda intake and caffiene increase water b/p monitored and see PCP 11/26/2024 Dietary counseling and surveillance (ICD-10 - Z71.3) Counting Carbohydrates for Diabetes: Care Instructions material was published, Learning About Carbohydrate (Carb) Counting and Eating Out When You Have Diabetes material was published, Low Sodium Diet (2,000 Milligram): Care Instructions material was published, Learning About Low-Fat Eating material was published, Learning About Low-Carbohydrat e Foods material was published, DASH Diet: Care Instructions material was published, Learning About Low-Fat Eating material was published, Learning About Low-Carbohydrat e Diets material was published, Learning About the Mediterranean Diet material was published, Learning About Healthy Weight material was published, Learning About Low-Carbohydrat e Diets material was published, Low Sodium Diet (2,000 Milligram): Care Instructions material was published, Heart-Healthy Diet: Care Instructions material was published, Learning About Low-Fat Eating material was published, DASH Diet: Care Instructions material was published 1. major depression -Prozac 20 mg daily (3 tabs daily) obtain labs PCP educated on all medications, benefits, side effects and risk, and educated on depression, anxiety, and mood d/o and educated on compliance of medications, appointment's, continue therapy discussion with patient about course of treatment and patient instructions. [place] prescription reviewed 2. Generalized anxiety disorder - GDR plans discuss and will do slow tiration over each visit with plan to stop Xanax decrease Xanax 0.5 mg in evening and Xanax 0.5 mg in am- plan to taper off in near future d/c Buspar 5 mg twice a day for anxiety and panic not taking discuss and educated on increase Vistaril 10 mg three times a day for anxiety and panic Patient was abusing opiated and has been taking suboxone off the street for the past 2-3 years. Discussed moving to sublocade in near future and coverage with insurance to assure that she is not addicted to suboxone and to give steady medication. Patient agreeable. Discussed and educated pt regarding benzodiazepines are generally not intended for prolonged use and that use can cause tolerance, dependence, depression, and associated memory issues including dementias (this list is not exhaustive). Benzodiazepine use is generally not recommended concurrently with pain medications and/or other controlled substances due to increased risks of profound sedation, respiratory depression, coma, and even . They are not to be used with any alcohol, as this combination can also be lethal. Patient was provided caution 3. Nicotine dependence Do not smoke. Nicotine and other chemicals in cigarettes and cigars can cause lung damage. Ask your healthcare provider for information if you currently smoke and need help to quit. E-cigarettes or smokeless tobacco still contain nicotine. Talk to your healthcare provider before you use these products. education on decrease to stopping nicotine products and stop smoking hotline given 1-866-Quit - Yes [place] Tobacco Quitline Call a Smoking Quitline The [employer]'s Smoking Quitline, (8-535-88F-QUIT) Smokefree.gov, which connects you with your State's Quitline, (5-821-HZCAFNT) Veterans Smoking Quitline, (7-668-EKCYGOG) 4. Opioid use disorder Suboxone 8mg/2mg SL film twice daily - monthly appointments and pill counts, and emties, and UDS discuss therapy options Discussed policy and procedures of suboxone, pill counts, UDS, controlled med contract. Discussed that she will need to come back in one week and will start Sublocade 300mg then in a month Sublocade 100mg per month. Patient educated on Sublocade, reduction of addiction to Suboxone risk and agreed Subolcade [place] on insurance will continue Suboxone at this time 5. ELEVATED Blood pressure- PATIENT will see PCP appointment 01/13 to discuss HTN and medication options monitor and document B/P at home discuss B/P and cardiovascular risk educated on healthy b/p 120/80 monitor b/p at home heart healthy diet and excise limit salt intake limit soda intake and caffiene increase water b/p monitored and see PCP 11/26/2024 Major depressive disorder, recurrent, mild (ICD-10 - F33.0) Preventing Depression From Coming Back: Care Instructions material was published, Learning About How to Get Help During a Mental Health Crisis material was published, Learning About Depression Screening material was published, Learning About Depression material was published, Depression Treatment: Care Instructions material was published, Preventing Depression From Coming Back: Care Instructions material was published, Depression Treatment: Care Instructions material was published, Learning About How to Get Help During a Mental Health Crisis material was published, Preventing Depression From Coming Back: Care Instructions material was published, Learning About Depression Screening material was published, Preventing Depression From Coming Back: Care Instructions material was published, Depression Treatment: Care Instructions material was published, Learning About How to Get Help During a Mental Health Crisis material was published 1. major depression -Prozac 20 mg daily (3 tabs daily) obtain labs PCP educated on all medications, benefits, side effects and risk, and educated on depression, anxiety, and mood d/o and educated on compliance of medications, appointment's, continue therapy discussion with patient about course of treatment and patient instructions. [place] prescription reviewed 2. Generalized anxiety disorder - GDR plans discuss and will do slow tiration over each visit with plan to stop Xanax decrease Xanax 0.5 mg in evening and Xanax 0.5 mg in am- plan to taper off in near future d/c Buspar 5 mg twice a day for anxiety and panic not taking discuss and educated on increase Vistaril 10 mg three times a day for anxiety and panic Patient was abusing opiated and has been taking suboxone off the street for the past 2-3 years. Discussed moving to sublocade in near future and coverage with insurance to assure that she is not addicted to suboxone and to give steady medication. Patient agreeable. Discussed and educated pt regarding benzodiazepines are generally not intended for prolonged use and that use can cause tolerance, dependence, depression, and associated memory issues including dementias (this list is not exhaustive). Benzodiazepine use is generally not recommended concurrently with pain medications and/or other controlled substances due to increased risks of profound sedation, respiratory depression, coma, and even . They are not to be used with any alcohol, as this combination can also be lethal. Patient was provided caution 3. Nicotine dependence Do not smoke. Nicotine and other chemicals in cigarettes and cigars can cause lung damage. Ask your healthcare provider for information if you currently smoke and need help to quit. E-cigarettes or smokeless tobacco still contain nicotine. Talk to your healthcare provider before you use these products. education on decrease to stopping nicotine products and stop smoking hotline given 63-Quit - Yes [place] Tobacco Quitline Call a Smoking Quitline The [employer]'s Smoking Quitline, (8-950-06Z-QUIT) Smokefree.gov, which connects you with your State's Quitline, (6-152-PFWOIGX) Veterans Smoking Quitline, (4-254-RFMVVJC) 4. Opioid use disorder Suboxone 8mg/2mg SL film twice daily - monthly appointments and pill counts, and emties, and UDS discuss therapy options Discussed policy and procedures of suboxone, pill counts, UDS, controlled med contract. Discussed that she will need to come back in one week and will start Sublocade 300mg then in a month Sublocade 100mg per month. Patient educated on Sublocade, reduction of addiction to Suboxone risk and agreed Subolcade [place] insurance will continue Suboxone at this time 5. ELEVATED Blood pressure- PATIENT will see PCP appointment 01/13 to discuss HTN and medication options monitor and document B/P at home discuss B/P and cardiovascular risk educated on healthy b/p 120/80 monitor b/p at home heart healthy diet and excise limit salt intake limit soda intake and caffiene increase water b/p monitored and see PCP 10/29/2024 Major depressive disorder, recurrent, mild (ICD-10 - F33.0) Preventing Depression From Coming Back: Care Instructions material was published, Learning About How to Get Help During a Mental Health Crisis material was published, Learning About Depression Screening material was published, Learning About Depression material was published, Depression Treatment: Care Instructions material was published, Preventing Depression From Coming Back: Care Instructions material was published, Depression Treatment: Care Instructions material was published, Learning About How to Get Help During a Mental Health Crisis material was published, Preventing Depression From Coming Back: Care Instructions material was published, Learning About Depression Screening material was published, Preventing Depression From Coming Back: Care Instructions material was published, Depression Treatment: Care Instructions material was published, Learning About How to Get Help During a Mental Health Crisis material was published 1. major depression -Prozac 20 mg daily (3 tabs daily) obtain labs PCP educated on all medications, benefits, side effects and risk, and educated on depression, anxiety, and mood d/o and educated on compliance of medications, appointment's, continue therapy discussion with patient about course of treatment and patient instructions. [place] prescription reviewed 2. Generalized anxiety disorder - GDR plans discuss and will do slow tiration over each visit with plan to stop Xanax decrease Xanax 1 mg in evening and Xanax 0.5 mg in am- plan to taper off in near future discuss and educated on adding Buspar 5 mg twice a day for anxiety and panic discuss and educated on adding Vistaril 10 mg twice a day for anxiety and panic Patient was abusing opiated and has been taking suboxone off the street for the past 2-3 years. Discussed moving to sublocade in near future and coverage with insurance to assure that she is not addicted to suboxone and to give steady medication. Patient agreeable. Discussed and educated pt regarding benzodiazepines are generally not intended for prolonged use and that use can cause tolerance, dependence, depression, and associated memory issues including dementias (this list is not exhaustive). Benzodiazepine use is generally not recommended concurrently with pain medications and/or other controlled substances due to increased risks of profound sedation, respiratory depression, coma, and even . They are not to be used with any alcohol, as this combination can also be lethal. Patient was provided caution 3. Nicotine dependence Do not smoke. Nicotine and other chemicals in cigarettes and cigars can cause lung damage. Ask your healthcare provider for information if you currently smoke and need help to quit. E-cigarettes or smokeless tobacco still contain nicotine. Talk to your healthcare provider before you use these products. education on decrease to stopping nicotine products and stop smoking hotline given 024-Quit - Yes [place] Tobacco Quitline Call a Smoking Quitline The [employer]'s Smoking Quitline, (3-427-99J-QUIT) Smokefree.gov, which connects you with your State's Quitline, (7-231-KDJIORT) Veterans Smoking Quitline, (1-678-FYXNPBB) 4. Opioid use disorder Suboxone 8mg/2mg SL film twice daily - monthly appointments and pill counts, and emties, and UDS discuss therapy options Discussed policy and procedures of suboxone, pill counts, UDS, controlled med contract. Discussed that she will need to come back in one week and will start Sublocade 300mg then in a month Sublocade 100mg per month. Patient educated on Sublocade, reduction of addiction to Suboxone risk and agreed Subolcade [place] on insurance will continue Suboxone at this time 5. ELEVATED Blood pressure- PATIENT will see PCP appointment 12/13 to discuss HTN and medication options monitor and document B/P at home discuss B/P and cardiovascular risk educated on healthy b/p 120/80 monitor b/p at home heart healthy diet and excise limit salt intake limit soda intake and caffiene increase water b/p monitored and see PCP 09/30/2024 Encounter for screening for depression (ICD-10 - Z13.31) Learning About Depression Screening material was published 1. major depression -Prozac 20 mg daily (3 tabs daily) no refill needed today obtain labs PCP educated on all medications, benefits, side effects and risk, and educated on depression, anxiety, and mood d/o and educated on compliance of medications, appointment's, continue therapy discussion with patient about course of treatment and patient instructions. [place] prescription reviewed 2. Generalized anxiety disorder - Xanax 1 mg twice a day- plan to taper off in near future Patient was abusing opiated and has been taking suboxone off the street for the past 2-3 years. Discussed moving to sublocade in near future and coverage with insurance to assure that she is not addicted to suboxone and to give steady medication. Patient agreeable. Discussed and educated pt regarding benzodiazepines are generally not intended for prolonged use and that use can cause tolerance, dependence, depression, and associated memory issues including dementias (this list is not exhaustive). Benzodiazepine use is generally not recommended concurrently with pain medications and/or other controlled substances due to increased risks of profound sedation, respiratory depression, coma, and even . They are not to be used with any alcohol, as this combination can also be lethal. Patient was provided caution 3. Nicotine dependence Do not smoke. Nicotine and other chemicals in cigarettes and cigars can cause lung damage. Ask your healthcare provider for information if you currently smoke and need help to quit. E-cigarettes or smokeless tobacco still contain nicotine. Talk to your healthcare provider before you use these products. education on decrease to stopping nicotine products and stop smoking hotline given 469-Quit - Yes [place] Tobacco Quitline Call a Smoking Quitline The [employer]'s Smoking Quitline, (0-403-90K-QUIT) Smokefree.gov, which connects you with your State's Quitline, (7-211-UYMQLKA) [facility] Smoking Quitline, (5-800-DXSIGWU) 4. Opioid use disorder Suboxone 8mg/2mg SL film twice daily - monthly appointments and pill counts, and emties, and UDS discuss therapy options Discussed policy and procedures of suboxone, pill counts, UDS, controlled med contract. Discussed that she will need to come back in one week and will start Sublocade 300mg then in a month Sublocade 100mg per month. Patient educated on Sublocade, reduction of addiction to Suboxone risk and agreed Spoke with Dr. Omer about plan of care with suboxone and sublocade at last visit Subolcade [place] will continue Suboxone at this time 5. ELEVATED Blood pressure- PATIENT will see PCP and monitor and document B/P at home discuss B/P and cardiovascular risk educated on healthy b/p 120/80 monitor b/p at home heart healthy diet and excise limit salt intake limit soda intake and caffiene increase water b/p monitored and see PCP 09/02/2024 Generalized anxiety disorder (ICD-10 - F41.1) Generalized Anxiety Disorder: Care Instructions material was published, Learning About Anxiety Disorders material was published, Learning About Generalized Anxiety Disorder material was published, Generalized Anxiety Disorder: Care Instructions material was published, Learning About Anxiety Disorders material was published 1. major depression -Prozac 20 mg daily (3 tabs daily) obtain labs PCP educated on all medications, benefits, side effects and risk, and educated on depression, anxiety, and mood d/o and educated on compliance of medications, appointment's, continue therapy discussion with patient about course of treatment and patient instructions. [place] prescription reviewed 2. Generalized anxiety disorder - Xanax 1 mg twice a day- plan to taper off in near future UDS showed suboxone and Benzo- discuss Patient was abusing opiated and has been taking suboxone off the street for the past 2-3 years. Discussed moving to sublocade in near future and coverage with insurance to assure that she is not addicted to suboxone and to give steady medication. Patient agreeable. Discussed and educated pt regarding benzodiazepines are generally not intended for prolonged use and that use can cause tolerance, dependence, depression, and associated memory issues including dementias (this list is not exhaustive). Benzodiazepine use is generally not recommended concurrently with pain medications and/or other controlled substances due to increased risks of profound sedation, respiratory depression, coma, and even . They are not to be used with any alcohol, as this combination can also be lethal. Patient was provided caution 3. Nicotine dependence Do not smoke. Nicotine and other chemicals in cigarettes and cigars can cause lung damage. Ask your healthcare provider for information if you currently smoke and need help to quit. E-cigarettes or smokeless tobacco still contain nicotine. Talk to your healthcare provider before you use these products. education on decrease to stopping nicotine products and stop smoking hotline given -Quit - Yes [place] Tobacco Quitline Call a Smoking Quitline The [employer]'s Smoking Quitline, (8-771-75M-QUIT) Smokefree.gov, which connects you with your State's Quitline, (8-654-RELRFPN) Veterans Smoking Quitline, (7-186-JBUCVCR) 4. Opioid use disorder Suboxone 8mg/2mg SL film twice daily - monthly appointments and pill counts, and emties, and UDS discuss therapy options Discussed policy and procedures of suboxone, pill counts, UDS, controlled med contract. Discussed that she will need to come back in one week and will start Sublocade 300mg then in a month Sublocade 100mg per month. Patient educated on Sublocade, reduction of addiction to Suboxone risk and agreed Spoke with Dr. Omer about plan of care with suboxone and sublocade at last [place]cade [place] will continue Suboxone at this time and patient will like to try Suboclade in future. 5. ELEVATED Blood pressure- PATIENT will see PCP and monitor and document B/P at home discuss B/P and cardiovascular risk educated on healthy b/p 120/80 monitor b/p at home heart healthy diet and excise limit salt intake limit soda intake and caffiene increase water b/p monitored and see PCP 08/02/2024 Generalized anxiety disorder (ICD-10 - F41.1) Generalized Anxiety Disorder: Care Instructions material was published, Learning About Anxiety Disorders material was published, Learning About Generalized Anxiety Disorder material was published, Generalized Anxiety Disorder: Care Instructions material was published, Learning About Anxiety Disorders material was published 1. major depression -Prozac 20 mg daily (3 tabs daily) obtain recent labs PCP educated on all medications, benefits, side effects and risk, and educated on depression, anxiety, and mood d/o and educated on compliance of medications, appointment's, continue therapy discussion with patient about course of treatment and patient instructions. [place] prescription reviewed 2. Generalized anxiety disorder - Xanax 1 mg twice a day- plan to taper off in near future UDS showed suboxone and Benzo- discuss Patient was abusing opiated and has been taking suboxone off the street for the past 2-3 years. Discussed moving to sublocade in near future and coverage with insurance to assure that she is not addicted to suboxone and to give steady medication. Patient agreeable. Discussed and educated pt regarding benzodiazepines are generally not intended for prolonged use and that use can cause tolerance, dependence, depression, and associated memory issues including dementias (this list is not exhaustive). Benzodiazepine use is generally not recommended concurrently with pain medications and/or other controlled substances due to increased risks of profound sedation, respiratory depression, coma, and even . They are not to be used with any alcohol, as this combination can also be lethal. Patient was provided caution 3. Nicotine dependence Do not smoke. Nicotine and other chemicals in cigarettes and cigars can cause lung damage. Ask your healthcare provider for information if you currently smoke and need help to quit. E-cigarettes or smokeless tobacco still contain nicotine. Talk to your healthcare provider before you use these products. education on decrease to stopping nicotine products and stop smoking hotline given 246-Quit - Yes [place] Tobacco Quitline Call a Smoking Quitline The [employer]'s Smoking Quitline, (0-323-84Z-QUIT) Smokefree.gov, which connects you with your State's Quitline, (9-479-KUACOCL) [facility] Smoking Quitline, (6-404-OSRYQYP) 4. Opioid use disorder Suboxone 8mg/2mg SL film twice daily - monthly appointments and pill counts, and emties, and UDS discuss therapy options Discussed policy and procedures of suboxone, pill counts, UDS, controlled med contract. Discussed that she will need to come back in one week and will start Sublocade 300mg then in a month Sublocade 100mg per month. Patient educated on Sublocade, reduction of addiction to Suboxone risk and agreed Spoke with Dr. Omer about plan of care with suboxone and sublocade at last [place] Subolcade [place] will continue Suboxone at this time and patient will like to try Suboclade in future. 5. ELEVATED Blood pressure educated on healthy b/p 120/80 monitor b/p at home heart healthy diet and excise limit salt intake limit soda intake and caffiene increase water b/p monitored and see PCP 07/23/2024 Opioid dependence in remission (ICD-10 - F11.21) Learning About Opioid Use Disorder material was published, Learning About Pain Control When You Have a History of Opioid Use Disorder material was published, Opioid Overdose: Care Instructions material was published, Learning About Substance Use Disorder material was published 1. Mild recurrent major depression -Prozac 20 mg daily (3 tabs daily) obtain recent labs PCP educated on all medications, benefits, side effects and risk, and educated on depression, anxiety, and mood d/o and educated on compliance of medications, appointment's, continue therapy discussion with patient about course of treatment and patient instructions. [place] prescription reviewed 2. Generalized anxiety disorder - Xanax 1 mg twice a day UDS showed suboxone and cannibis and Benzo discuss cannabis use and Benzo and patient reported will stop cannabis Patient was abusing opiated and has been taking suboxone off the street for the past 2-3 years. Discussed moving to sublocade to assure that she is not addicted to suboxone and to give steady medication. Patient agreeable. Instructed on plan of care -one week of suboxone, return to office and will start sublocade 300mg, then 100mg monthly. Discussed and educated pt regarding benzodiazepines are generally not intended for prolonged use and that use can cause tolerance, dependence, depression, and associated memory issues including dementias (this list is not exhaustive). Benzodiazepine use is generally not recommended concurrently with pain medications and/or other controlled substances due to increased risks of profound sedation, respiratory depression, coma, and even . They are not to be used with any alcohol, as this combination can also be lethal. Patient was provided caution 3. Nicotine dependence Do not smoke. Nicotine and other chemicals in cigarettes and cigars can cause lung damage. Ask your healthcare provider for information if you currently smoke and need help to quit. E-cigarettes or smokeless tobacco still contain nicotine. Talk to your healthcare provider before you use these products. education on decrease to stopping nicotine products and stop smoking hotline given -Quit - Yes [place] Tobacco Quitline Call a Smoking Quitline The [employer]'s Smoking Quitline, (9-486-42X-QUIT) Smokefree.gov, which connects you with your State's Quitline, (9-909-MMDTLQB) Veterans Smoking Quitline, (6-900-HHBPADK) 4. Opioid use disorder Suboxone 8mg/2mg SL film daily for 1 week Discussed policy and procedures of suboxone, pill counts, UDS, controlled med contract. Discussed that she will need to come back in one week and will start Sublocade 300mg then in a month Sublocade 100mg per month. Patient educated on Sublocade, reduction of addiction to Suboxone risk and agreed Will give one week of Suboxone until prior auth is completed for Sublocade. Spoke with Dr. Omer about plan of care with suboxone and sublocade. 5. ELEVATED Blood pressure educated on healthy b/p 120/80 monitor b/p at home heart healthy diet and excise limit salt intake limit soda intake and caffiene increase water b/p monitored and see PCP 07/23/2024 Elevated blood pressure reading (ICD-10 - R03.0) Learning About High Blood Pressure material was published, High Blood Pressure: Care Instructions material was published 1. Mild recurrent major depression -Prozac 20 mg daily (3 tabs daily) obtain recent labs PCP educated on all medications, benefits, side effects and risk, and educated on depression, anxiety, and mood d/o and educated on compliance of medications, appointment's, continue therapy discussion with patient about course of treatment and patient instructions. [place] prescription reviewed 2. Generalized anxiety disorder - Xanax 1 mg twice a day UDS showed suboxone and cannibis and Benzo discuss cannabis use and Benzo and patient reported will stop cannabis Patient was abusing opiated and has been taking suboxone off the street for the past 2-3 years. Discussed moving to sublocade to assure that she is not addicted to suboxone and to give steady medication. Patient agreeable. Instructed on plan of care -one week of suboxone, return to office and will start sublocade 300mg, then 100mg monthly. Discussed and educated pt regarding benzodiazepines are generally not intended for prolonged use and that use can cause tolerance, dependence, depression, and associated memory issues including dementias (this list is not exhaustive). Benzodiazepine use is generally not recommended concurrently with pain medications and/or other controlled substances due to increased risks of profound sedation, respiratory depression, coma, and even . They are not to be used with any alcohol, as this combination can also be lethal. Patient was provided caution 3. Nicotine dependence Do not smoke. Nicotine and other chemicals in cigarettes and cigars can cause lung damage. Ask your healthcare provider for information if you currently smoke and need help to quit. E-cigarettes or smokeless tobacco still contain nicotine. Talk to your healthcare provider before you use these products. education on decrease to stopping nicotine products and stop smoking hotline given Quit - Yes [place] Tobacco Quitline Call a Smoking Quitline The [employer]'s Smoking Quitline, (9-288-83I-QUIT) Smokefree.gov, which connects you with your State's Quitline, (8-848-HHMFYKZ) [facility] Smoking Quitline, (1-750-MWUGJRC) 4. Opioid use disorder Suboxone 8mg/2mg SL film daily for 1 week Discussed policy and procedures of suboxone, pill counts, UDS, controlled med contract. Discussed that she will need to come back in one week and will start Sublocade 300mg then in a month Sublocade 100mg per month. Patient educated on Sublocade, reduction of addiction to Suboxone risk and agreed Will give one week of Suboxone until prior auth is completed for Sublocade. Spoke with Dr. Omer about plan of care with suboxone and sublocade. 5. ELEVATED Blood pressure educated on healthy b/p 120/80 monitor b/p at home heart healthy diet and excise limit salt intake limit soda intake and caffiene increase water b/p monitored and see PCP 08/02/2024 Opioid dependence in remission (ICD-10 - F11.21) Learning About Opioid Use Disorder material was published, Learning About Pain Control When You Have a History of Opioid Use Disorder material was published, Opioid Overdose: Care Instructions material was published, Learning About Substance Use Disorder material was published, Learning About Pain Control When You Have a History of Opioid Use Disorder material was published, Learning About Opioid Use Disorder material was published, Substance Use Disorder: Care Instructions material was published, Opioid Withdrawal: Care Instructions material was published, Learning About Medication-Assi sted Treatment for Opioid Use Disorder material was published 1. major depression -Prozac 20 mg daily (3 tabs daily) obtain recent labs PCP educated on all medications, benefits, side effects and risk, and educated on depression, anxiety, and mood d/o and educated on compliance of medications, appointment's, continue therapy discussion with patient about course of treatment and patient instructions. [place] prescription reviewed 2. Generalized anxiety disorder - Xanax 1 mg twice a day- plan to taper off in near future UDS showed suboxone and Benzo- discuss Patient was abusing opiated and has been taking suboxone off the street for the past 2-3 years. Discussed moving to sublocade in near future and coverage with insurance to assure that she is not addicted to suboxone and to give steady medication. Patient agreeable. Discussed and educated pt regarding benzodiazepines are generally not intended for prolonged use and that use can cause tolerance, dependence, depression, and associated memory issues including dementias (this list is not exhaustive). Benzodiazepine use is generally not recommended concurrently with pain medications and/or other controlled substances due to increased risks of profound sedation, respiratory depression, coma, and even . They are not to be used with any alcohol, as this combination can also be lethal. Patient was provided caution 3. Nicotine dependence Do not smoke. Nicotine and other chemicals in cigarettes and cigars can cause lung damage. Ask your healthcare provider for information if you currently smoke and need help to quit. E-cigarettes or smokeless tobacco still contain nicotine. Talk to your healthcare provider before you use these products. education on decrease to stopping nicotine products and stop smoking hotline given 525-Quit - Yes [place] Tobacco Quitline Call a Smoking Quitline The [employer]'s Smoking Quitline, (3-776-60F-QUIT) Smokefree.gov, which connects you with your State's Quitline, (2-135-DDEERBP) Veterans Smoking Quitline, (6-204-EXKRBFW) 4. Opioid use disorder Suboxone 8mg/2mg SL film twice daily - monthly appointments and pill counts, and emties, and UDS discuss therapy options Discussed policy and procedures of suboxone, pill counts, UDS, controlled med contract. Discussed that she will need to come back in one week and will start Sublocade 300mg then in a month Sublocade 100mg per month. Patient educated on Sublocade, reduction of addiction to Suboxone risk and agreed Spoke with Dr. Omer about plan of care with suboxone and sublocade at last visit Jacinda [place] on insurance will continue Suboxone at this time and patient will like to try Suboclade in future. 5. ELEVATED Blood pressure educated on healthy b/p 120/80 monitor b/p at home heart healthy diet and excise limit salt intake limit soda intake and caffiene increase water b/p monitored and see PCP 09/30/2024 Generalized anxiety disorder (ICD-10 - F41.1) Generalized Anxiety Disorder: Care Instructions material was published, Learning About Anxiety Disorders material was published, Learning About Generalized Anxiety Disorder material was published, Generalized Anxiety Disorder: Care Instructions material was published, Learning About Anxiety Disorders material was published 1. major depression -Prozac 20 mg daily (3 tabs daily) no refill needed today obtain labs PCP educated on all medications, benefits, side effects and risk, and educated on depression, anxiety, and mood d/o and educated on compliance of medications, appointment's, continue therapy discussion with patient about course of treatment and patient instructions. [place] prescription reviewed 2. Generalized anxiety disorder - Xanax 1 mg twice a day- plan to taper off in near future Patient was abusing opiated and has been taking suboxone off the street for the past 2-3 years. Discussed moving to sublocade in near future and coverage with insurance to assure that she is not addicted to suboxone and to give steady medication. Patient agreeable. Discussed and educated pt regarding benzodiazepines are generally not intended for prolonged use and that use can cause tolerance, dependence, depression, and associated memory issues including dementias (this list is not exhaustive). Benzodiazepine use is generally not recommended concurrently with pain medications and/or other controlled substances due to increased risks of profound sedation, respiratory depression, coma, and even . They are not to be used with any alcohol, as this combination can also be lethal. Patient was provided caution 3. Nicotine dependence Do not smoke. Nicotine and other chemicals in cigarettes and cigars can cause lung damage. Ask your healthcare provider for information if you currently smoke and need help to quit. E-cigarettes or smokeless tobacco still contain nicotine. Talk to your healthcare provider before you use these products. education on decrease to stopping nicotine products and stop smoking hotline given -Quit - Yes [place] Tobacco Quitline Call a Smoking Quitline The [employer]'s Smoking Quitline, (5-609-83V-QUIT) Smokefree.gov, which connects you with your State's Quitline, (6-983-TDGPABD) Veterans Smoking Quitline, (3-378-YNMSICC) 4. Opioid use disorder Suboxone 8mg/2mg SL film twice daily - monthly appointments and pill counts, and emties, and UDS discuss therapy options Discussed policy and procedures of suboxone, pill counts, UDS, controlled med contract. Discussed that she will need to come back in one week and will start Sublocade 300mg then in a month Sublocade 100mg per month. Patient educated on Sublocade, reduction of addiction to Suboxone risk and agreed Spoke with Dr. Omer about plan of care with suboxone and sublocade at last [place] Subolcade [place] will continue Suboxone at this time 5. ELEVATED Blood pressure- PATIENT will see PCP and monitor and document B/P at home discuss B/P and cardiovascular risk educated on healthy b/p 120/80 monitor b/p at home heart healthy diet and excise limit salt intake limit soda intake and caffiene increase water b/p monitored and see PCP 09/02/2024 Opioid dependence in remission (ICD-10 - F11.21) Learning About Opioid Use Disorder material was published, Learning About Pain Control When You Have a History of Opioid Use Disorder material was published, Opioid Overdose: Care Instructions material was published, Learning About Substance Use Disorder material was published, Learning About Pain Control When You Have a History of Opioid Use Disorder material was published, Learning About Opioid Use Disorder material was published, Substance Use Disorder: Care Instructions material was published, Opioid Withdrawal: Care Instructions material was published, Learning About Medication-Assi sted Treatment for Opioid Use Disorder material was published 1. major depression -Prozac 20 mg daily (3 tabs daily) obtain labs PCP educated on all medications, benefits, side effects and risk, and educated on depression, anxiety, and mood d/o and educated on compliance of medications, appointment's, continue therapy discussion with patient about course of treatment and patient instructions. [place] prescription reviewed 2. Generalized anxiety disorder - Xanax 1 mg twice a day- plan to taper off in near future UDS showed suboxone and Benzo- discuss Patient was abusing opiated and has been taking suboxone off the street for the past 2-3 years. Discussed moving to sublocade in near future and coverage with insurance to assure that she is not addicted to suboxone and to give steady medication. Patient agreeable. Discussed and educated pt regarding benzodiazepines are generally not intended for prolonged use and that use can cause tolerance, dependence, depression, and associated memory issues including dementias (this list is not exhaustive). Benzodiazepine use is generally not recommended concurrently with pain medications and/or other controlled substances due to increased risks of profound sedation, respiratory depression, coma, and even . They are not to be used with any alcohol, as this combination can also be lethal. Patient was provided caution 3. Nicotine dependence Do not smoke. Nicotine and other chemicals in cigarettes and cigars can cause lung damage. Ask your healthcare provider for information if you currently smoke and need help to quit. E-cigarettes or smokeless tobacco still contain nicotine. Talk to your healthcare provider before you use these products. education on decrease to stopping nicotine products and stop smoking hotline given 112-Quit - Yes [place] Tobacco Quitline Call a Smoking Quitline The [employer]'s Smoking Quitline, (7-893-39P-QUIT) Smokefree.gov, which connects you with your State's Quitline, (8-086-ETQLYKT) [facility] Smoking Quitline, (3-219-CJJUPHZ) 4. Opioid use disorder Suboxone 8mg/2mg SL film twice daily - monthly appointments and pill counts, and emties, and UDS discuss therapy options Discussed policy and procedures of suboxone, pill counts, UDS, controlled med contract. Discussed that she will need to come back in one week and will start Sublocade 300mg then in a month Sublocade 100mg per month. Patient educated on Sublocade, reduction of addiction to Suboxone risk and agreed Spoke with Dr. Omer about plan of care with suboxone and sublocade at last [place] Subolcade [place] will continue Suboxone at this time and patient will like to try Suboclade in future. 5. ELEVATED Blood pressure- PATIENT will see PCP and monitor and document B/P at home discuss B/P and cardiovascular risk educated on healthy b/p 120/80 monitor b/p at home heart healthy diet and excise limit salt intake limit soda intake and caffiene increase water b/p monitored and see PCP 10/29/2024 Encounter for screening for depression (ICD-10 - Z13.31) Learning About Depression Screening material was published 1. major depression -Prozac 20 mg daily (3 tabs daily) obtain labs PCP educated on all medications, benefits, side effects and risk, and educated on depression, anxiety, and mood d/o and educated on compliance of medications, appointment's, continue therapy discussion with patient about course of treatment and patient instructions. [place] prescription reviewed 2. Generalized anxiety disorder - GDR plans discuss and will do slow tiration over each visit with plan to stop Xanax decrease Xanax 1 mg in evening and Xanax 0.5 mg in am- plan to taper off in near future discuss and educated on adding Buspar 5 mg twice a day for anxiety and panic discuss and educated on adding Vistaril 10 mg twice a day for anxiety and panic Patient was abusing opiated and has been taking suboxone off the street for the past 2-3 years. Discussed moving to sublocade in near future and coverage with insurance to assure that she is not addicted to suboxone and to give steady medication. Patient agreeable. Discussed and educated pt regarding benzodiazepines are generally not intended for prolonged use and that use can cause tolerance, dependence, depression, and associated memory issues including dementias (this list is not exhaustive). Benzodiazepine use is generally not recommended concurrently with pain medications and/or other controlled substances due to increased risks of profound sedation, respiratory depression, coma, and even . They are not to be used with any alcohol, as this combination can also be lethal. Patient was provided caution 3. Nicotine dependence Do not smoke. Nicotine and other chemicals in cigarettes and cigars can cause lung damage. Ask your healthcare provider for information if you currently smoke and need help to quit. E-cigarettes or smokeless tobacco still contain nicotine. Talk to your healthcare provider before you use these products. education on decrease to stopping nicotine products and stop smoking hotline given 178-Quit - Yes [place] Tobacco Quitline Call a Smoking Quitline The [employer]'s Smoking Quitline, (2-860-09A-QUIT) Smokefree.gov, which connects you with your State's Quitline, (7-623-FYNGAMS) Veterans Smoking Quitline, (1-647-WXMPQWT) 4. Opioid use disorder Suboxone 8mg/2mg SL film twice daily - monthly appointments and pill counts, and emties, and UDS discuss therapy options Discussed policy and procedures of suboxone, pill counts, UDS, controlled med contract. Discussed that she will need to come back in one week and will start Sublocade 300mg then in a month Sublocade 100mg per month. Patient educated on Sublocade, reduction of addiction to Suboxone risk and agreed Subolcade [place] on insurance will continue Suboxone at this time 5. ELEVATED Blood pressure- PATIENT will see PCP appointment 12/13 to discuss HTN and medication options monitor and document B/P at home discuss B/P and cardiovascular risk educated on healthy b/p 120/80 monitor b/p at home heart healthy diet and excise limit salt intake limit soda intake and caffiene increase water b/p monitored and see PCP 11/26/2024 Encounter for screening for depression (ICD-10 - Z13.31) Learning About Depression Screening material was published 1. major depression -Prozac 20 mg daily (3 tabs daily) obtain labs PCP educated on all medications, benefits, side effects and risk, and educated on depression, anxiety, and mood d/o and educated on compliance of medications, appointment's, continue therapy discussion with patient about course of treatment and patient instructions. [place] prescription reviewed 2. Generalized anxiety disorder - GDR plans discuss and will do slow tiration over each visit with plan to stop Xanax decrease Xanax 0.5 mg in evening and Xanax 0.5 mg in am- plan to taper off in near future d/c Buspar 5 mg twice a day for anxiety and panic not taking discuss and educated on increase Vistaril 10 mg three times a day for anxiety and panic Patient was abusing opiated and has been taking suboxone off the street for the past 2-3 years. Discussed moving to sublocade in near future and coverage with insurance to assure that she is not addicted to suboxone and to give steady medication. Patient agreeable. Discussed and educated pt regarding benzodiazepines are generally not intended for prolonged use and that use can cause tolerance, dependence, depression, and associated memory issues including dementias (this list is not exhaustive). Benzodiazepine use is generally not recommended concurrently with pain medications and/or other controlled substances due to increased risks of profound sedation, respiratory depression, coma, and even . They are not to be used with any alcohol, as this combination can also be lethal. Patient was provided caution 3. Nicotine dependence Do not smoke. Nicotine and other chemicals in cigarettes and cigars can cause lung damage. Ask your healthcare provider for information if you currently smoke and need help to quit. E-cigarettes or smokeless tobacco still contain nicotine. Talk to your healthcare provider before you use these products. education on decrease to stopping nicotine products and stop smoking hotline given 537-Quit - Yes [place] Tobacco Quitline Call a Smoking Quitline The [employer]'s Smoking Quitline, (6-751-57X-QUIT) Smokefree.gov, which connects you with your State's Quitline, (5-661-GHHTBMY) [facility] Smoking Quitline, (4-200-BLJLLRP) 4. Opioid use disorder Suboxone 8mg/2mg SL film twice daily - monthly appointments and pill counts, and emties, and UDS discuss therapy options Discussed policy and procedures of suboxone, pill counts, UDS, controlled med contract. Discussed that she will need to come back in one week and will start Sublocade 300mg then in a month Sublocade 100mg per month. Patient educated on Sublocade, reduction of addiction to Suboxone risk and agreed Subolcade [place] insurance will continue Suboxone at this time 5. ELEVATED Blood pressure- PATIENT will see PCP appointment 01/13 to discuss HTN and medication options monitor and document B/P at home discuss B/P and cardiovascular risk educated on healthy b/p 120/80 monitor b/p at home heart healthy diet and excise limit salt intake limit soda intake and caffiene increase water b/p monitored and see PCP 11/26/2024 Generalized anxiety disorder (ICD-10 - F41.1) Generalized Anxiety Disorder: Care Instructions material was published, Learning About Anxiety Disorders material was published, Learning About Generalized Anxiety Disorder material was published, Generalized Anxiety Disorder: Care Instructions material was published, Learning About Anxiety Disorders material was published, Generalized Anxiety Disorder: Care Instructions material was published, Learning About Generalized Anxiety Disorder material was published, Learning About Anxiety Disorders material was published 1. major depression -Prozac 20 mg daily (3 tabs daily) obtain labs PCP educated on all medications, benefits, side effects and risk, and educated on depression, anxiety, and mood d/o and educated on compliance of medications, appointment's, continue therapy discussion with patient about course of treatment and patient instructions. [place] prescription reviewed 2. Generalized anxiety disorder - GDR plans discuss and will do slow tiration over each visit with plan to stop Xanax decrease Xanax 0.5 mg in evening and Xanax 0.5 mg in am- plan to taper off in near future d/c Buspar 5 mg twice a day for anxiety and panic not taking discuss and educated on increase Vistaril 10 mg three times a day for anxiety and panic Patient was abusing opiated and has been taking suboxone off the street for the past 2-3 years. Discussed moving to sublocade in near future and coverage with insurance to assure that she is not addicted to suboxone and to give steady medication. Patient agreeable. Discussed and educated pt regarding benzodiazepines are generally not intended for prolonged use and that use can cause tolerance, dependence, depression, and associated memory issues including dementias (this list is not exhaustive). Benzodiazepine use is generally not recommended concurrently with pain medications and/or other controlled substances due to increased risks of profound sedation, respiratory depression, coma, and even . They are not to be used with any alcohol, as this combination can also be lethal. Patient was provided caution 3. Nicotine dependence Do not smoke. Nicotine and other chemicals in cigarettes and cigars can cause lung damage. Ask your healthcare provider for information if you currently smoke and need help to quit. E-cigarettes or smokeless tobacco still contain nicotine. Talk to your healthcare provider before you use these products. education on decrease to stopping nicotine products and stop smoking hotline given -Quit - Yes [place] Tobacco Quitline Call a Smoking Quitline The [employer]'s Smoking Quitline, (7-775-92I-QUIT) Smokefree.gov, which connects you with your State's Quitline, (5-214-HPECTYS) Veterans Smoking Quitline, (9-541-FVCGKME) 4. Opioid use disorder Suboxone 8mg/2mg SL film twice daily - monthly appointments and pill counts, and emties, and UDS discuss therapy options Discussed policy and procedures of suboxone, pill counts, UDS, controlled med contract. Discussed that she will need to come back in one week and will start Sublocade 300mg then in a month Sublocade 100mg per month. Patient educated on Sublocade, reduction of addiction to Suboxone risk and agreed Subolcade [place] insurance will continue Suboxone at this time 5. ELEVATED Blood pressure- PATIENT will see PCP appointment 01/13 to discuss HTN and medication options monitor and document B/P at home discuss B/P and cardiovascular risk educated on healthy b/p 120/80 monitor b/p at home heart healthy diet and excise limit salt intake limit soda intake and caffiene increase water b/p monitored and see PCP 10/29/2024 Generalized anxiety disorder (ICD-10 - F41.1) Generalized Anxiety Disorder: Care Instructions material was published, Learning About Anxiety Disorders material was published, Learning About Generalized Anxiety Disorder material was published, Generalized Anxiety Disorder: Care Instructions material was published, Learning About Anxiety Disorders material was published, Generalized Anxiety Disorder: Care Instructions material was published, Learning About Generalized Anxiety Disorder material was published, Learning About Anxiety Disorders material was published 1. major depression -Prozac 20 mg daily (3 tabs daily) obtain labs PCP educated on all medications, benefits, side effects and risk, and educated on depression, anxiety, and mood d/o and educated on compliance of medications, appointment's, continue therapy discussion with patient about course of treatment and patient instructions. [place] prescription reviewed 2. Generalized anxiety disorder - GDR plans discuss and will do slow tiration over each visit with plan to stop Xanax decrease Xanax 1 mg in evening and Xanax 0.5 mg in am- plan to taper off in near future discuss and educated on adding Buspar 5 mg twice a day for anxiety and panic discuss and educated on adding Vistaril 10 mg twice a day for anxiety and panic Patient was abusing opiated and has been taking suboxone off the street for the past 2-3 years. Discussed moving to sublocade in near future and coverage with insurance to assure that she is not addicted to suboxone and to give steady medication. Patient agreeable. Discussed and educated pt regarding benzodiazepines are generally not intended for prolonged use and that use can cause tolerance, dependence, depression, and associated memory issues including dementias (this list is not exhaustive). Benzodiazepine use is generally not recommended concurrently with pain medications and/or other controlled substances due to increased risks of profound sedation, respiratory depression, coma, and even . They are not to be used with any alcohol, as this combination can also be lethal. Patient was provided caution 3. Nicotine dependence Do not smoke. Nicotine and other chemicals in cigarettes and cigars can cause lung damage. Ask your healthcare provider for information if you currently smoke and need help to quit. E-cigarettes or smokeless tobacco still contain nicotine. Talk to your healthcare provider before you use these products. education on decrease to stopping nicotine products and stop smoking hotline given 234-Quit - Yes [place] Tobacco Quitline Call a Smoking Quitline The [employer]'s Smoking Quitline, (9-066-04U-QUIT) Smokefree.gov, which connects you with your State's Quitline, (4-680-UWYMABF) Veterans Smoking Quitline, (0-831-LEKIYBO) 4. Opioid use disorder Suboxone 8mg/2mg SL film twice daily - monthly appointments and pill counts, and emties, and UDS discuss therapy options Discussed policy and procedures of suboxone, pill counts, UDS, controlled med contract. Discussed that she will need to come back in one week and will start Sublocade 300mg then in a month Sublocade 100mg per month. Patient educated on Sublocade, reduction of addiction to Suboxone risk and agreed Subolcade [place] will continue Suboxone at this time 5. ELEVATED Blood pressure- PATIENT will see PCP appointment 12/13 to discuss HTN and medication options monitor and document B/P at home discuss B/P and cardiovascular risk educated on healthy b/p 120/80 monitor b/p at home heart healthy diet and excise limit salt intake limit soda intake and caffiene increase water b/p monitored and see PCP 09/30/2024 Elevated blood pressure reading (ICD-10 - R03.0) Learning About High Blood Pressure material was published, High Blood Pressure: Care Instructions material was published, High Blood Pressure: Care Instructions material was published, Learning About High Blood Pressure material was published 1. major depression -Prozac 20 mg daily (3 tabs daily) no refill needed today obtain labs PCP educated on all medications, benefits, side effects and risk, and educated on depression, anxiety, and mood d/o and educated on compliance of medications, appointment's, continue therapy discussion with patient about course of treatment and patient instructions. [place] prescription reviewed 2. Generalized anxiety disorder - Xanax 1 mg twice a day- plan to taper off in near future Patient was abusing opiated and has been taking suboxone off the street for the past 2-3 years. Discussed moving to sublocade in near future and coverage with insurance to assure that she is not addicted to suboxone and to give steady medication. Patient agreeable. Discussed and educated pt regarding benzodiazepines are generally not intended for prolonged use and that use can cause tolerance, dependence, depression, and associated memory issues including dementias (this list is not exhaustive). Benzodiazepine use is generally not recommended concurrently with pain medications and/or other controlled substances due to increased risks of profound sedation, respiratory depression, coma, and even . They are not to be used with any alcohol, as this combination can also be lethal. Patient was provided caution 3. Nicotine dependence Do not smoke. Nicotine and other chemicals in cigarettes and cigars can cause lung damage. Ask your healthcare provider for information if you currently smoke and need help to quit. E-cigarettes or smokeless tobacco still contain nicotine. Talk to your healthcare provider before you use these products. education on decrease to stopping nicotine products and stop smoking hotline given -Quit - Yes [place] Tobacco Quitline Call a Smoking Quitline The [employer]'s Smoking Quitline, (6-669-11T-QUIT) Smokefree.gov, which connects you with your State's Quitline, (5-453-ZZDHTQW) Veterans Smoking Quitline, (5-301-NXGEDKQ) 4. Opioid use disorder Suboxone 8mg/2mg SL film twice daily - monthly appointments and pill counts, and emties, and UDS discuss therapy options Discussed policy and procedures of suboxone, pill counts, UDS, controlled med contract. Discussed that she will need to come back in one week and will start Sublocade 300mg then in a month Sublocade 100mg per month. Patient educated on Sublocade, reduction of addiction to Suboxone risk and agreed Spoke with Dr. Omer about plan of care with suboxone and sublocade at last visit Subolcade [place] will continue Suboxone at this time 5. ELEVATED Blood pressure- PATIENT will see PCP and monitor and document B/P at home discuss B/P and cardiovascular risk educated on healthy b/p 120/80 monitor b/p at home heart healthy diet and excise limit salt intake limit soda intake and caffiene increase water b/p monitored and see PCP 09/02/2024 Elevated blood pressure reading (ICD-10 - R03.0) Learning About High Blood Pressure material was published, High Blood Pressure: Care Instructions material was published, High Blood Pressure: Care Instructions material was published, Learning About High Blood Pressure material was published 1. major depression -Prozac 20 mg daily (3 tabs daily) obtain labs PCP educated on all medications, benefits, side effects and risk, and educated on depression, anxiety, and mood d/o and educated on compliance of medications, appointment's, continue therapy discussion with patient about course of treatment and patient instructions. [place] prescription reviewed 2. Generalized anxiety disorder - Xanax 1 mg twice a day- plan to taper off in near future UDS showed suboxone and Benzo- discuss Patient was abusing opiated and has been taking suboxone off the street for the past 2-3 years. Discussed moving to sublocade in near future and coverage with insurance to assure that she is not addicted to suboxone and to give steady medication. Patient agreeable. Discussed and educated pt regarding benzodiazepines are generally not intended for prolonged use and that use can cause tolerance, dependence, depression, and associated memory issues including dementias (this list is not exhaustive). Benzodiazepine use is generally not recommended concurrently with pain medications and/or other controlled substances due to increased risks of profound sedation, respiratory depression, coma, and even . They are not to be used with any alcohol, as this combination can also be lethal. Patient was provided caution 3. Nicotine dependence Do not smoke. Nicotine and other chemicals in cigarettes and cigars can cause lung damage. Ask your healthcare provider for information if you currently smoke and need help to quit. E-cigarettes or smokeless tobacco still contain nicotine. Talk to your healthcare provider before you use these products. education on decrease to stopping nicotine products and stop smoking hotline given 32Quit - Yes [place] Tobacco Quitline Call a Smoking Quitline The [employer]'s Smoking Quitline, (2-703-09H-QUIT) Smokefree.gov, which connects you with your State's Quitline, (9-684-VPPQRPE) [facility] Smoking Quitline, (3-564-OBHJGVY) 4. Opioid use disorder Suboxone 8mg/2mg SL film twice daily - monthly appointments and pill counts, and emties, and UDS discuss therapy options Discussed policy and procedures of suboxone, pill counts, UDS, controlled med contract. Discussed that she will need to come back in one week and will start Sublocade 300mg then in a month Sublocade 100mg per month. Patient educated on Sublocade, reduction of addiction to Suboxone risk and agreed Spoke with Dr. Omer about plan of care with suboxone and sublocade at last visit Subolcade [place] will continue Suboxone at this time and patient will like to try Suboclade in future. 5. ELEVATED Blood pressure- PATIENT will see PCP and monitor and document B/P at home discuss B/P and cardiovascular risk educated on healthy b/p 120/80 monitor b/p at home heart healthy diet and excise limit salt intake limit soda intake and caffiene increase water b/p monitored and see PCP 08/02/2024 Elevated blood pressure reading (ICD-10 - R03.0) Learning About High Blood Pressure material was published, High Blood Pressure: Care Instructions material was published, High Blood Pressure: Care Instructions material was published, Learning About High Blood Pressure material was published 1. major depression -Prozac 20 mg daily (3 tabs daily) obtain recent labs PCP educated on all medications, benefits, side effects and risk, and educated on depression, anxiety, and mood d/o and educated on compliance of medications, appointment's, continue therapy discussion with patient about course of treatment and patient instructions. [place] prescription reviewed 2. Generalized anxiety disorder - Xanax 1 mg twice a day- plan to taper off in near future UDS showed suboxone and Benzo- discuss Patient was abusing opiated and has been taking suboxone off the street for the past 2-3 years. Discussed moving to sublocade in near future and coverage with insurance to assure that she is not addicted to suboxone and to give steady medication. Patient agreeable. Discussed and educated pt regarding benzodiazepines are generally not intended for prolonged use and that use can cause tolerance, dependence, depression, and associated memory issues including dementias (this list is not exhaustive). Benzodiazepine use is generally not recommended concurrently with pain medications and/or other controlled substances due to increased risks of profound sedation, respiratory depression, coma, and even . They are not to be used with any alcohol, as this combination can also be lethal. Patient was provided caution 3. Nicotine dependence Do not smoke. Nicotine and other chemicals in cigarettes and cigars can cause lung damage. Ask your healthcare provider for information if you currently smoke and need help to quit. E-cigarettes or smokeless tobacco still contain nicotine. Talk to your healthcare provider before you use these products. education on decrease to stopping nicotine products and stop smoking hotline given 350-Quit - Yes [place] Tobacco Quitline Call a Smoking Quitline The [employer]'s Smoking Quitline, (0-716-53V-QUIT) Smokefree.gov, which connects you with your State's Quitline, (6-780-LXBNLYO) [facility] Smoking Quitline, (3-860-DQNDMCH) 4. Opioid use disorder Suboxone 8mg/2mg SL film twice daily - monthly appointments and pill counts, and emties, and UDS discuss therapy options Discussed policy and procedures of suboxone, pill counts, UDS, controlled med contract. Discussed that she will need to come back in one week and will start Sublocade 300mg then in a month Sublocade 100mg per month. Patient educated on Sublocade, reduction of addiction to Suboxone risk and agreed Spoke with Dr. Omer about plan of care with suboxone and sublocade at last visit Subolcade [place] will continue Suboxone at this time and patient will like to try Suboclade in future. 5. ELEVATED Blood pressure educated on healthy b/p 120/80 monitor b/p at home heart healthy diet and excise limit salt intake limit soda intake and caffiene increase water b/p monitored and see PCP 10/29/2024 Elevated blood pressure reading (ICD-10 - R03.0) Learning About High Blood Pressure material was published, High Blood Pressure: Care Instructions material was published, High Blood Pressure: Care Instructions material was published, Learning About High Blood Pressure material was published, High Blood Pressure: Care Instructions material was published, Learning About High Blood Pressure material was published 1. major depression -Prozac 20 mg daily (3 tabs daily) obtain labs PCP educated on all medications, benefits, side effects and risk, and educated on depression, anxiety, and mood d/o and educated on compliance of medications, appointment's, continue therapy discussion with patient about course of treatment and patient instructions. [place] prescription reviewed 2. Generalized anxiety disorder - GDR plans discuss and will do slow tiration over each visit with plan to stop Xanax decrease Xanax 1 mg in evening and Xanax 0.5 mg in am- plan to taper off in near future discuss and educated on adding Buspar 5 mg twice a day for anxiety and panic discuss and educated on adding Vistaril 10 mg twice a day for anxiety and panic Patient was abusing opiated and has been taking suboxone off the street for the past 2-3 years. Discussed moving to sublocade in near future and coverage with insurance to assure that she is not addicted to suboxone and to give steady medication. Patient agreeable. Discussed and educated pt regarding benzodiazepines are generally not intended for prolonged use and that use can cause tolerance, dependence, depression, and associated memory issues including dementias (this list is not exhaustive). Benzodiazepine use is generally not recommended concurrently with pain medications and/or other controlled substances due to increased risks of profound sedation, respiratory depression, coma, and even . They are not to be used with any alcohol, as this combination can also be lethal. Patient was provided caution 3. Nicotine dependence Do not smoke. Nicotine and other chemicals in cigarettes and cigars can cause lung damage. Ask your healthcare provider for information if you currently smoke and need help to quit. E-cigarettes or smokeless tobacco still contain nicotine. Talk to your healthcare provider before you use these products. education on decrease to stopping nicotine products and stop smoking hotline given -Quit - Yes [place] Tobacco Quitline Call a Smoking Quitline The [employer]'s Smoking Quitline, (1-280-77D-QUIT) Smokefree.gov, which connects you with your State's Quitline, (1-075-HMOIIPY) Veterans Smoking Quitline, (3-059-WMACNGO) 4. Opioid use disorder Suboxone 8mg/2mg SL film twice daily - monthly appointments and pill counts, and emties, and UDS discuss therapy options Discussed policy and procedures of suboxone, pill counts, UDS, controlled med contract. Discussed that she will need to come back in one week and will start Sublocade 300mg then in a month Sublocade 100mg per month. Patient educated on Sublocade, reduction of addiction to Suboxone risk and agreed Subolcade [place] on insurance will continue Suboxone at this time 5. ELEVATED Blood pressure- PATIENT will see PCP appointment 12/13 to discuss HTN and medication options monitor and document B/P at home discuss B/P and cardiovascular risk educated on healthy b/p 120/80 monitor b/p at home heart healthy diet and excise limit salt intake limit soda intake and caffiene increase water b/p monitored and see PCP 11/26/2024 Elevated blood pressure reading (ICD-10 - R03.0) Learning About High Blood Pressure material was published, High Blood Pressure: Care Instructions material was published, High Blood Pressure: Care Instructions material was published, Learning About High Blood Pressure material was published, High Blood Pressure: Care Instructions material was published, Learning About High Blood Pressure material was published 1. major depression -Prozac 20 mg daily (3 tabs daily) obtain labs PCP educated on all medications, benefits, side effects and risk, and educated on depression, anxiety, and mood d/o and educated on compliance of medications, appointment's, continue therapy discussion with patient about course of treatment and patient instructions. [place] prescription reviewed 2. Generalized anxiety disorder - GDR plans discuss and will do slow tiration over each visit with plan to stop Xanax decrease Xanax 0.5 mg in evening and Xanax 0.5 mg in am- plan to taper off in near future d/c Buspar 5 mg twice a day for anxiety and panic not taking discuss and educated on increase Vistaril 10 mg three times a day for anxiety and panic Patient was abusing opiated and has been taking suboxone off the street for the past 2-3 years. Discussed moving to sublocade in near future and coverage with insurance to assure that she is not addicted to suboxone and to give steady medication. Patient agreeable. Discussed and educated pt regarding benzodiazepines are generally not intended for prolonged use and that use can cause tolerance, dependence, depression, and associated memory issues including dementias (this list is not exhaustive). Benzodiazepine use is generally not recommended concurrently with pain medications and/or other controlled substances due to increased risks of profound sedation, respiratory depression, coma, and even . They are not to be used with any alcohol, as this combination can also be lethal. Patient was provided caution 3. Nicotine dependence Do not smoke. Nicotine and other chemicals in cigarettes and cigars can cause lung damage. Ask your healthcare provider for information if you currently smoke and need help to quit. E-cigarettes or smokeless tobacco still contain nicotine. Talk to your healthcare provider before you use these products. education on decrease to stopping nicotine products and stop smoking hotline given 385Quit - Yes [place] Tobacco Quitline Call a Smoking Quitline The [employer]'s Smoking Quitline, (2-513-29X-QUIT) Smokefree.gov, which connects you with your State's Quitline, (8-805-QREMNUZ) Veterans Smoking Quitline, (1-924-KGPXJQX) 4. Opioid use disorder Suboxone 8mg/2mg SL film twice daily - monthly appointments and pill counts, and emties, and UDS discuss therapy options Discussed policy and procedures of suboxone, pill counts, UDS, controlled med contract. Discussed that she will need to come back in one week and will start Sublocade 300mg then in a month Sublocade 100mg per month. Patient educated on Sublocade, reduction of addiction to Suboxone risk and agreed Subolcade [place] on insurance will continue Suboxone at this time 5. ELEVATED Blood pressure- PATIENT will see PCP appointment 01/13 to discuss HTN and medication options monitor and document B/P at home discuss B/P and cardiovascular risk educated on healthy b/p 120/80 monitor b/p at home heart healthy diet and excise limit salt intake limit soda intake and caffiene increase water b/p monitored and see PCP 07/23/2024 Other Fluoxetine material was published, Alprazolam material was published, Buprenorphine Injection (opioid dependence) material was published, Buprenorphine Sublingual and Buccal (opioid dependence) [ASHP] material was published 1. Mild recurrent major depression -Prozac 20 mg daily (3 tabs daily) obtain recent labs PCP educated on all medications, benefits, side effects and risk, and educated on depression, anxiety, and mood d/o and educated on compliance of medications, appointment's, continue therapy discussion with patient about course of treatment and patient instructions. [place] prescription reviewed 2. Generalized anxiety disorder - Xanax 1 mg twice a day UDS showed suboxone and cannibis and Benzo discuss cannabis use and Benzo and patient reported will stop cannabis Patient was abusing opiated and has been taking suboxone off the street for the past 2-3 years. Discussed moving to sublocade to assure that she is not addicted to suboxone and to give steady medication. Patient agreeable. Instructed on plan of care -one week of suboxone, return to office and will start sublocade 300mg, then 100mg monthly. Discussed and educated pt regarding benzodiazepines are generally not intended for prolonged use and that use can cause tolerance, dependence, depression, and associated memory issues including dementias (this list is not exhaustive). Benzodiazepine use is generally not recommended concurrently with pain medications and/or other controlled substances due to increased risks of profound sedation, respiratory depression, coma, and even . They are not to be used with any alcohol, as this combination can also be lethal. Patient was provided caution 3. Nicotine dependence Do not smoke. Nicotine and other chemicals in cigarettes and cigars can cause lung damage. Ask your healthcare provider for information if you currently smoke and need help to quit. E-cigarettes or smokeless tobacco still contain nicotine. Talk to your healthcare provider before you use these products. education on decrease to stopping nicotine products and stop smoking hotline given -Quit - Yes [place] Tobacco Quitline Call a Smoking Quitline The [employer]'s Smoking Quitline, (0-784-97O-QUIT) Smokefree.gov, which connects you with your State's Quitline, (7-871-OIOTWJS) Veterans Smoking Quitline, (0-819-HUHIBYL) 4. Opioid use disorder Suboxone 8mg/2mg SL film daily for 1 week Discussed policy and procedures of suboxone, pill counts, UDS, controlled med contract. Discussed that she will need to come back in one week and will start Sublocade 300mg then in a month Sublocade 100mg per month. Patient educated on Sublocade, reduction of addiction to Suboxone risk and agreed Will give one week of Suboxone until prior auth is completed for Sublocade. Spoke with Dr. Omer about plan of care with suboxone and sublocade. 5. ELEVATED Blood pressure educated on healthy b/p 120/80 monitor b/p at home heart healthy diet and excise limit salt intake limit soda intake and caffiene increase water b/p monitored and see PCP 10/29/2024 Other Buprenorphine Sublingual and Buccal (opioid dependence) material was published, Fluoxetine material was published, Alprazolam material was published, Buspirone material was published, Hydroxyzine material was published 1. major depression -Prozac 20 mg daily (3 tabs daily) obtain labs PCP educated on all medications, benefits, side effects and risk, and educated on depression, anxiety, and mood d/o and educated on compliance of medications, appointment's, continue therapy discussion with patient about course of treatment and patient instructions. [place] prescription reviewed 2. Generalized anxiety disorder - GDR plans discuss and will do slow tiration over each visit with plan to stop Xanax decrease Xanax 1 mg in evening and Xanax 0.5 mg in am- plan to taper off in near future discuss and educated on adding Buspar 5 mg twice a day for anxiety and panic discuss and educated on adding Vistaril 10 mg twice a day for anxiety and panic Patient was abusing opiated and has been taking suboxone off the street for the past 2-3 years. Discussed moving to sublocade in near future and coverage with insurance to assure that she is not addicted to suboxone and to give steady medication. Patient agreeable. Discussed and educated pt regarding benzodiazepines are generally not intended for prolonged use and that use can cause tolerance, dependence, depression, and associated memory issues including dementias (this list is not exhaustive). Benzodiazepine use is generally not recommended concurrently with pain medications and/or other controlled substances due to increased risks of profound sedation, respiratory depression, coma, and even . They are not to be used with any alcohol, as this combination can also be lethal. Patient was provided caution 3. Nicotine dependence Do not smoke. Nicotine and other chemicals in cigarettes and cigars can cause lung damage. Ask your healthcare provider for information if you currently smoke and need help to quit. E-cigarettes or smokeless tobacco still contain nicotine. Talk to your healthcare provider before you use these products. education on decrease to stopping nicotine products and stop smoking hotline given 312-Quit - Yes [place] Tobacco Quitline Call a Smoking Quitline The [employer]'s Smoking Quitline, (2-155-76H-QUIT) Smokefree.gov, which connects you with your [facility]'s Quitline, (6-186-AMJNTCS) Veterans Smoking Quitline, (1-228-FCKBQZM) 4. Opioid use disorder Suboxone 8mg/2mg SL film twice daily - monthly appointments and pill counts, and emties, and UDS discuss therapy options Discussed policy and procedures of suboxone, pill counts, UDS, controlled med contract. Discussed that she will need to come back in one week and will start Sublocade 300mg then in a month Sublocade 100mg per month. Patient educated on Sublocade, reduction of addiction to Suboxone risk and agreed Subolcade [place] on insurance will continue Suboxone at this time 5. ELEVATED Blood pressure- PATIENT will see PCP appointment 12/13 to discuss HTN and medication options monitor and document B/P at home discuss B/P and cardiovascular risk educated on healthy b/p 120/80 monitor b/p at home heart healthy diet and excise limit salt intake limit soda intake and caffiene increase water b/p monitored and see PCP 12/28/2024 Other Counting Carbohydrates for Diabetes: Care Instructions material was published, Learning About Carbohydrate (Carb) Counting and Eating Out When You Have Diabetes material was published, Low Sodium Diet (2,000 Milligram): Care Instructions material was published, Learning About Low-Fat Eating material was published, Learning About Low-Carbohydrat e Foods material was published, DASH Diet: Care Instructions material was published, Learning About Low-Fat Eating material was published, Learning About Low-Carbohydrat e Diets material was published, Learning About the Mediterranean Diet material was published, Learning About Healthy Weight material was published, Learning About Low-Carbohydrat e Diets material was published, Low Sodium Diet (2,000 Milligram): Care Instructions material was published, Heart-Healthy Diet: Care Instructions material was published, Learning About Low-Fat Eating material was published, DASH Diet: Care Instructions material was published Learning About Depression Screening material was published Learning About Depression Screening material was published 1. 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 [place] prescription reviewed 2. Generalized anxiety disorder - GDR plans discuss and will do slow tiration with plan to stop Xanax Xanax 0.5 mg in evening and Xanax 0.5 mg in am- plan to continue at this dose for next 3 months plan to taper off in near future discuss and educated on increase Vistaril 25 mg three times a day for anxiety and panic pateint reported 10 mg dose taking 3 tabs at a time recently Patient was abusing opiated and has been taking suboxone off the street for the past 2-3 years. Discussed moving to sublocade in near future and coverage with insurance to assure that she is not addicted to suboxone and to give steady medication. Patient agreeable. Discussed and educated pt regarding benzodiazepines are generally not intended for prolonged use and that use can cause tolerance, dependence, depression, and associated memory issues including dementias (this list is not exhaustive). Benzodiazepine use is generally not recommended concurrently with pain medications and/or other controlled substances due to increased risks of profound sedation, respiratory depression, coma, and even . They are not to be used with any alcohol, as this combination can also be lethal. Patient was provided caution 3. Nicotine dependence Do not smoke. Nicotine and other chemicals in cigarettes and cigars can cause lung damage. Ask your healthcare provider for information if you currently smoke and need help to quit. E-cigarettes or smokeless tobacco still contain nicotine. Talk to your healthcare provider before you use these products. education on decrease to stopping nicotine products and stop smoking hotline given Quit - Yes [place] Tobacco Quitline Call a Smoking Quitline The [employer]'s Smoking Quitline, (4-849-26D-QUIT) Smokefree.gov, which connects you with your State's Quitline, (3-636-GDJARBQ) Veterans Smoking Quitline, (0-728-OZFNGBJ) 4. Opioid use disorder Suboxone 8mg/2mg SL film twice daily - monthly appointments and pill counts, and emties, and UDS discuss therapy options Discussed policy and procedures of suboxone, pill counts, UDS, controlled med contract. Discussed that she will need to come back in one week and will start Sublocade 300mg then in a month Sublocade 100mg per month. Patient educated on Sublocade, reduction of addiction to Suboxone risk and agreed Subolcade [place] on insurance will continue Suboxone at this time 5. ELEVATED Blood pressure- PATIENT will see PCP appointment 01/13 to discuss HTN and medication options monitor and document B/P at home discuss B/P and cardiovascular risk educated on healthy b/p 120/80 monitor b/p at home heart healthy diet and excise limit salt intake limit soda intake and caffiene increase water b/p monitored and see PCP Plan Of Treatment Next Appt Details Provider Name:Bernice Fofana , 01/25/2025 02:45:00 PM, [address] [facility] [address], [place], [id number], Insurance Providers Payer Name Payer Address Payer Phone Subscriber Number Group Number Insured Name Patient Relationship to Insured Coverage Start Date Coverage End Date [facility] [address] [address] [place] [phone] [id number] BERNICE NAPOLES Self - patient is the insured Medical (General) History Medical History History ICD Code Problems: Alcohol dependence Generalized anxiety disorder Long-term drug therapy Migraine Mild recurrent major depression Nicotine dependence , Surgical History Surgery Date(Month/Year) Other 06/06/2004
== END 2025-01-19 14:46 | disposition home or self-care (01) ==
PROVIDERS: PCP Internal Medicine; Visit Provider Internal Medicine
DX: Z12.2 Encounter for screening for malignant neoplasm of respiratory organs (principal); F17.210 Nicotine dependence, cigarettes, uncomplicated
CPT/HCPCS: 71271